=== PATIENT | female | born 1970 | race Caucasian/White ===

== ENCOUNTER → 2017-05-25 15:54 | Outpatient (CLI) | payer OTHER, SELFPAY ==
[2017-05-25 17:50] LABS: Absolute Lymphocyte Count 3.18 X10^3/ul (0.83-4.51); Absolute Neutrophil Count 4.8 X10^3/uL (2.0-7.7); Basophil# 0.08 X10^3/uL; Basophil% 0.9 % (0-1); Eosinophil# 0.28 X10^3/uL; Eosinophils% 3.1 % (0-5); Hematocrit 41.3 % (37-47); Hemoglobin 13.3 g/dl (12.0-15.0); Lymphocyte # 3.18 X10^3/ul (4.0); Lymphocyte % 35.4 % (19-41); Mean Corp Hgb Conc 32.2 g/gl (32-36); Mean Corpuscular Hgb 28.2 pg (27.0-32.0); Mean Corpuscular Volume 87.5 fL (81-99); Mean Platelet Vol. 11.7 fl (6.2-12.0); Monocyte% 6.7 % (0-10); Neutrophil # 4.83 X10^3/uL (2.7-7.7); Neutrophil % 53.8 % (47-70); Platelet Count 339 K/mm3 (150-450); RBC Distribution Width CV 13.6 % (11.6-14.6); RBC Distribution Width SD 42.6 fl (35.1-43.9); Red Blood Count 4.72 M/mm3 (4.2-5.4)
[2017-05-25 17:53] LABS: POSITIVE COUNT NO; POSITIVE DIFFERENTIAL NO; POSITIVE MORPHOLOGY NO
[2017-05-25 17:55] LABS: ALB/GLOB Ratio 0.8 RATIO (0.9-2.4); AST(SGOT) 19 U/L (15-37); Alanine Aminotransfer ALT/SGPT 32 U/L (13-56); Albumin, Serum 3.3 g/dL (3.2-5.0); Alkaline Phosphatase 80 U/L (45-117); Anion Gap 7 (5-15); BUN 15 mg/dL (7-18); BUN/Creat Ratio 17.2 RATIO (10-20); Calcium,Total 8.9 mg/dL (8.5-10.1); Chloride 102 mmol/L (98-107); Creatinine, Serum 0.87 mg/dL (0.55-1.02); EST Glomerular Filtration Rate 74 mL/min (>60); Est Glom Filt Rate - Afr Amer 90 mL/min (>60); Globulin 4.4 g/dL (2.2-4.2); Glucose 157 mg/dL (74-106); Potassium 4.1 mmol/L (3.5-5.1); Protein, Total 7.7 g/dL (6.4-8.2); Sodium Level 138 mmol/L (136-145)
== END ==
LOC: MTLAB 15:56
PROVIDERS: Family Provider Family Medicine; PCP Family Medicine; Visit Provider Internal Medicine Rheumatology
DX: L40.59 Other psoriatic arthropathy (principal); L40.8 Other psoriasis; M19.071 Primary osteoarthritis, right ankle and foot; M21.40 Flat foot [pes planus] (acquired), unspecified foot; M47.897 Other spondylosis, lumbosacral region; M47.892 Other spondylosis, cervical region; I10 Essential (primary) hypertension; R51 Headache; Z79.899 Other long term (current) drug therapy
CPT/HCPCS: 36415; 80053; 85025

== ENCOUNTER → 2017-08-16 16:07 | Outpatient (CLI) | payer OTHER, SELFPAY ==
[2017-08-16 17:50] LABS: Absolute Lymphocyte Count 2.83 X10^3/ul (0.83-4.51); Absolute Neutrophil Count 7.9 X10^3/uL (2.0-7.7); Basophil# 0.02 X10^3/uL; Basophil% 0.2 % (0-1); Eosinophil# 0.14 X10^3/uL; Eosinophils% 1.2 % (0-5); Hematocrit 39.4 % (37-47); Lymphocyte # 2.83 X10^3/ul (4.0); Mean Corpuscular Volume 84.7 fL (81-99); Mean Platelet Vol. 11.2 fl (6.2-12.0); Monocyte# 0.47 X10^3/uL; Monocyte% 4.1 % (0-10); Neutrophil # 7.85 X10^3/uL (2.7-7.7); Neutrophil % 69.2 % (47-70); Platelet Count 379 K/mm3 (150-450); RBC Distribution Width CV 14.2 % (11.6-14.6); RBC Distribution Width SD 43.1 fl (35.1-43.9); Red Blood Count 4.65 M/mm3 (4.2-5.4); White Blood Count 11.3 K/mm3 (4.4-11.0)
[2017-08-16 17:53] LABS: POSITIVE COUNT NO; POSITIVE DIFFERENTIAL NO; POSITIVE MORPHOLOGY NO
[2017-08-16 18:42] LABS: ALB/GLOB Ratio 0.7 RATIO (0.9-2.4); AST(SGOT) 8 U/L (15-37); Alanine Aminotransfer ALT/SGPT 25 U/L (13-56); Albumin, Serum 3.4 g/dL (3.2-5.0); Alkaline Phosphatase 80 U/L (45-117); Anion Gap 6 (5-15); BUN 18 mg/dL (7-18); BUN/Creat Ratio 20.5 RATIO (10-20); Chloride 104 mmol/L (98-107); Creatinine, Serum 0.88 mg/dL (0.55-1.02); EST Glomerular Filtration Rate 73 mL/min (>60); Est Glom Filt Rate - Afr Amer 89 mL/min (>60); Globulin 4.7 g/dL (2.2-4.2); Glucose 153 mg/dL (74-106); Potassium 4.1 mmol/L (3.5-5.1); Protein, Total 8.1 g/dL (6.4-8.2); Sodium Level 137 mmol/L (136-145)
== END ==
LOC: MTLAB 16:09
PROVIDERS: Family Provider Family Medicine; PCP Family Medicine; Visit Provider Internal Medicine Rheumatology
DX: L40.59 Other psoriatic arthropathy (principal); L40.8 Other psoriasis; M19.071 Primary osteoarthritis, right ankle and foot; M21.40 Flat foot [pes planus] (acquired), unspecified foot; M47.897 Other spondylosis, lumbosacral region; M47.892 Other spondylosis, cervical region; I10 Essential (primary) hypertension; R51 Headache; Z79.899 Other long term (current) drug therapy
CPT/HCPCS: 36415; 80053; 85025

== ENCOUNTER → 2017-11-02 16:04 | Outpatient (CLI) | payer OTHER, SELFPAY ==
[2017-11-02 17:30] LABS: Absolute Lymphocyte Count 2.38 X10^3/ul (0.83-4.51); Absolute Neutrophil Count 6.5 X10^3/uL (2.0-7.7); Basophil# 0.06 X10^3/uL; Basophil% 0.6 % (0-1); Eosinophil# 0.25 X10^3/uL; Eosinophils% 2.6 % (0-5); Hematocrit 39.6 % (37-47); Hemoglobin 12.7 g/dl (12.0-15.0); Lymphocyte # 2.38 X10^3/ul (4.0); Lymphocyte % 24.6 % (19-41); Mean Corp Hgb Conc 32.1 g/gl (32-36); Mean Corpuscular Hgb 27.4 pg (27.0-32.0); Mean Corpuscular Volume 85.5 fL (81-99); Mean Platelet Vol. 11.5 fl (6.2-12.0); Monocyte% 5.2 % (0-10); Neutrophil # 6.46 X10^3/uL (2.7-7.7); Neutrophil % 66.9 % (47-70); Platelet Count 388 K/mm3 (150-450); RBC Distribution Width CV 14.3 % (11.6-14.6); RBC Distribution Width SD 44.4 fl (35.1-43.9); Red Blood Count 4.63 M/mm3 (4.2-5.4); White Blood Count 9.7 K/mm3 (4.4-11.0)
[2017-11-02 17:32] LABS: POSITIVE COUNT NO; POSITIVE DIFFERENTIAL NO; POSITIVE MORPHOLOGY NO
[2017-11-02 17:59] LABS: ALB/GLOB Ratio 0.6 RATIO (0.9-2.4); AST(SGOT) 11 U/L (15-37); Alanine Aminotransfer ALT/SGPT 22 U/L (13-56); Albumin, Serum 3.2 g/dL (3.2-5.0); Alkaline Phosphatase 79 U/L (45-117); Anion Gap 7 (5-15); BUN 15 mg/dL (7-18); BUN/Creat Ratio 16.9 RATIO (10-20); Chloride 105 mmol/L (98-107); Creatinine, Serum 0.89 mg/dL (0.55-1.02); EST Glomerular Filtration Rate 72 mL/min (>60); Est Glom Filt Rate - Afr Amer 87 mL/min (>60); Glucose 148 mg/dL (74-106); Protein, Total 8.2 g/dL (6.4-8.2); Sodium Level 137 mmol/L (136-145)
== END ==
LOC: MTLAB 16:07
PROVIDERS: Family Provider Family Medicine; PCP Family Medicine; Visit Provider Internal Medicine Rheumatology
DX: L40.59 Other psoriatic arthropathy (principal); L40.8 Other psoriasis; M19.071 Primary osteoarthritis, right ankle and foot; M21.40 Flat foot [pes planus] (acquired), unspecified foot; M47.897 Other spondylosis, lumbosacral region; M47.892 Other spondylosis, cervical region; I10 Essential (primary) hypertension; R51 Headache; Z79.899 Other long term (current) drug therapy
CPT/HCPCS: 36415; 80053; 85025

== ENCOUNTER → 2018-02-05 07:36 | Outpatient (CLI) | payer OTHER, SELFPAY ==
[2018-02-05 11:03] LABS: ALB/GLOB Ratio 0.8 RATIO (0.9-2.4); AST(SGOT) 19 U/L (15-37); Alanine Aminotransfer ALT/SGPT 38 U/L (13-56); Albumin, Serum 3.4 g/dL (3.2-5.0); Alkaline Phosphatase 72 U/L (45-117); Anion Gap 12 (5-15); BUN 10 mg/dL (7-18); BUN/Creat Ratio 12.2 RATIO (10-20); Calcium,Total 8.8 mg/dL (8.5-10.1); Chloride 105 mmol/L (98-107); Creatinine, Serum 0.82 mg/dL (0.55-1.02); EST Glomerular Filtration Rate 79 mL/min (>60); Est Glom Filt Rate - Afr Amer 96 mL/min (>60); Globulin 4.5 g/dL (2.2-4.2); Glucose 130 mg/dL (74-106); Protein, Total 7.9 g/dL (6.4-8.2); Sodium Level 141 mmol/L (136-145)
[2018-02-05 12:45] LABS: Absolute Lymphocyte Count 2.34 X10^3/ul (0.83-4.51); Absolute Neutrophil Count 5.5 X10^3/uL (2.0-7.7); Basophil# 0.05 X10^3/uL; Basophil% 0.6 % (0-1); Eosinophil# 0.26 X10^3/uL; Hematocrit 40.5 % (37-47); Hemoglobin 12.8 g/dl (12.0-15.0); Lymphocyte # 2.34 X10^3/ul (4.0); Lymphocyte % 26.8 % (19-41); Mean Corp Hgb Conc 31.6 g/gl (32-36); Mean Corpuscular Hgb 28.1 pg (27.0-32.0); Mean Platelet Vol. 11.5 fl (6.2-12.0); Monocyte# 0.53 X10^3/uL; Monocyte% 6.1 % (0-10); Neutrophil # 5.54 X10^3/uL (2.7-7.7); Neutrophil % 63.3 % (47-70); Platelet Count 355 K/mm3 (150-450); RBC Distribution Width CV 16.2 % (11.6-14.6); RBC Distribution Width SD 52.7 fl (35.1-43.9); Red Blood Count 4.55 M/mm3 (4.2-5.4); White Blood Count 8.7 K/mm3 (4.4-11.0)
[2018-02-05 12:48] LABS: POSITIVE COUNT NO; POSITIVE DIFFERENTIAL NO; POSITIVE MORPHOLOGY NO
== END ==
LOC: MTLAB 07:39
PROVIDERS: Family Provider Family Medicine; PCP Family Medicine; Referring Provider Internal Medicine Rheumatology; Visit Provider Internal Medicine Rheumatology
DX: L40.59 Other psoriatic arthropathy (principal); L40.8 Other psoriasis; M19.071 Primary osteoarthritis, right ankle and foot; M21.40 Flat foot [pes planus] (acquired), unspecified foot; M47.897 Other spondylosis, lumbosacral region; M47.892 Other spondylosis, cervical region; I10 Essential (primary) hypertension; R51 Headache; Z79.899 Other long term (current) drug therapy
CPT/HCPCS: 36415; 80053; 85025

== ENCOUNTER → 2018-02-07 10:35 | Outpatient (CLI) | payer OTHER, SELFPAY ==
--- NOTE | 2018-02-07 13:32 | NEURO ---
NCS and/or EMG Patient Report Ordering Doctor: Nancy Arellano DATE OF SERVICE: 02/07/18 Andie Nickerson is a 47-year-old female who presents for electrodiagnostic testing of the right upper limb. Electrodiagnostic findings: Right median motor nerve demonstrates normal distal latency, amplitude and conduction velocity. Normal right ulnar motor response. Normal right ulnar and median F-wave. Sensory responses are within normal limits. Needle EMG testing of the right upper limb shows no evidence of denervation with normal motor unit action potentials. Electrodiagnostic impression: This is a normal electrodiagnostic study of the right upper limb. There is no electrodiagnostic evidence for peripheral neuropathy, including carpal tunnel syndrome. There is no electrodiagnostic evidence for cervical radiculopathy. If there are any further questions, please do not hesitate to contact me
== END ==
LOC: PSN 10:36
PROVIDERS: Family Provider Family Medicine; PCP Family Medicine; Referring Provider Family Medicine; Visit Provider Family Medicine
DX: G56.01 Carpal tunnel syndrome, right upper limb (principal)
CPT/HCPCS: 95886; 95909

== ENCOUNTER → 2018-05-04 08:05 | Outpatient (CLI) | payer OTHER, SELFPAY ==
[2018-05-04 10:35] LABS: Absolute Lymphocyte Count 2.54 X10^3/ul (0.83-4.51); Absolute Neutrophil Count 5.4 X10^3/uL (2.0-7.7); Basophil# 0.08 X10^3/uL; Basophil% 0.9 % (0-1); Eosinophils% 2.2 % (0-5); Hematocrit 39.9 % (37-47); Lymphocyte # 2.54 X10^3/ul (4.0); Lymphocyte % 28.5 % (19-41); Mean Corp Hgb Conc 32.6 g/gl (32-36); Mean Corpuscular Hgb 28.6 pg (27.0-32.0); Mean Corpuscular Volume 87.9 fL (81-99); Mean Platelet Vol. 11.8 fl (6.2-12.0); Monocyte# 0.65 X10^3/uL; Monocyte% 7.3 % (0-10); Neutrophil % 60.8 % (47-70); Platelet Count 334 K/mm3 (150-450); RBC Distribution Width CV 14.2 % (11.6-14.6); RBC Distribution Width SD 44.1 fl (35.1-43.9); Red Blood Count 4.54 M/mm3 (4.2-5.4); White Blood Count 8.9 K/mm3 (4.4-11.0)
[2018-05-04 10:39] LABS: POSITIVE COUNT NO; POSITIVE DIFFERENTIAL NO; POSITIVE MORPHOLOGY NO
[2018-05-04 10:46] LABS: ALB/GLOB Ratio 0.8 RATIO (0.9-2.4); AST(SGOT) 12 U/L (15-37); Alanine Aminotransfer ALT/SGPT 31 U/L (13-56); Albumin, Serum 3.3 g/dL (3.2-5.0); Alkaline Phosphatase 78 U/L (45-117); Anion Gap 6 (5-15); BUN 10 mg/dL (7-18); BUN/Creat Ratio 10.9 RATIO (10-20); Calcium,Total 8.4 mg/dL (8.5-10.1); Chloride 107 mmol/L (98-107); Creatinine, Serum 0.92 mg/dL (0.55-1.02); EST Glomerular Filtration Rate 70 mL/min (>60); Est Glom Filt Rate - Afr Amer 84 mL/min (>60); Globulin 4.4 g/dL (2.2-4.2); Glucose 107 mg/dL (74-106); Potassium 3.9 mmol/L (3.5-5.1); Protein, Total 7.7 g/dL (6.4-8.2); Sodium Level 140 mmol/L (136-145)
== END ==
LOC: MTLAB 08:11
PROVIDERS: Family Provider Family Medicine; PCP Family Medicine; Referring Provider Internal Medicine Rheumatology; Visit Provider Internal Medicine Rheumatology
DX: L40.59 Other psoriatic arthropathy (principal); L40.8 Other psoriasis; M19.071 Primary osteoarthritis, right ankle and foot; M21.40 Flat foot [pes planus] (acquired), unspecified foot; M47.897 Other spondylosis, lumbosacral region; M47.892 Other spondylosis, cervical region; I10 Essential (primary) hypertension; R51 Headache; Z79.899 Other long term (current) drug therapy
CPT/HCPCS: 36415; 80053; 85025

== ENCOUNTER → 2018-07-23 | Outpatient (CLI) | payer OTHER, SELFPAY ==
[2018-07-23 17:47] LABS: ALB/GLOB Ratio 0.9 RATIO (0.9-2.4); AST(SGOT) 38 U/L (15-37); Alanine Aminotransfer ALT/SGPT 61 U/L (13-56); Albumin, Serum 3.8 g/dL (3.2-5.0); Alkaline Phosphatase 80 U/L (45-117); Anion Gap 5 (5-15); BUN 13 mg/dL (7-18); BUN/Creat Ratio 12.5 RATIO (10-20); Chloride 103 mmol/L (98-107); Creatinine, Serum 1.04 mg/dL (0.55-1.02); EST Glomerular Filtration Rate 60 mL/min (>60); Est Glom Filt Rate - Afr Amer 73 mL/min (>60); Globulin 4.3 g/dL (2.2-4.2); Glucose 116 mg/dL (74-106); Potassium 3.9 mmol/L (3.5-5.1); Protein, Total 8.1 g/dL (6.4-8.2); Sodium Level 136 mmol/L (136-145)
[2018-07-23 17:58] LABS: Absolute Lymphocyte Count 3.02 X10^3/ul (0.83-4.51); Absolute Neutrophil Count 4.2 X10^3/uL (2.0-7.7); Basophil# 0.09 X10^3/uL; Basophil% 1.1 % (0-1); Eosinophil# 0.37 X10^3/uL; Eosinophils% 4.4 % (0-5); Hematocrit 41.1 % (37-47); Hemoglobin 13.5 g/dl (12.0-15.0); Lymphocyte # 3.02 X10^3/ul (4.0); Lymphocyte % 35.7 % (19-41); Mean Corp Hgb Conc 32.8 g/gl (32-36); Mean Corpuscular Hgb 28.6 pg (27.0-32.0); Mean Corpuscular Volume 87.1 fL (81-99); Mean Platelet Vol. 10.9 fl (6.2-12.0); Monocyte# 0.75 X10^3/uL; Monocyte% 8.9 % (0-10); Neutrophil % 49.7 % (47-70); Platelet Count 355 K/mm3 (150-450); RBC Distribution Width CV 14.4 % (11.6-14.6); RBC Distribution Width SD 45.8 fl (35.1-43.9); Red Blood Count 4.72 M/mm3 (4.2-5.4); White Blood Count 8.5 K/mm3 (4.4-11.0)
[2018-07-23 17:59] LABS: POSITIVE COUNT NO; POSITIVE DIFFERENTIAL NO; POSITIVE MORPHOLOGY NO
== END | disposition home or self-care (01) ==
LOC: MTLAB 15:32
PROVIDERS: Family Provider Family Medicine; PCP Family Medicine; Referring Provider Internal Medicine Rheumatology; Visit Provider Internal Medicine Rheumatology
DX: L40.59 Other psoriatic arthropathy (principal); L40.8 Other psoriasis; M19.071 Primary osteoarthritis, right ankle and foot; M21.40 Flat foot [pes planus] (acquired), unspecified foot; M47.897 Other spondylosis, lumbosacral region; M47.892 Other spondylosis, cervical region; I10 Essential (primary) hypertension; R51 Headache; Z79.899 Other long term (current) drug therapy
CPT/HCPCS: 36415; 80053; 85025

== ENCOUNTER → 2018-08-06 | Outpatient (CLI) | payer OTHER, SELFPAY ==
--- NOTE | 2018-08-06 09:06 | US_ITS ---
STUDY: ABDOMINAL ULTRASOUND - RIGHT UPPER QUADRANT REASON FOR VISIT: Female, 48 years old. Elevated LFTs. TECHNIQUE: Ultrasound evaluation of the right upper quadrant was performed with real-time and static parrish-scale imaging. TECHNICAL QUALITY: Limited. Examination limited due to obesity. COMPARISON: June 16, 2014. FINDINGS: Liver: The liver measures 17.3 cm. There is increased echogenicity consistent with fatty infiltration. The bile ducts are within normal limits. There is hepatic color flow. The direction of portal flow is hepatopetal. There is no demonstrated mass lesion. Gallbladder: Normal distended gallbladder. The gallbladder wall measures 2.0 mm. There is a negative sonographic Arciniega's sign. There is no pericholecystic fluid. There are no gallstones. Common Bile Duct (C.B.D.): The common bile duct measures 4.0 mm. Pancreas: The distal pancreatic body and pancreatic tail are obscured with nondiagnostic evaluation secondary to technical considerations listed above. The remaining pancreatic anatomic segments appear unremarkable. Right Kidney: Normal size of the right kidney. The right kidney measures 11.2 x 5.3 x 4.5 cm. Normal renal cortex. The right cortex measures 1.4 cm. There is no demonstrated renal mass or cyst. There is no right hydronephrosis. US/Liver IMPRESSION: Diffuse increased hepatic echogenicity without sonographically evident discrete mass or cyst. This is a nonspecific finding, however is most often due to fatty infiltration. Stable exam. Technically limited exam with nondiagnostic evaluation of the distal pancreatic body and pancreatic tail. Electronically Signed: Cesario De Los Santos MD at 14:08 EDT , Service support ,
== END | disposition home or self-care (01) ==
LOC: US 09:01
PROVIDERS: Family Provider Family Medicine; PCP Family Medicine; Referring Provider Internal Medicine Rheumatology; Visit Provider Internal Medicine Rheumatology
DX: L40.59 Other psoriatic arthropathy (principal); L40.8 Other psoriasis; M19.071 Primary osteoarthritis, right ankle and foot; M21.40 Flat foot [pes planus] (acquired), unspecified foot; M47.897 Other spondylosis, lumbosacral region; M47.892 Other spondylosis, cervical region; I10 Essential (primary) hypertension; R51 Headache; Z79.899 Other long term (current) drug therapy
CPT/HCPCS: 76705

== ENCOUNTER → 2018-08-20 | Outpatient (CLI) | payer OTHER, SELFPAY ==
[2018-08-25 12:06] LABS: Chlamydia By Nucleic Acid AMP Negative (Negative)
[2018-08-25 12:31] LABS: Gonococcus By Nucleic Acid AMP Negative (Negative)
[2018-08-25 12:48] LABS: HPV Reflexed? NOT INDICATED
== END | disposition home or self-care (01) ==
PROVIDERS: Family Provider Family Medicine; PCP Family Medicine; Referring Provider Nurse Practitioner Adult Health; Visit Provider Nurse Practitioner Adult Health
DX: Z12.4 Encounter for screening for malignant neoplasm of cervix (principal)
CPT/HCPCS: 87491; 87591; 88175; G0145

== ENCOUNTER → 2018-08-29 | Outpatient (CLI) | payer OTHER, SELFPAY ==
[2018-08-29 13:17] LABS: Cholesterol 147 mg/dL (200); Glucose 130 mg/dL (74-106); High Density Lipoprotein 51 mg/dL; Triglycerides 91 mg/dL; Very Low Density Lipoprotein 18 mg/dL (5-40)
[2018-08-29 13:24] LABS: AST(SGOT) 22 U/L (15-37); Alanine Aminotransfer ALT/SGPT 50 U/L (13-56); Albumin, Serum 3.6 g/dL (3.2-5.0); Alkaline Phosphatase 69 U/L (45-117); Bilirubin, Direct 0.14 mg/dL (0.00-0.30); Globulin 4.4 g/dL (2.2-4.2)
== END | disposition home or self-care (01) ==
LOC: MTLAB 09:59
PROVIDERS: Internal Medicine Rheumatology; Family Provider Family Medicine; PCP Family Medicine; Referring Provider Nurse Practitioner Adult Health; Visit Provider Nurse Practitioner Adult Health
DX: Z00.00 Encounter for general adult medical examination without abnormal findings (principal); L40.59 Other psoriatic arthropathy; L40.8 Other psoriasis; M19.071 Primary osteoarthritis, right ankle and foot; M21.40 Flat foot [pes planus] (acquired), unspecified foot; M47.897 Other spondylosis, lumbosacral region; M47.892 Other spondylosis, cervical region; I10 Essential (primary) hypertension; R51 Headache; Z13.220 Encounter for screening for lipoid disorders; Z79.899 Other long term (current) drug therapy
CPT/HCPCS: 36415; 80061; 80076; 82947

== ENCOUNTER → 2018-10-26 | Outpatient (CLI) | payer OTHER, SELFPAY ==
[2018-10-26 14:46] LABS: Absolute Lymphocyte Count 2.72 X10^3/uL (0.83-4.51); Absolute Neutrophil Count 5.3 X10^3/uL (2.0-7.7); Basophil# 0.09 X10^3/uL; Eosinophil# 0.19 X10^3/uL; Eosinophils% 2.1 % (0-5); Hemoglobin 13.1 g/dL (12.0-15.0); Lymphocyte # 2.72 X10^3/ul (4.0); Lymphocyte % 30.5 % (19-41); Mean Corp Hgb Conc 32.8 g/dL (32-36); Mean Corpuscular Hgb 28.4 pg (27.0-32.0); Mean Corpuscular Volume 86.8 fL (81-99); Monocyte% 6.7 % (0-10); NRBC Flagged by Analyzer 0 % (0-5); Neutrophil # 5.28 X10^3/uL (2.7-7.7); Neutrophil % 59.1 % (47-70); Platelet Count 384 K/mm3 (150-450); RBC Distribution Width CV 13.7 % (11.6-14.6); Red Blood Count 4.61 M/mm3 (4.2-5.4); White Blood Count 8.9 K/mm3 (4.4-11.0)
[2018-10-26 15:16] LABS: ALB/GLOB Ratio 0.8 RATIO (0.9-2.4); AST(SGOT) 25 U/L (15-37); Alanine Aminotransfer ALT/SGPT 48 U/L (13-56); Albumin, Serum 3.5 g/dL (3.2-5.0); Alkaline Phosphatase 82 U/L (45-117); Anion Gap 9 (5-15); BUN 14 mg/dL (7-18); BUN/Creat Ratio 14.8 RATIO (10-20); Chloride 105 mmol/L (98-107); Creatinine, Serum 0.95 mg/dL (0.55-1.02); EST Glomerular Filtration Rate 67 mL/min (>60); Est Glom Filt Rate - Afr Amer 81 mL/min (>60); Globulin 4.5 g/dL (2.2-4.2); Glucose 81 mg/dL (74-106); Potassium 3.8 mmol/L (3.5-5.1); Sodium Level 140 mmol/L (136-145)
== END | disposition home or self-care (01) ==
LOC: MTLAB 12:12
PROVIDERS: Family Provider Family Medicine; PCP Family Medicine; Referring Provider Internal Medicine Rheumatology; Visit Provider Internal Medicine Rheumatology
DX: L40.59 Other psoriatic arthropathy (principal); L40.8 Other psoriasis; M19.071 Primary osteoarthritis, right ankle and foot; K76.0 Fatty (change of) liver, not elsewhere classified; M21.40 Flat foot [pes planus] (acquired), unspecified foot; M47.897 Other spondylosis, lumbosacral region; M47.892 Other spondylosis, cervical region; R51 Headache; Z79.899 Other long term (current) drug therapy
CPT/HCPCS: 36415; 80053; 85025

== ENCOUNTER → 2019-01-25 | Outpatient (CLI) | payer OTHER, SELFPAY ==
--- NOTE | 2019-01-25 15:19 | BI_ITS ---
MAMMOGRAPHY - BILATERAL SCREENING REASON FOR EXAM: Female, 48 years old. Routine annual screening examination. PERTINENT HISTORY: Non-contributory. TECHNIQUE: Digital bilateral breast darian (3D mammographic acquisition) in the CC and MLO projections. 2-D mediolateral oblique (MLO) and craniocaudad (CC) views of both breasts were obtained. CAD: Full Field Digital Mammography with Computer Added Detection was performed. COMPARISON: Comparison is made with prior examination dated April 28, 2015. FINDINGS: Breast Composition: There are scattered areas of fibroglandular density. There are no dominant masses or suspicious calcifications. No other significant abnormalities are identified. There has been no significant change since the prior study. BI/SCREEN MAMM (CAD) W/DARIAN BILAT IMPRESSION: Stable bilateral screening mammogram. Yearly follow-up mammogram recommended. (A) ASSESSMENT CATEGORY: BIRADS Category 2: Benign. A letter regarding these results will be sent to the patient by the facility within 30 days. Approximately 10% of breast cancers are not detected by mammography. A normal mammogram should not delay biopsy of a clinically suspicious abnormality. [id number] Electronically Signed: Dominik Ivey, at 9:30 EDT , Service support ,
[2019-01-25 15:49] LABS: Absolute Lymphocyte Count 3.65 X10^3/uL (0.83-4.51); Absolute Neutrophil Count 4.8 X10^3/uL (2.0-7.7); Basophil# 0.09 X10^3/uL; Basophil% 0.9 % (0-1); Eosinophil# 0.31 X10^3/uL; Eosinophils% 3.2 % (0-5); Hematocrit 41.6 % (37-47); Hemoglobin 13.2 g/dL (12.0-15.0); Lymphocyte # 3.65 X10^3/ul (4.0); Lymphocyte % 37.6 % (19-41); Mean Corp Hgb Conc 31.7 g/dL (32-36); Mean Corpuscular Hgb 27.7 pg (27.0-32.0); Mean Corpuscular Volume 87.4 fL (81-99); Mean Platelet Vol. 10.9 fl (6.2-12.0); Monocyte# 0.76 X10^3/uL; Monocyte% 7.8 % (0-10); NRBC Flagged by Analyzer 0 % (0-5); Neutrophil # 4.84 X10^3/uL (2.7-7.7); Platelet Count 359 K/mm3 (150-450); RBC Distribution Width SD 41.4 fl (35.1-43.9); Red Blood Count 4.76 M/mm3 (4.2-5.4); White Blood Count 9.7 K/mm3 (4.4-11.0)
[2019-01-25 15:58] LABS: ALB/GLOB Ratio 0.7 RATIO (0.9-2.4); AST(SGOT) 29 U/L (15-37); Alanine Aminotransfer ALT/SGPT 54 U/L (13-56); Albumin, Serum 3.3 g/dL (3.2-5.0); Alkaline Phosphatase 77 U/L (45-117); Anion Gap 5 (5-15); BUN 9 mg/dL (7-18); BUN/Creat Ratio 10.3 RATIO (10-20); Calcium,Total 8.9 mg/dL (8.5-10.1); Chloride 104 mmol/L (98-107); Creatinine, Serum 0.87 mg/dL (0.55-1.02); EST Glomerular Filtration Rate 73 mL/min (>60); Est Glom Filt Rate - Afr Amer 89 mL/min (>60); Globulin 4.7 g/dL (2.2-4.2); Glucose 136 mg/dL (74-106); Potassium 3.9 mmol/L (3.5-5.1); Sodium Level 136 mmol/L (136-145)
== END | disposition home or self-care (01) ==
LOC: OPBI 15:18
PROVIDERS: Internal Medicine Rheumatology; Family Provider Family Medicine; PCP Family Medicine; Referring Provider Nurse Practitioner Adult Health; Visit Provider Nurse Practitioner Adult Health
DX: L40.59 Other psoriatic arthropathy (principal); Z12.31 Encounter for screening mammogram for malignant neoplasm of breast; L40.8 Other psoriasis; M19.071 Primary osteoarthritis, right ankle and foot; K76.0 Fatty (change of) liver, not elsewhere classified; M21.40 Flat foot [pes planus] (acquired), unspecified foot; M47.897 Other spondylosis, lumbosacral region; M47.892 Other spondylosis, cervical region; R51 Headache; Z79.899 Other long term (current) drug therapy
CPT/HCPCS: 36415; 77063; 77067; 80053; 85025

== ENCOUNTER → 2019-04-18 15:45 | Outpatient (CLI) | payer OTHER, SELFPAY ==
[2019-04-18 17:33] LABS: Basophil# 0.06 X10^3/uL; Basophil% 0.5 % (0-1); Eosinophil# 0.08 X10^3/uL; Eosinophils% 0.7 % (0-5); Hematocrit 40.9 % (37-47); Lymphocyte % 25.6 % (19-41); Mean Corp Hgb Conc 31.8 g/dL (32-36); Mean Corpuscular Hgb 27.4 pg (27.0-32.0); Mean Corpuscular Volume 86.3 fL (81-99); Mean Platelet Vol. 11.1 fl (6.2-12.0); Monocyte% 4.3 % (0-10); NRBC Flagged by Analyzer 0 % (0-5); Neutrophil # 8.02 X10^3/uL (2.7-7.7); Neutrophil % 68.4 % (47-70); Platelet Count 420 K/mm3 (150-450); RBC Distribution Width CV 13.8 % (11.6-14.6); RBC Distribution Width SD 43.1 fl (35.1-43.9); Red Blood Count 4.74 M/mm3 (4.2-5.4); White Blood Count 11.7 K/mm3 (4.4-11.0)
[2019-04-18 18:16] LABS: ALB/GLOB Ratio 0.7 RATIO (0.9-2.4); AST(SGOT) 22 U/L (15-37); Alanine Aminotransfer ALT/SGPT 54 U/L (13-56); Albumin, Serum 3.4 g/dL (3.2-5.0); Alkaline Phosphatase 77 U/L (45-117); Anion Gap 8 (5-15); BUN 16 mg/dL (7-18); BUN/Creat Ratio 16.7 RATIO (10-20); Calcium,Total 8.9 mg/dL (8.5-10.1); Chloride 102 mmol/L (98-107); Creatinine, Serum 0.96 mg/dL (0.55-1.02); EST Glomerular Filtration Rate 66 mL/min (>60); Est Glom Filt Rate - Afr Amer 80 mL/min (>60); Globulin 4.7 g/dL (2.2-4.2); Glucose 205 mg/dL (74-106); Potassium 4.1 mmol/L (3.5-5.1); Protein, Total 8.1 g/dL (6.4-8.2); Sodium Level 135 mmol/L (136-145)
== END ==
LOC: MTLAB 15:47
PROVIDERS: PCP Family Medicine; Referring Provider Internal Medicine Rheumatology; Visit Provider Internal Medicine Rheumatology
DX: L40.59 Other psoriatic arthropathy (principal); L40.8 Other psoriasis; M19.071 Primary osteoarthritis, right ankle and foot; K76.0 Fatty (change of) liver, not elsewhere classified; M21.40 Flat foot [pes planus] (acquired), unspecified foot; M47.897 Other spondylosis, lumbosacral region; M47.892 Other spondylosis, cervical region; R51 Headache; Z79.899 Other long term (current) drug therapy
CPT/HCPCS: 36415; 80053; 85025

== ENCOUNTER → 2019-07-02 14:41 | Outpatient (CLI) | payer OTHER, SELFPAY ==
[2019-07-02 17:46] LABS: Absolute Lymphocyte Count 3.51 X10^3/uL (0.83-4.51); Absolute Neutrophil Count 4.9 X10^3/uL (2.0-7.7); Basophil# 0.09 X10^3/uL; Eosinophil# 0.15 X10^3/uL; Eosinophils% 1.7 % (0-5); Hematocrit 43.1 % (37-47); Hemoglobin 13.9 g/dL (12.0-15.0); Lymphocyte # 3.51 X10^3/ul (4.0); Lymphocyte % 38.6 % (19-41); Mean Corp Hgb Conc 32.3 g/dL (32-36); Mean Corpuscular Hgb 28.7 pg (27.0-32.0); Mean Corpuscular Volume 88.9 fL (81-99); Mean Platelet Vol. 11.1 fl (6.2-12.0); Monocyte# 0.46 X10^3/uL; Monocyte% 5.1 % (0-10); NRBC Flagged by Analyzer 0 % (0-5); Neutrophil # 4.85 X10^3/uL (2.7-7.7); Neutrophil % 53.3 % (47-70); Platelet Count 359 K/mm3 (150-450); RBC Distribution Width CV 14.6 % (11.6-14.6); RBC Distribution Width SD 46.5 fl (35.1-43.9); Red Blood Count 4.85 M/mm3 (4.2-5.4); White Blood Count 9.1 K/mm3 (4.4-11.0)
[2019-07-02 18:10] LABS: ALB/GLOB Ratio 0.8 RATIO (0.9-2.4); AST(SGOT) 47 U/L (15-37); Alanine Aminotransfer ALT/SGPT 86 U/L (13-56); Albumin, Serum 3.5 g/dL (3.2-5.0); Alkaline Phosphatase 66 U/L (45-117); Anion Gap 8 (5-15); BUN 12 mg/dL (7-18); BUN/Creat Ratio 13.2 RATIO (10-20); Calcium,Total 9.3 mg/dL (8.5-10.1); Chloride 106 mmol/L (98-107); Creatinine, Serum 0.91 mg/dL (0.55-1.02); EST Glomerular Filtration Rate 70 mL/min (>60); Est Glom Filt Rate - Afr Amer 85 mL/min (>60); Globulin 4.6 g/dL (2.2-4.2); Glucose 127 mg/dL (74-106); Potassium 4.1 mmol/L (3.5-5.1); Protein, Total 8.1 g/dL (6.4-8.2); Sodium Level 139 mmol/L (136-145)
== END ==
LOC: MTLAB 14:43
PROVIDERS: PCP Family Medicine; Referring Provider Internal Medicine Rheumatology; Visit Provider Internal Medicine Rheumatology
DX: L40.59 Other psoriatic arthropathy (principal); L40.8 Other psoriasis; M19.071 Primary osteoarthritis, right ankle and foot; K76.0 Fatty (change of) liver, not elsewhere classified; M21.40 Flat foot [pes planus] (acquired), unspecified foot; M47.897 Other spondylosis, lumbosacral region; M47.892 Other spondylosis, cervical region; R51 Headache; Z79.899 Other long term (current) drug therapy
CPT/HCPCS: 36415; 80053; 85025

== ENCOUNTER → 2019-08-05 16:15 | Outpatient (CLI) | payer OTHER, SELFPAY ==
[2019-08-05 17:49] LABS: Absolute Lymphocyte Count 2.03 X10^3/uL (0.83-4.51); Absolute Neutrophil Count 8.4 X10^3/uL (2.0-7.7); Basophil# 0.05 X10^3/uL; Basophil% 0.5 % (0-1); Eosinophil# 0.01 X10^3/uL; Eosinophils% 0.1 % (0-5); Hematocrit 42.4 % (37-47); Hemoglobin 13.9 g/dL (12.0-15.0); Lymphocyte # 2.03 X10^3/ul (4.0); Lymphocyte % 18.5 % (19-41); Mean Corp Hgb Conc 32.8 g/dL (32-36); Mean Corpuscular Hgb 28.7 pg (27.0-32.0); Mean Corpuscular Volume 87.4 fL (81-99); Mean Platelet Vol. 11.5 fl (6.2-12.0); Monocyte# 0.44 X10^3/uL; NRBC Flagged by Analyzer 0 % (0-5); Neutrophil # 8.36 X10^3/uL (2.7-7.7); Neutrophil % 76.4 % (47-70); Platelet Count 351 K/mm3 (150-450); RBC Distribution Width CV 13.1 % (11.6-14.6); RBC Distribution Width SD 40.8 fl (35.1-43.9); Red Blood Count 4.85 M/mm3 (4.2-5.4)
[2019-08-05 18:06] LABS: Anion Gap 7 (5-15); BUN 17 mg/dL (7-18); BUN/Creat Ratio 15.5 RATIO (10-20); Calcium,Total 9.2 mg/dL (8.5-10.1); Chloride 102 mmol/L (98-107); EST Glomerular Filtration Rate 56 mL/min (>60); Est Glom Filt Rate - Afr Amer 68 mL/min (>60); Glucose 239 mg/dL (74-106); Potassium 4.1 mmol/L (3.5-5.1); Sodium Level 135 mmol/L (136-145)
== END ==
LOC: MTLAB 16:17
PROVIDERS: PCP Family Medicine; Referring Provider Family Medicine; Visit Provider Family Medicine
DX: I10 Essential (primary) hypertension (principal); F32.9 Major depressive disorder, single episode, unspecified
CPT/HCPCS: 36415; 80048; 84443; 85025

== ENCOUNTER → 2019-09-05 15:29 | Outpatient (CLI) | payer OTHER, SELFPAY ==
[2019-09-05 17:28] LABS: Absolute Lymphocyte Count 3.71 X10^3/uL (0.83-4.51); Absolute Neutrophil Count 4.7 X10^3/uL (2.0-7.7); Basophil# 0.09 X10^3/uL; Eosinophil# 0.23 X10^3/uL; Eosinophils% 2.5 % (0-5); Hematocrit 42.2 % (37-47); Hemoglobin 13.2 g/dL (12.0-15.0); Lymphocyte # 3.71 X10^3/ul (4.0); Lymphocyte % 39.6 % (19-41); Mean Corp Hgb Conc 31.3 g/dL (32-36); Mean Corpuscular Hgb 27.4 pg (27.0-32.0); Mean Corpuscular Volume 87.6 fL (81-99); Mean Platelet Vol. 11.4 fl (6.2-12.0); Monocyte# 0.57 X10^3/uL; Monocyte% 6.1 % (0-10); NRBC Flagged by Analyzer 0 % (0-5); Neutrophil # 4.74 X10^3/uL (2.7-7.7); Neutrophil % 50.5 % (47-70); Platelet Count 369 K/mm3 (150-450); RBC Distribution Width CV 12.4 % (11.6-14.6); RBC Distribution Width SD 39.6 fl (35.1-43.9); Red Blood Count 4.82 M/mm3 (4.2-5.4); White Blood Count 9.4 K/mm3 (4.4-11.0)
[2019-09-05 17:44] LABS: ALB/GLOB Ratio 0.7 RATIO (0.9-2.4); AST(SGOT) 27 U/L (15-37); Alanine Aminotransfer ALT/SGPT 66 U/L (13-56); Albumin, Serum 3.3 g/dL (3.2-5.0); Alkaline Phosphatase 77 U/L (45-117); Anion Gap 7 (5-15); BUN 13 mg/dL (7-18); Calcium,Total 9.1 mg/dL (8.5-10.1); Chloride 100 mmol/L (98-107); Creatinine, Serum 0.93 mg/dL (0.55-1.02); EST Glomerular Filtration Rate 68 mL/min (>60); Est Glom Filt Rate - Afr Amer 83 mL/min (>60); Globulin 4.8 g/dL (2.2-4.2); Glucose 109 mg/dL (74-106); Potassium 3.8 mmol/L (3.5-5.1); Protein, Total 8.1 g/dL (6.4-8.2); Sodium Level 134 mmol/L (136-145)
== END ==
LOC: MTLAB 15:31
PROVIDERS: PCP Family Medicine; Referring Provider Internal Medicine Rheumatology; Visit Provider Internal Medicine Rheumatology
DX: L40.59 Other psoriatic arthropathy (principal); L40.8 Other psoriasis; M19.071 Primary osteoarthritis, right ankle and foot; K76.0 Fatty (change of) liver, not elsewhere classified; M21.40 Flat foot [pes planus] (acquired), unspecified foot; M47.897 Other spondylosis, lumbosacral region; M47.892 Other spondylosis, cervical region; R51 Headache; Z79.899 Other long term (current) drug therapy
CPT/HCPCS: 36415; 80053; 85025

== ENCOUNTER → 2019-12-30 07:45 | Outpatient (CLI) | payer OTHER, SELFPAY ==
[2019-12-30 09:57] LABS: Absolute Lymphocyte Count 4.64 X10^3/uL (0.83-4.51); Absolute Neutrophil Count 7.3 X10^3/uL (2.0-7.7); Basophil# 0.17 X10^3/uL; Basophil% 1.3 % (0-1); Eosinophil# 0.77 X10^3/uL; Eosinophils% 5.7 % (0-5); Hematocrit 41.6 % (37-47); Hemoglobin 13.2 g/dL (12.0-15.0); Lymphocyte # 4.64 X10^3/ul (4.0); Lymphocyte % 34.2 % (19-41); Mean Corp Hgb Conc 31.7 g/dL (32-36); Mean Corpuscular Hgb 26.1 pg (27.0-32.0); Mean Corpuscular Volume 82.4 fL (81-99); Mean Platelet Vol. 11.2 fl (6.2-12.0); Monocyte# 0.63 X10^3/uL; Monocyte% 4.6 % (0-10); NRBC Flagged by Analyzer 0 % (0-5); Neutrophil # 7.31 X10^3/uL (2.7-7.7); Neutrophil % 53.8 % (47-70); POSITIVE MORPHOLOGY YES; Platelet Count 376 K/mm3 (150-450); RBC Distribution Width CV 13.6 % (11.6-14.6); RBC Distribution Width SD 40.3 fl (35.1-43.9); Red Blood Count 5.05 M/mm3 (4.2-5.4); White Blood Count 13.6 K/mm3 (4.4-11.0)
[2019-12-30 10:02] LABS: Differential Indicated SCAN CRITERIA MET
[2019-12-30 10:11] LABS: ALB/GLOB Ratio 0.7 RATIO (0.9-2.4); AST(SGOT) 17 U/L (15-37); Alanine Aminotransfer ALT/SGPT 39 U/L (13-56); Albumin, Serum 3.4 g/dL (3.2-5.0); Alkaline Phosphatase 81 U/L (45-117); Anion Gap 6 (5-15); BUN 13 mg/dL (7-18); BUN/Creat Ratio 14.2 RATIO (10-20); Chloride 106 mmol/L (98-107); Creatinine, Serum 0.92 mg/dL (0.55-1.02); EST Glomerular Filtration Rate 69 mL/min (>60); Est Glom Filt Rate - Afr Amer 84 mL/min (>60); Globulin 4.8 g/dL (2.2-4.2); Glucose 167 mg/dL (74-106); Potassium 3.6 mmol/L (3.5-5.1); Protein, Total 8.2 g/dL (6.4-8.2); Sodium Level 139 mmol/L (136-145)
[2019-12-30 11:07] LABS: Atypical Lymphocyte 1+ %; Platelet Estimate ADEQUATE (ADEQ); Red Cell Morphology NORM C+C NORMAL (NORM C&C)
== END ==
LOC: MTLAB 07:47
PROVIDERS: PCP Family Medicine; Referring Provider Internal Medicine Rheumatology; Visit Provider Internal Medicine Rheumatology
DX: L40.59 Other psoriatic arthropathy (principal); L40.8 Other psoriasis; M19.071 Primary osteoarthritis, right ankle and foot; K76.0 Fatty (change of) liver, not elsewhere classified; M21.40 Flat foot [pes planus] (acquired), unspecified foot; M47.897 Other spondylosis, lumbosacral region; M47.892 Other spondylosis, cervical region; R51 Headache; Z79.899 Other long term (current) drug therapy
CPT/HCPCS: 36415; 80053; 85025

== ENCOUNTER → 2020-01-27 07:54 | Outpatient (CLI) | payer OTHER, SELFPAY ==
[2020-01-27 10:41] LABS: Absolute Lymphocyte Count 2.78 X10^3/uL (0.83-4.51); Absolute Neutrophil Count 7.4 X10^3/uL (2.0-7.7); Basophil# 0.08 X10^3/uL; Basophil% 0.7 % (0-1); Eosinophils% 2.7 % (0-5); Hematocrit 41.3 % (37-47); Hemoglobin 13.1 g/dL (12.0-15.0); Lymphocyte # 2.78 X10^3/ul (4.0); Lymphocyte % 25.2 % (19-41); Mean Corp Hgb Conc 31.7 g/dL (32-36); Mean Corpuscular Hgb 26.5 pg (27.0-32.0); Mean Corpuscular Volume 83.4 fL (81-99); Mean Platelet Vol. 11.3 fl (6.2-12.0); Monocyte# 0.43 X10^3/uL; Monocyte% 3.9 % (0-10); NRBC Flagged by Analyzer 0 % (0-5); Neutrophil # 7.38 X10^3/uL (2.7-7.7); Platelet Count 374 K/mm3 (150-450); RBC Distribution Width CV 13.4 % (11.6-14.6); RBC Distribution Width SD 40.4 fl (35.1-43.9); Red Blood Count 4.95 M/mm3 (4.2-5.4)
[2020-01-27 11:32] LABS: ALB/GLOB Ratio 0.7 RATIO (0.9-2.4); AST(SGOT) 25 U/L (15-37); Alanine Aminotransfer ALT/SGPT 45 U/L (13-56); Albumin, Serum 3.4 g/dL (3.2-5.0); Alkaline Phosphatase 89 U/L (45-117); Anion Gap 11 (5-15); BUN 9 mg/dL (7-18); BUN/Creat Ratio 9.6 RATIO (10-20); Calcium,Total 9.2 mg/dL (8.5-10.1); Chloride 105 mmol/L (98-107); Creatinine, Serum 0.94 mg/dL (0.55-1.02); EST Glomerular Filtration Rate 67 mL/min (>60); Est Glom Filt Rate - Afr Amer 81 mL/min (>60); Globulin 4.9 g/dL (2.2-4.2); Glucose 155 mg/dL (74-106); Potassium 3.5 mmol/L (3.5-5.1); Protein, Total 8.3 g/dL (6.4-8.2); Sodium Level 139 mmol/L (136-145)
== END ==
LOC: MTLAB 07:55
PROVIDERS: PCP Family Medicine; Referring Provider Internal Medicine Rheumatology; Visit Provider Internal Medicine Rheumatology
DX: L40.59 Other psoriatic arthropathy (principal); L40.8 Other psoriasis; M19.071 Primary osteoarthritis, right ankle and foot; K76.0 Fatty (change of) liver, not elsewhere classified; M21.40 Flat foot [pes planus] (acquired), unspecified foot; M47.897 Other spondylosis, lumbosacral region; M47.892 Other spondylosis, cervical region; R51.9 Headache, unspecified; Z79.899 Other long term (current) drug therapy
CPT/HCPCS: 36415; 80053; 85025

== ENCOUNTER → 2020-02-24 07:41 | Outpatient (CLI) | payer OTHER, SELFPAY ==
[2020-02-24 10:09] LABS: Absolute Lymphocyte Count 3.49 X10^3/uL (0.83-4.51); Absolute Neutrophil Count 5.2 X10^3/uL (2.0-7.7); Basophil% 1.1 % (0-1); Eosinophil# 0.29 X10^3/uL; Eosinophils% 3.1 % (0-5); Hematocrit 42.8 % (37-47); Hemoglobin 13.6 g/dL (12.0-15.0); Lymphocyte # 3.49 X10^3/ul (4.0); Mean Corp Hgb Conc 31.8 g/dL (32-36); Mean Corpuscular Hgb 26.7 pg (27.0-32.0); Mean Corpuscular Volume 83.9 fL (81-99); Mean Platelet Vol. 11.2 fl (6.2-12.0); Monocyte# 0.34 X10^3/uL; Monocyte% 3.6 % (0-10); NRBC Flagged by Analyzer 0 % (0-5); Neutrophil % 55.1 % (47-70); Platelet Count 399 K/mm3 (150-450); RBC Distribution Width CV 13.8 % (11.6-14.6); RBC Distribution Width SD 42.3 fl (35.1-43.9); White Blood Count 9.4 K/mm3 (4.4-11.0)
[2020-02-24 10:29] LABS: ALB/GLOB Ratio 0.8 RATIO (0.9-2.4); AST(SGOT) 35 U/L (15-37); Alanine Aminotransfer ALT/SGPT 65 U/L (13-56); Albumin, Serum 3.5 g/dL (3.2-5.0); Alkaline Phosphatase 87 U/L (45-117); Anion Gap 6 (5-15); BUN 9 mg/dL (7-18); BUN/Creat Ratio 9.7 RATIO (10-20); Chloride 106 mmol/L (98-107); Creatinine, Serum 0.93 mg/dL (0.55-1.02); EST Glomerular Filtration Rate 68 mL/min (>60); Est Glom Filt Rate - Afr Amer 83 mL/min (>60); Globulin 4.6 g/dL (2.2-4.2); Glucose 154 mg/dL (74-106); Potassium 3.7 mmol/L (3.5-5.1); Protein, Total 8.1 g/dL (6.4-8.2); Sodium Level 138 mmol/L (136-145)
== END ==
LOC: MTLAB 07:43
PROVIDERS: PCP Family Medicine; Referring Provider Internal Medicine Rheumatology; Visit Provider Internal Medicine Rheumatology
DX: L40.59 Other psoriatic arthropathy (principal); L40.8 Other psoriasis; M19.071 Primary osteoarthritis, right ankle and foot; K76.0 Fatty (change of) liver, not elsewhere classified; M21.40 Flat foot [pes planus] (acquired), unspecified foot; M47.897 Other spondylosis, lumbosacral region; M47.892 Other spondylosis, cervical region; R51.9 Headache, unspecified
CPT/HCPCS: 36415; 80053; 85025

== ENCOUNTER → 2020-04-09 15:52 | Outpatient (CLI) | payer OTHER, SELFPAY ==
[2020-04-09 18:02] LABS: Absolute Lymphocyte Count 2.46 X10^3/uL (0.83-4.51); Absolute Neutrophil Count 6.2 X10^3/uL (2.0-7.7); Basophil# 0.09 X10^3/uL; Eosinophil# 0.22 X10^3/uL; Eosinophils% 2.3 % (0-5); Hematocrit 42.7 % (37-47); Hemoglobin 13.5 g/dL (12.0-15.0); Lymphocyte # 2.46 X10^3/ul (4.0); Lymphocyte % 26.1 % (19-41); Mean Corp Hgb Conc 31.6 g/dL (32-36); Mean Corpuscular Hgb 26.6 pg (27.0-32.0); Mean Corpuscular Volume 84.1 fL (81-99); Mean Platelet Vol. 11.3 fl (6.2-12.0); Monocyte# 0.44 X10^3/uL; Monocyte% 4.7 % (0-10); NRBC Flagged by Analyzer 0 % (0-5); Neutrophil # 6.18 X10^3/uL (2.7-7.7); Neutrophil % 65.6 % (47-70); Platelet Count 358 K/mm3 (150-450); RBC Distribution Width CV 14.2 % (11.6-14.6); RBC Distribution Width SD 43.7 fl (35.1-43.9); Red Blood Count 5.08 M/mm3 (4.2-5.4); White Blood Count 9.4 K/mm3 (4.4-11.0)
[2020-04-09 18:16] LABS: ALB/GLOB Ratio 0.7 RATIO (0.9-2.4); AST(SGOT) 24 U/L (15-37); Alanine Aminotransfer ALT/SGPT 49 U/L (13-56); Albumin, Serum 3.4 g/dL (3.2-5.0); Alkaline Phosphatase 91 U/L (45-117); Anion Gap 7 (5-15); BUN 14 mg/dL (7-18); BUN/Creat Ratio 12.1 RATIO (10-20); Chloride 104 mmol/L (98-107); Creatinine, Serum 1.16 mg/dL (0.55-1.02); EST Glomerular Filtration Rate 53 mL/min (>60); Est Glom Filt Rate - Afr Amer 64 mL/min (>60); Globulin 4.9 g/dL (2.2-4.2); Glucose 198 mg/dL (74-106); Protein, Total 8.3 g/dL (6.4-8.2); Sodium Level 136 mmol/L (136-145)
== END ==
PROVIDERS: Visit Provider Internal Medicine Rheumatology
DX: L40.59 Other psoriatic arthropathy (principal); L40.8 Other psoriasis; M19.071 Primary osteoarthritis, right ankle and foot; K76.0 Fatty (change of) liver, not elsewhere classified; M21.40 Flat foot [pes planus] (acquired), unspecified foot; M47.897 Other spondylosis, lumbosacral region; M47.892 Other spondylosis, cervical region; R51.9 Headache, unspecified; Z79.899 Other long term (current) drug therapy
CPT/HCPCS: 36415; 80053; 85025

== ENCOUNTER → 2020-06-29 07:58 | Outpatient (CLI) | payer OTHER, SELFPAY ==
[2020-06-29 10:09] LABS: Absolute Lymphocyte Count 4.86 X10^3/uL (0.83-4.51); Absolute Neutrophil Count 6.7 X10^3/uL (2.0-7.7); Basophil# 0.15 X10^3/uL; Basophil% 1.2 % (0-1); Eosinophil# 0.26 X10^3/uL; Eosinophils% 2.1 % (0-5); Hematocrit 42.2 % (37-47); Hemoglobin 13.4 g/dL (12.0-15.0); Lymphocyte # 4.86 X10^3/ul (4.0); Lymphocyte % 38.5 % (19-41); Mean Corp Hgb Conc 31.8 g/dL (32-36); Mean Corpuscular Hgb 27.5 pg (27.0-32.0); Mean Corpuscular Volume 86.5 fL (81-99); Mean Platelet Vol. 10.9 fl (6.2-12.0); Monocyte# 0.65 X10^3/uL; Monocyte% 5.1 % (0-10); NRBC Flagged by Analyzer 0 % (0-5); Neutrophil # 6.67 X10^3/uL (2.7-7.7); Neutrophil % 52.8 % (47-70); Platelet Count 393 K/mm3 (150-450); RBC Distribution Width CV 14.1 % (11.6-14.6); Red Blood Count 4.88 M/mm3 (4.2-5.4); White Blood Count 12.6 K/mm3 (4.4-11.0)
[2020-06-29 10:28] LABS: ALB/GLOB Ratio 0.8 RATIO (0.9-2.4); AST(SGOT) 33 U/L (15-37); Alanine Aminotransfer ALT/SGPT 79 U/L (13-56); Albumin, Serum 3.6 g/dL (3.2-5.0); Alkaline Phosphatase 71 U/L (45-117); Anion Gap 7 (5-15); BUN 18 mg/dL (7-18); Calcium,Total 9.3 mg/dL (8.5-10.1); Chloride 103 mmol/L (98-107); EST Glomerular Filtration Rate 62 mL/min (>60); Est Glom Filt Rate - Afr Amer 76 mL/min (>60); Globulin 4.4 g/dL (2.2-4.2); Glucose 223 mg/dL (74-106); Potassium 3.7 mmol/L (3.5-5.1); Sodium Level 137 mmol/L (136-145)
== END ==
PROVIDERS: PCP Family Medicine; Referring Provider Internal Medicine Rheumatology; Visit Provider Internal Medicine Rheumatology
DX: L40.59 Other psoriatic arthropathy (principal); L40.8 Other psoriasis; M19.071 Primary osteoarthritis, right ankle and foot; K76.0 Fatty (change of) liver, not elsewhere classified; M21.40 Flat foot [pes planus] (acquired), unspecified foot; M47.897 Other spondylosis, lumbosacral region; M47.892 Other spondylosis, cervical region; R51.9 Headache, unspecified; Z79.899 Other long term (current) drug therapy
CPT/HCPCS: 36415; 80053; 85025

== ENCOUNTER → 2020-07-24 16:19 | Outpatient (CLI) | payer OTHER, SELFPAY ==
[2020-07-24 18:12] LABS: AST(SGOT) 14 U/L (15-37); Alanine Aminotransfer ALT/SGPT 37 U/L (13-56); Albumin, Serum 3.5 g/dL (3.2-5.0); Alkaline Phosphatase 69 U/L (45-117); Cholesterol 148 mg/dL (200); Globulin 4.4 g/dL (2.2-4.2); High Density Lipoprotein 49 mg/dL; Protein, Total 7.9 g/dL (6.4-8.2); Triglycerides 107 mg/dL; Very Low Density Lipoprotein 21 mg/dL (5-40)
== END ==
PROVIDERS: PCP Family Medicine; Visit Provider Family Medicine
DX: E11.9 Type 2 diabetes mellitus without complications (principal)
CPT/HCPCS: 36415; 80061; 80076

== ENCOUNTER → 2020-09-11 14:47 | Outpatient (CLI) | payer OTHER, SELFPAY ==
[2020-09-11 17:33] LABS: Absolute Lymphocyte Count 3.67 X10^3/uL (0.83-4.51); Absolute Neutrophil Count 4.4 X10^3/uL (2.0-7.7); Basophil% 1.1 % (0-1); Eosinophils% 3.3 % (0-5); Hematocrit 42.4 % (37-47); Hemoglobin 13.3 g/dL (12.0-15.0); Lymphocyte # 3.67 X10^3/ul (0.83-4.51); Lymphocyte % 40.4 % (19-41); Mean Corp Hgb Conc 31.4 g/dL (32-36); Mean Corpuscular Volume 86.2 fL (81-99); Mean Platelet Vol. 11.3 fl (6.2-12.0); Monocyte# 0.63 X10^3/uL; Monocyte% 6.9 % (0-10); NRBC Flagged by Analyzer 0 % (0-5); Neutrophil # 4.37 X10^3/uL (2.7-7.7); Neutrophil % 48.1 % (47-70); Platelet Count 336 K/mm3 (150-450); RBC Distribution Width CV 12.5 % (11.6-14.6); RBC Distribution Width SD 39.2 fl (35.1-43.9); Red Blood Count 4.92 M/mm3 (4.2-5.4); White Blood Count 9.1 K/mm3 (4.4-11.0)
[2020-09-11 18:13] LABS: ALB/GLOB Ratio 0.8 RATIO (0.9-2.4); AST(SGOT) 28 U/L (15-37); Alanine Aminotransfer ALT/SGPT 55 U/L (13-56); Albumin, Serum 3.4 g/dL (3.2-5.0); Alkaline Phosphatase 68 U/L (45-117); Anion Gap 9 (5-15); BUN 10 mg/dL (7-18); BUN/Creat Ratio 9.6 RATIO (10-20); Calcium,Total 9.2 mg/dL (8.5-10.1); Chloride 103 mmol/L (98-107); Creatinine, Serum 1.04 mg/dL (0.55-1.02); EST Glomerular Filtration Rate 60 mL/min (>60); Est Glom Filt Rate - Afr Amer 72 mL/min (>60); Globulin 4.3 g/dL (2.2-4.2); Glucose 256 mg/dL (74-106); Potassium 3.9 mmol/L (3.5-5.1); Protein, Total 7.7 g/dL (6.4-8.2); Sodium Level 138 mmol/L (136-145)
== END ==
LOC: MTLAB 14:50
PROVIDERS: PCP Family Medicine; Referring Provider Internal Medicine Rheumatology; Visit Provider Internal Medicine Rheumatology
DX: L40.59 Other psoriatic arthropathy (principal); L40.8 Other psoriasis; M19.071 Primary osteoarthritis, right ankle and foot; K76.0 Fatty (change of) liver, not elsewhere classified; M21.40 Flat foot [pes planus] (acquired), unspecified foot; M47.897 Other spondylosis, lumbosacral region; M47.892 Other spondylosis, cervical region; R51.9 Headache, unspecified; Z79.899 Other long term (current) drug therapy
CPT/HCPCS: 36415; 80053; 85025

== ENCOUNTER → 2020-12-09 14:11 | Outpatient (CLI) | payer OTHER, SELFPAY ==
[2020-12-09 15:20] LABS: Absolute Lymphocyte Count 2.14 X10^3/uL (0.83-4.51); Absolute Neutrophil Count 4.6 X10^3/uL (2.0-7.7); Basophil# 0.06 X10^3/uL; Basophil% 0.8 % (0-1); Eosinophil# 0.17 X10^3/uL; Eosinophils% 2.3 % (0-5); Hematocrit 41.6 % (37-47); Hemoglobin 13.3 g/dL (12.0-15.0); Lymphocyte # 2.14 X10^3/ul (0.83-4.51); Mean Corpuscular Hgb 26.6 pg (27.0-32.0); Mean Corpuscular Volume 83.2 fL (81-99); Mean Platelet Vol. 11.4 fl (6.2-12.0); Monocyte# 0.41 X10^3/uL; Monocyte% 5.6 % (0-10); NRBC Flagged by Analyzer 0 % (0-5); Neutrophil # 4.57 X10^3/uL (2.7-7.7); Neutrophil % 61.9 % (47-70); Platelet Count 353 K/mm3 (150-450); RBC Distribution Width CV 12.5 % (11.6-14.6); RBC Distribution Width SD 37.7 fl (35.1-43.9); White Blood Count 7.4 K/mm3 (4.4-11.0)
[2020-12-09 15:58] LABS: ALB/GLOB Ratio 0.6 RATIO (0.9-2.4); AST(SGOT) 20 U/L (15-37); Alanine Aminotransfer ALT/SGPT 41 U/L (13-56); Albumin, Serum 3.1 g/dL (3.2-5.0); Alkaline Phosphatase 63 U/L (45-117); Anion Gap 5 (5-15); BUN 10 mg/dL (7-18); BUN/Creat Ratio 11.5 RATIO (10-20); Chloride 107 mmol/L (98-107); Creatinine, Serum 0.87 mg/dL (0.55-1.02); EST Glomerular Filtration Rate 73 mL/min (>60); Est Glom Filt Rate - Afr Amer 89 mL/min (>60); Globulin 4.9 g/dL (2.2-4.2); Glucose 275 mg/dL (74-106); Potassium 4.2 mmol/L (3.5-5.1); Sodium Level 138 mmol/L (136-145)
== END ==
LOC: MTLAB 14:15
PROVIDERS: PCP Family Medicine; Referring Provider Internal Medicine Rheumatology; Visit Provider Internal Medicine Rheumatology
DX: L40.59 Other psoriatic arthropathy (principal); L40.8 Other psoriasis; M19.071 Primary osteoarthritis, right ankle and foot; K76.0 Fatty (change of) liver, not elsewhere classified; M21.40 Flat foot [pes planus] (acquired), unspecified foot; M47.897 Other spondylosis, lumbosacral region; M47.892 Other spondylosis, cervical region; R51.9 Headache, unspecified; Z79.899 Other long term (current) drug therapy
CPT/HCPCS: 36415; 80053; 85025

== ENCOUNTER → 2021-03-09 15:42 | Outpatient (CLI) | payer OTHER, SELFPAY ==
[2021-03-09 17:59] LABS: Absolute Lymphocyte Count 2.76 X10^3/uL (0.83-4.51); Absolute Neutrophil Count 6.7 X10^3/uL (2.0-7.7); Basophil# 0.08 X10^3/uL; Basophil% 0.8 % (0-1); Eosinophil# 0.05 X10^3/uL; Eosinophils% 0.5 % (0-5); Hematocrit 40.8 % (37-47); Hemoglobin 13.2 g/dL (12.0-15.0); Lymphocyte # 2.76 X10^3/ul (0.83-4.51); Lymphocyte % 27.3 % (19-41); Mean Corp Hgb Conc 32.4 g/dL (32-36); Mean Corpuscular Hgb 26.8 pg (27.0-32.0); Mean Corpuscular Volume 82.9 fL (81-99); Mean Platelet Vol. 11.6 fl (6.2-12.0); Monocyte# 0.47 X10^3/uL; Monocyte% 4.6 % (0-10); NRBC Flagged by Analyzer 0 % (0-5); Neutrophil # 6.71 X10^3/uL (2.7-7.7); Neutrophil % 66.3 % (47-70); Platelet Count 360 K/mm3 (150-450); RBC Distribution Width CV 13.2 % (11.6-14.6); RBC Distribution Width SD 40.1 fl (35.1-43.9); Red Blood Count 4.92 M/mm3 (4.2-5.4); White Blood Count 10.1 K/mm3 (4.4-11.0)
[2021-03-09 18:39] LABS: ALB/GLOB Ratio 0.8 RATIO (0.9-2.4); AST(SGOT) 15 U/L (15-37); Alanine Aminotransfer ALT/SGPT 35 U/L (13-56); Albumin, Serum 3.4 g/dL (3.2-5.0); Alkaline Phosphatase 57 U/L (45-117); Anion Gap 9 (5-15); BUN 13 mg/dL (7-18); BUN/Creat Ratio 13.8 RATIO (10-20); Chloride 104 mmol/L (98-107); Creatinine, Serum 0.94 mg/dL (0.55-1.02); EST Glomerular Filtration Rate 66 mL/min (>60); Est Glom Filt Rate - Afr Amer 80 mL/min (>60); Globulin 4.5 g/dL (2.2-4.2); Glucose 257 mg/dL (74-106); Potassium 4.1 mmol/L (3.5-5.1); Protein, Total 7.9 g/dL (6.4-8.2); Sodium Level 137 mmol/L (136-145)
== END ==
LOC: MTLAB 15:44
PROVIDERS: PCP Family Medicine; Referring Provider Internal Medicine Rheumatology; Visit Provider Internal Medicine Rheumatology
DX: L40.59 Other psoriatic arthropathy (principal); L40.8 Other psoriasis; M19.071 Primary osteoarthritis, right ankle and foot; M21.40 Flat foot [pes planus] (acquired), unspecified foot; M47.897 Other spondylosis, lumbosacral region; M47.892 Other spondylosis, cervical region; R51.9 Headache, unspecified; Z79.899 Other long term (current) drug therapy
CPT/HCPCS: 36415; 80053; 85025

== ENCOUNTER 2021-06-30 14:45 | Outpatient (CLI) | payer OTHER, SELFPAY ==
[2021-06-30 17:55] LABS: AST(SGOT) 45 U/L (15-37); Alanine Aminotransfer ALT/SGPT 72 U/L (13-56); Albumin, Serum 3.6 g/dL (3.2-5.0); Alkaline Phosphatase 67 U/L (45-117); Bilirubin, Direct 0.09 mg/dL (0.00-0.30); Cholesterol 194 mg/dL (200); Globulin 4.1 g/dL (2.2-4.2); High Density Lipoprotein 42 mg/dL; Protein, Total 7.7 g/dL (6.4-8.2); Triglycerides 189 mg/dL; Very Low Density Lipoprotein 38 mg/dL (5-40)
== END 2021-06-30 23:59 | disposition home or self-care (01) ==
LOC: MFPLAB 14:46
PROVIDERS: PCP Family Medicine; Referring Provider Family Medicine; Visit Provider Family Medicine
DX: E11.9 Type 2 diabetes mellitus without complications (principal)
CPT/HCPCS: 36415; 80061; 80076

== ENCOUNTER 2021-07-08 15:39 | Outpatient (CLI) | payer OTHER, SELFPAY ==
[2021-07-08 17:36] LABS: Absolute Lymphocyte Count 4.17 X10^3/uL (0.83-4.51); Absolute Neutrophil Count 4.7 X10^3/uL (2.0-7.7); Basophil# 0.13 X10^3/uL; Basophil% 1.3 % (0-1); Eosinophil# 0.18 X10^3/uL; Eosinophils% 1.9 % (0-5); Hematocrit 40.9 % (37-47); Hemoglobin 13.2 g/dL (12.0-15.0); Lymphocyte # 4.17 X10^3/ul (0.83-4.51); Mean Corp Hgb Conc 32.3 g/dL (32-36); Mean Corpuscular Hgb 26.9 pg (27.0-32.0); Mean Corpuscular Volume 83.5 fL (81-99); Mean Platelet Vol. 11.2 fl (6.2-12.0); Monocyte# 0.53 X10^3/uL; Monocyte% 5.5 % (0-10); NRBC Flagged by Analyzer 0 % (0-5); Neutrophil # 4.65 X10^3/uL (2.7-7.7); Neutrophil % 47.9 % (47-70); POSITIVE MORPHOLOGY YES; Platelet Count 331 K/mm3 (150-450); RBC Distribution Width CV 12.6 % (11.6-14.6); RBC Distribution Width SD 38.2 fl (35.1-43.9); White Blood Count 9.7 K/mm3 (4.4-11.0)
[2021-07-08 17:44] LABS: Differential Indicated SCAN CRITERIA MET
[2021-07-08 17:54] LABS: ALB/GLOB Ratio 0.8 RATIO (0.9-2.4); AST(SGOT) 35 U/L (15-37); Alanine Aminotransfer ALT/SGPT 85 U/L (13-56); Albumin, Serum 3.4 g/dL (3.2-5.0); Alkaline Phosphatase 64 U/L (45-117); Anion Gap 6 (5-15); BUN 12 mg/dL (7-18); BUN/Creat Ratio 11.3 RATIO (10-20); Calcium,Total 8.8 mg/dL (8.5-10.1); Chloride 104 mmol/L (98-107); Creatinine, Serum 1.06 mg/dL (0.55-1.02); EST Glomerular Filtration Rate 58 mL/min (>60); Est Glom Filt Rate - Afr Amer 70 mL/min (>60); Globulin 4.2 g/dL (2.2-4.2); Glucose 280 mg/dL (74-106); Potassium 3.9 mmol/L (3.5-5.1); Protein, Total 7.6 g/dL (6.4-8.2); Sodium Level 134 mmol/L (136-145)
[2021-07-08 18:17] LABS: Differential Comment SCANNED
== END 2021-07-08 23:59 | disposition home or self-care (01) ==
PROVIDERS: PCP Family Medicine; Referring Provider Internal Medicine Rheumatology; Visit Provider Internal Medicine Rheumatology
DX: L40.59 Other psoriatic arthropathy (principal); L40.8 Other psoriasis; M19.071 Primary osteoarthritis, right ankle and foot; K76.0 Fatty (change of) liver, not elsewhere classified; M21.40 Flat foot [pes planus] (acquired), unspecified foot; M47.897 Other spondylosis, lumbosacral region; M47.892 Other spondylosis, cervical region; R51.9 Headache, unspecified; Z79.899 Other long term (current) drug therapy
CPT/HCPCS: 36415; 80053; 85025

== ENCOUNTER → 2021-09-15 | Outpatient (CLI) | payer OTHER, SELFPAY ==
--- NOTE | 2021-09-15 10:50 | NEURO ---
NCS and/or EMG Patient Report Ordering Doctor: Nancy Arellano DATE OF SERVICE: 09/15/21 Andie presents for electrodiagnostic testing of the lower limbs. She reports numbness and tingling in the feet for several years, worse over the past 6 months. Electrodiagnostic findings: Peroneal motor nerve demonstrates normal distal latency and amplitude with borderline reduced conduction velocity. Left tibial motor response is within normal limits. Right tibial conduction velocity is borderline reduced. Borderline prolonged right tibial F wave. Absent right sural and right superficial peroneal responses. Absent plantar responses bilaterally. On needle EMG, all muscles tested in the lower limbs showed no evidence of denervation with normal motor unit action potentials. Electrodiagnostic impression: This is an abnormal study in the lower limbs 1. Electrodiagnostic findings suggestive of peripheral polyneuropathy, sensory greater than motor. Findings are mild to moderate in nature. 2. No electrodiagnostic evidence is noted for lumbosacral radiculopathy.
== END | disposition home or self-care (01) ==
LOC: PSN 06:21
PROVIDERS: PCP Family Medicine; Visit Provider Family Medicine
DX: G62.9 Polyneuropathy, unspecified (principal)
CPT/HCPCS: 95886; 95912

== ENCOUNTER → 2021-11-05 | Outpatient (CLI) | payer OTHER, SELFPAY ==
[2021-11-05 10:09] LABS: Basophil# 0.12 X10^3/uL; Basophil% 1.4 % (0-1); Eosinophil# 0.32 X10^3/uL; Eosinophils% 3.6 % (0-5); Hematocrit 42.8 % (37-47); Hemoglobin 13.9 g/dL (12.0-15.0); Lymphocyte % 31.7 % (19-41); Mean Corp Hgb Conc 32.5 g/dL (32-36); Mean Corpuscular Volume 83.3 fL (81-99); Monocyte# 0.53 X10^3/uL; NRBC Flagged by Analyzer 0 % (0-5); Neutrophil # 5.04 X10^3/uL (2.7-7.7); Platelet Count 360 K/mm3 (150-450); RBC Distribution Width CV 13.2 % (11.6-14.6); RBC Distribution Width SD 40.1 fl (35.1-43.9); Red Blood Count 5.14 M/mm3 (4.2-5.4); White Blood Count 8.8 K/mm3 (4.4-11.0)
[2021-11-05 10:36] LABS: ALB/GLOB Ratio 0.8 RATIO (0.9-2.4); AST(SGOT) 25 U/L (15-37); Alanine Aminotransfer ALT/SGPT 46 U/L (13-56); Albumin, Serum 3.5 g/dL (3.2-5.0); Alkaline Phosphatase 61 U/L (45-117); Anion Gap 6 (5-15); BUN 9 mg/dL (7-18); BUN/Creat Ratio 10.4 RATIO (10-20); Chloride 105 mmol/L (98-107); Creatinine, Serum 0.87 mg/dL (0.55-1.02); EST Glomerular Filtration Rate 73 mL/min (>60); Est Glom Filt Rate - Afr Amer 88 mL/min (>60); Globulin 4.3 g/dL (2.2-4.2); Glucose 160 mg/dL (74-106); Potassium 4.2 mmol/L (3.5-5.1); Protein, Total 7.8 g/dL (6.4-8.2); Sodium Level 137 mmol/L (136-145)
== END | disposition home or self-care (01) ==
PROVIDERS: PCP Family Medicine; Referring Provider Internal Medicine Rheumatology; Visit Provider Internal Medicine Rheumatology
DX: L40.59 Other psoriatic arthropathy (principal); L40.8 Other psoriasis; M19.071 Primary osteoarthritis, right ankle and foot; K76.0 Fatty (change of) liver, not elsewhere classified; M21.40 Flat foot [pes planus] (acquired), unspecified foot; M47.897 Other spondylosis, lumbosacral region; M47.892 Other spondylosis, cervical region; R51.9 Headache, unspecified; Z79.899 Other long term (current) drug therapy
CPT/HCPCS: 36415; 80053; 85025

== ENCOUNTER → 2022-03-02 | Outpatient (CLI) | payer OTHER, SELFPAY ==
[2022-03-02 17:55] LABS: Absolute Lymphocyte Count 4.16 X10^3/uL (0.83-4.51); Absolute Neutrophil Count 5.9 X10^3/uL (2.0-7.7); Basophil# 0.09 X10^3/uL; Basophil% 0.8 % (0-1); Eosinophil# 0.36 X10^3/uL; Eosinophils% 3.2 % (0-5); Hematocrit 41.4 % (37-47); Hemoglobin 13.1 g/dL (12.0-15.0); Lymphocyte # 4.16 X10^3/ul (0.83-4.51); Lymphocyte % 37.4 % (19-41); Mean Corp Hgb Conc 31.6 g/dL (32-36); Mean Corpuscular Hgb 26.9 pg (27.0-32.0); Mean Platelet Vol. 10.9 fl (6.2-12.0); Monocyte# 0.62 X10^3/uL; Monocyte% 5.6 % (0-10); NRBC Flagged by Analyzer 0 % (0-5); Neutrophil # 5.85 X10^3/uL (2.7-7.7); Neutrophil % 52.6 % (47-70); Platelet Count 363 K/mm3 (150-450); RBC Distribution Width CV 12.9 % (11.6-14.6); RBC Distribution Width SD 39.8 fl (35.1-43.9); Red Blood Count 4.87 M/mm3 (4.2-5.4); White Blood Count 11.1 K/mm3 (4.4-11.0)
[2022-03-02 18:14] LABS: ALB/GLOB Ratio 0.9 RATIO (0.9-2.4); AST(SGOT) 18 U/L (15-37); Alanine Aminotransfer ALT/SGPT 40 U/L (13-56); Albumin, Serum 3.3 g/dL (3.2-5.0); Alkaline Phosphatase 70 U/L (45-117); Anion Gap 6 (5-15); BUN 19 mg/dL (7-18); BUN/Creat Ratio 23.8 RATIO (10-20); Calcium,Total 9.2 mg/dL (8.5-10.1); Chloride 101 mmol/L (98-107); EST Glomerular Filtration Rate 80 mL/min (>60); Est Glom Filt Rate - Afr Amer 97 mL/min (>60); Globulin 3.8 g/dL (2.2-4.2); Glucose 165 mg/dL (74-106); Potassium 3.9 mmol/L (3.5-5.1); Protein, Total 7.1 g/dL (6.4-8.2); Sodium Level 137 mmol/L (136-145)
== END | disposition home or self-care (01) ==
LOC: MTLAB 16:02
PROVIDERS: PCP Family Medicine; Referring Provider Internal Medicine Rheumatology; Visit Provider Internal Medicine Rheumatology
DX: L40.59 Other psoriatic arthropathy (principal); L40.8 Other psoriasis; M19.071 Primary osteoarthritis, right ankle and foot; K76.0 Fatty (change of) liver, not elsewhere classified; M21.40 Flat foot [pes planus] (acquired), unspecified foot; M47.897 Other spondylosis, lumbosacral region; M47.892 Other spondylosis, cervical region; R51.9 Headache, unspecified; Z79.899 Other long term (current) drug therapy
CPT/HCPCS: 36415; 80053; 85025

== ENCOUNTER → 2022-06-27 | Outpatient (CLI) | payer OTHER, SELFPAY ==
[2022-06-27 17:54] LABS: Absolute Lymphocyte Count 4.09 X10^3/uL (0.83-4.51); Absolute Neutrophil Count 6.6 X10^3/uL (2.0-7.7); Basophil# 0.14 X10^3/uL; Basophil% 1.2 % (0-1); Eosinophil# 0.16 X10^3/uL; Eosinophils% 1.4 % (0-5); Hematocrit 45.4 % (37-47); Hemoglobin 14.8 g/dL (12.0-15.0); Lymphocyte # 4.09 X10^3/ul (0.83-4.51); Lymphocyte % 34.8 % (19-41); Mean Corp Hgb Conc 32.6 g/dL (32-36); Mean Corpuscular Hgb 26.6 pg (27.0-32.0); Mean Corpuscular Volume 81.7 fL (81-99); Mean Platelet Vol. 11.1 fl (6.2-12.0); Monocyte# 0.69 X10^3/uL; Monocyte% 5.9 % (0-10); NRBC Flagged by Analyzer 0 % (0-5); Neutrophil # 6.61 X10^3/uL (2.7-7.7); Neutrophil % 56.2 % (47-70); Platelet Count 404 K/mm3 (150-450); RBC Distribution Width CV 12.9 % (11.6-14.6); RBC Distribution Width SD 37.8 fl (35.1-43.9); Red Blood Count 5.56 M/mm3 (4.2-5.4); White Blood Count 11.8 K/mm3 (4.4-11.0)
[2022-06-27 18:52] LABS: ALB/GLOB Ratio 0.8 RATIO (0.9-2.4); AST(SGOT) 72 U/L (15-37); Alanine Aminotransfer ALT/SGPT 126 U/L (13-56); Albumin, Serum 3.6 g/dL (3.2-5.0); Alkaline Phosphatase 77 U/L (45-117); Anion Gap 10 (5-15); BUN 17 mg/dL (7-18); Calcium,Total 9.8 mg/dL (8.5-10.1); Chloride 101 mmol/L (98-107); Creatinine, Serum 1.06 mg/dL (0.55-1.02); EST Glomerular Filtration Rate 58 mL/min (>60); Est Glom Filt Rate - Afr Amer 70 mL/min (>60); Globulin 4.8 g/dL (2.2-4.2); Glucose 322 mg/dL (74-106); Potassium 4.4 mmol/L (3.5-5.1); Protein, Total 8.4 g/dL (6.4-8.2); Sodium Level 133 mmol/L (136-145)
== END | disposition home or self-care (01) ==
PROVIDERS: PCP Family Medicine; Visit Provider Internal Medicine Rheumatology
DX: L40.59 Other psoriatic arthropathy (principal); L40.8 Other psoriasis; K76.0 Fatty (change of) liver, not elsewhere classified; Z79.899 Other long term (current) drug therapy
CPT/HCPCS: 36415; 80053; 85025

== ENCOUNTER → 2022-07-19 | Outpatient (CLI) | payer OTHER, SELFPAY ==
[2022-07-19 10:15] LABS: Hematocrit 47.4 % (37-47); Hemoglobin 15.4 g/dL (12.0-15.0); Mean Corp Hgb Conc 32.5 g/dL (32-36); Mean Corpuscular Hgb 26.3 pg (27.0-32.0); Mean Platelet Vol. 11.1 fl (6.2-12.0); Platelet Count 357 K/mm3 (150-450); RBC Distribution Width CV 13.1 % (11.6-14.6); RBC Distribution Width SD 38.4 fl (35.1-43.9); Red Blood Count 5.85 M/mm3 (4.2-5.4); White Blood Count 15.5 K/mm3 (4.4-11.0)
[2022-07-19 10:48] LABS: Vitamin B12 1399 pg/mL (211-911)
[2022-07-19 10:54] LABS: Hemoglobin A1c 10.3 % (3.8-5.6)
[2022-07-19 11:27] LABS: ALB/GLOB Ratio 0.8 RATIO (0.9-2.4); AST(SGOT) 81 U/L (15-37); Alanine Aminotransfer ALT/SGPT 142 U/L (13-56); Albumin, Serum 3.5 g/dL (3.2-5.0); Alkaline Phosphatase 60 U/L (45-117); Anion Gap 8 (5-15); BUN 21 mg/dL (7-18); Chloride 102 mmol/L (98-107); Cholesterol 165 mg/dL (200); EST Glomerular Filtration Rate 62 mL/min (>60); Est Glom Filt Rate - Afr Amer 75 mL/min (>60); Globulin 4.5 g/dL (2.2-4.2); Glucose 224 mg/dL (74-106); High Density Lipoprotein 61 mg/dL; Potassium 3.8 mmol/L (3.5-5.1); Sodium Level 133 mmol/L (136-145); Thyroid Stim Hormone (TSH) 1.98 uIU/mL (0.358-3.74); Triglycerides 167 mg/dL; Very Low Density Lipoprotein 33 mg/dL (5-40)
[2022-07-21 14:08] LABS: Free Kappa Light Chains 23.1 mg/L (3.3-19.4); Free Lambda Light Chains 21.1 mg/L (5.7-26.3); Vitamin B1, Thiamine 268.5 nmol/L (66.5-200.0)
== END | disposition home or self-care (01) ==
PROVIDERS: PCP Family Medicine; Referring Provider Psychiatry & Neurology Neurology; Visit Provider Psychiatry & Neurology Neurology
DX: G62.9 Polyneuropathy, unspecified (principal); E11.42 Type 2 diabetes mellitus with diabetic polyneuropathy
CPT/HCPCS: 36415; 80053; 80061; 82607; 82746; 83036; 83883; 84425; 84443; 85027

== ENCOUNTER → 2022-09-23 | Outpatient (CLI) | payer OTHER, SELFPAY ==
[2022-09-23 10:15] LABS: Absolute Lymphocyte Count 3.82 X10^3/uL (0.83-4.51); Absolute Neutrophil Count 5.9 X10^3/uL (2.0-7.7); Basophil# 0.11 X10^3/uL; Eosinophil# 0.24 X10^3/uL; Eosinophils% 2.2 % (0-5); Hematocrit 40.8 % (37-47); Hemoglobin 12.9 g/dL (12.0-15.0); Lymphocyte # 3.82 X10^3/ul (0.83-4.51); Lymphocyte % 35.5 % (19-41); Mean Corp Hgb Conc 31.6 g/dL (32-36); Mean Corpuscular Hgb 26.3 pg (27.0-32.0); Mean Corpuscular Volume 83.3 fL (81-99); Mean Platelet Vol. 10.9 fl (6.2-12.0); Monocyte# 0.69 X10^3/uL; Monocyte% 6.4 % (0-10); NRBC Flagged by Analyzer 0 % (0-5); Neutrophil # 5.85 X10^3/uL (2.7-7.7); Neutrophil % 54.4 % (47-70); Platelet Count 350 K/mm3 (150-450); RBC Distribution Width CV 13.2 % (11.6-14.6); RBC Distribution Width SD 39.3 fl (35.1-43.9); White Blood Count 10.8 K/mm3 (4.4-11.0)
[2022-09-23 10:33] LABS: ALB/GLOB Ratio 0.8 RATIO (0.9-2.4); AST(SGOT) 32 U/L (15-37); Alanine Aminotransfer ALT/SGPT 61 U/L (13-56); Albumin, Serum 3.1 g/dL (3.2-5.0); Alkaline Phosphatase 53 U/L (45-117); Anion Gap 7 (5-15); BUN 13 mg/dL (7-18); BUN/Creat Ratio 15.8 RATIO (10-20); Calcium,Total 8.7 mg/dL (8.5-10.1); Chloride 106 mmol/L (98-107); Creatinine, Serum 0.82 mg/dL (0.55-1.02); EST Glomerular Filtration Rate 78 mL/min (>60); Est Glom Filt Rate - Afr Amer 94 mL/min (>60); Globulin 4.1 g/dL (2.2-4.2); Glucose 219 mg/dL (74-106); Potassium 3.8 mmol/L (3.5-5.1); Protein, Total 7.2 g/dL (6.4-8.2); Sodium Level 137 mmol/L (136-145)
== END | disposition home or self-care (01) ==
LOC: MTLAB 08:11
PROVIDERS: PCP Family Medicine; Referring Provider Internal Medicine Rheumatology; Visit Provider Internal Medicine Rheumatology
DX: L40.59 Other psoriatic arthropathy (principal); Z79.899 Other long term (current) drug therapy
CPT/HCPCS: 36415; 80053; 85025

== ENCOUNTER → 2022-11-17 | Outpatient (CLI) | payer OTHER, SELFPAY ==
[2022-11-21 17:07] LABS: Albumin 3.6 g/dL (2.9-4.4); Alpha-1-Globulins 0.2 g/dL (0.0-0.4); Alpha-2-Globulins 0.9 g/dL (0.4-1.0); Gamma Globulin 1.1 g/dL (0.4-1.8); Immunoglobulin A 365 mg/dL (87-352); Immunoglobulin G 1155 mg/dL (586-1602); Immunoglobulin M 193 mg/dL (26-217); PROEL- TOTAL PROTEIN 7.1 g/dL (6.0-8.5)
== END | disposition home or self-care (01) ==
LOC: MTLAB 09:09
PROVIDERS: PCP Family Medicine; Visit Provider Psychiatry & Neurology Neurology
DX: G62.9 Polyneuropathy, unspecified (principal)
CPT/HCPCS: 36415; 82784; 84165; 86334; 86335

== ENCOUNTER → 2022-12-20 | Outpatient (CLI) | payer OTHER, SELFPAY ==
[2022-12-20 17:48] LABS: Absolute Lymphocyte Count 4.17 X10^3/uL (0.83-4.51); Absolute Neutrophil Count 5.7 X10^3/uL (2.0-7.7); Basophil# 0.11 X10^3/uL; Eosinophil# 0.26 X10^3/uL; Eosinophils% 2.4 % (0-5); Hematocrit 42.8 % (37-47); Hemoglobin 13.6 g/dL (12.0-15.0); Lymphocyte # 4.17 X10^3/ul (0.83-4.51); Lymphocyte % 38.9 % (19-41); Mean Corp Hgb Conc 31.8 g/dL (32-36); Mean Corpuscular Hgb 26.7 pg (27.0-32.0); Mean Corpuscular Volume 84.1 fL (81-99); Monocyte% 4.7 % (0-10); NRBC Flagged by Analyzer 0 % (0-5); Neutrophil # 5.66 X10^3/uL (2.7-7.7); Neutrophil % 52.8 % (47-70); Platelet Count 352 K/mm3 (150-450); RBC Distribution Width CV 13.3 % (11.6-14.6); RBC Distribution Width SD 41.2 fl (35.1-43.9); Red Blood Count 5.09 M/mm3 (4.2-5.4); White Blood Count 10.7 K/mm3 (4.4-11.0)
[2022-12-20 18:31] LABS: ALB/GLOB Ratio 0.9 RATIO (0.9-2.4); AST(SGOT) 27 U/L (15-37); Alanine Aminotransfer ALT/SGPT 54 U/L (13-56); Albumin, Serum 3.7 g/dL (3.2-5.0); Alkaline Phosphatase 59 U/L (45-117); Anion Gap 7 (5-15); BUN 13 mg/dL (7-18); BUN/Creat Ratio 14.3 RATIO (10-20); Calcium,Total 9.7 mg/dL (8.5-10.1); Chloride 102 mmol/L (98-107); Creatinine, Serum 0.91 mg/dL (0.55-1.02); EST Glomerular Filtration Rate 69 mL/min (>60); Est Glom Filt Rate - Afr Amer 83 mL/min (>60); Globulin 4.3 g/dL (2.2-4.2); Glucose 139 mg/dL (74-106); Potassium 3.8 mmol/L (3.5-5.1); Sodium Level 138 mmol/L (136-145)
== END | disposition home or self-care (01) ==
LOC: MTLAB 15:28
PROVIDERS: PCP Family Medicine; Referring Provider Internal Medicine Rheumatology; Visit Provider Internal Medicine Rheumatology
DX: L40.59 Other psoriatic arthropathy (principal); L40.8 Other psoriasis; K76.0 Fatty (change of) liver, not elsewhere classified; Z79.899 Other long term (current) drug therapy
CPT/HCPCS: 36415; 80053; 85025

== ENCOUNTER → 2023-03-15 | Outpatient (CLI) | payer OTHER, SELFPAY ==
[2023-03-15 10:19] LABS: Absolute Lymphocyte Count 2.37 X10^3/uL (0.83-4.51); Absolute Neutrophil Count 7.4 X10^3/uL (2.0-7.7); Basophil# 0.12 X10^3/uL; Basophil% 1.1 % (0-1); Eosinophil# 0.19 X10^3/uL; Eosinophils% 1.7 % (0-5); Hematocrit 43.1 % (37-47); Hemoglobin 13.3 g/dL (12.0-15.0); Lymphocyte # 2.37 X10^3/ul (0.83-4.51); Lymphocyte % 21.6 % (19-41); Mean Corp Hgb Conc 30.9 g/dL (32-36); Mean Corpuscular Hgb 25.9 pg (27.0-32.0); Mean Corpuscular Volume 83.9 fL (81-99); Mean Platelet Vol. 10.8 fl (6.2-12.0); Monocyte# 0.84 X10^3/uL; Monocyte% 7.7 % (0-10); NRBC Flagged by Analyzer 0 % (0-5); Neutrophil # 7.42 X10^3/uL (2.7-7.7); Neutrophil % 67.5 % (47-70); Platelet Count 315 K/mm3 (150-450); RBC Distribution Width CV 12.7 % (11.6-14.6); Red Blood Count 5.14 M/mm3 (4.2-5.4)
[2023-03-15 11:39] LABS: ALB/GLOB Ratio 0.7 RATIO (0.9-2.4); AST(SGOT) 20 U/L (15-37); Alanine Aminotransfer ALT/SGPT 29 U/L (13-56); Albumin, Serum 3.4 g/dL (3.2-5.0); Alkaline Phosphatase 67 U/L (45-117); Anion Gap 8 (5-15); BUN 10 mg/dL (7-18); BUN/Creat Ratio 11.5 RATIO (10-20); Calcium,Total 8.6 mg/dL (8.5-10.1); Chloride 104 mmol/L (98-107); Creatinine, Serum 0.87 mg/dL (0.55-1.02); EST Glomerular Filtration Rate 73 mL/min (>60); Est Glom Filt Rate - Afr Amer 88 mL/min (>60); Globulin 4.6 g/dL (2.2-4.2); Glucose 146 mg/dL (74-106); Potassium 4.1 mmol/L (3.5-5.1); Sodium Level 137 mmol/L (136-145)
== END | disposition home or self-care (01) ==
PROVIDERS: PCP Family Medicine; Referring Provider Internal Medicine Rheumatology; Visit Provider Internal Medicine Rheumatology
DX: L40.59 Other psoriatic arthropathy (principal); L40.8 Other psoriasis; M19.071 Primary osteoarthritis, right ankle and foot; Z79.899 Other long term (current) drug therapy
CPT/HCPCS: 36415; 80053; 85025

== ENCOUNTER → 2023-06-26 | Outpatient (CLI) | payer BC, SELFPAY ==
[2023-06-26 11:31] LABS: Hepatitis B Surface Antibody Non-Reactive; Hepatitis B Surface Antigen Non-Reactive (Nonreactive); Hepatitis C Antibody Non-Reactive (Nonreactive)
[2023-06-28 19:07] LABS: HCV Quant. RNA PCR HCV Not Detected IU/mL (.); Hepatitis B Core Ab Total Negative (Negative); QNTFERON TB Mitogen Value > 10.00 IU/mL (.); QNTFERON TB Nil Value 0 IU/mL (.); QNTFERON TB1+ Ag Value 0 IU/mL (.); QNTFERON TB2+ Ag Value 0.01 IU/mL (.); QNTIFERON TB Positive Criteria Negative (Negative)
== END | disposition home or self-care (01) ==
PROVIDERS: PCP Family Medicine
DX: L40.0 Psoriasis vulgaris (principal)
CPT/HCPCS: 36415; 86480; 86704; 86706; 86803; 87340; 87522

== ENCOUNTER → 2023-07-31 | Outpatient (CLI) | payer BC, SELFPAY | END | disposition home or self-care (01) | PROVIDERS: PCP Family Medicine; Visit Provider Family Medicine | DX: Z12.4 Encounter for screening for malignant neoplasm of cervix (principal) | CPT/HCPCS: 88175; G0145 ==

== ENCOUNTER → 2023-09-07 | Outpatient (CLI) | payer BC, SELFPAY ==
--- NOTE | 2023-09-07 15:06 | BI_ITS ---
MAMMOGRAPHY - BILATERAL SCREENING REASON FOR EXAM: Female, 53 years old. Routine annual screening examination. PERTINENT HISTORY: Non-contributory. TECHNIQUE: Digital bilateral breast darian (3D mammographic acquisition) in the CC and MLO projections. 2-D mediolateral oblique (MLO) and craniocaudad (CC) views of both breasts were obtained. CAD: Full Field Digital Mammography with Computer Added Detection was performed. COMPARISON: Comparison is made with prior study January 25, 2019 and April 28, 2015. FINDINGS: Breast Composition: There are scattered areas of fibroglandular density. There are no dominant masses or suspicious calcifications. Fat-containing left axillary lymph nodes. No other significant abnormalities are identified. There has been no significant change since the prior study. BI/SCRN MAMM (CAD)W/DARIAN BILAT IMPRESSION: Stable bilateral screening mammogram. Yearly follow-up mammogram recommended. (A) ASSESSMENT CATEGORY: BIRADS Category 2: Benign. A letter regarding these results will be sent to the patient by the facility within 30 days. Approximately 10% of breast cancers are not detected by mammography. A normal mammogram should not delay biopsy of a clinically suspicious abnormality. [id number] Electronically Signed: Dominik Ivey MD at 8:28 EDT ,
[2023-09-07 18:10] LABS: Absolute Lymphocyte Count 2.48 X10^3/uL (0.83-4.51); Absolute Neutrophil Count 6.1 X10^3/uL (2.0-7.7); Basophil# 0.11 X10^3/uL; Basophil% 1.2 % (0-1); Eosinophil# 0.17 X10^3/uL; Eosinophils% 1.8 % (0-5); Hematocrit 43.8 % (37-47); Hemoglobin 13.4 g/dL (12.0-15.0); Lymphocyte # 2.48 X10^3/ul (0.83-4.51); Lymphocyte % 26.5 % (19-41); Mean Corp Hgb Conc 30.6 g/dL (32-36); Mean Corpuscular Volume 81.9 fL (81-99); Mean Platelet Vol. 11.1 fl (6.2-12.0); Monocyte# 0.47 X10^3/uL; NRBC Flagged by Analyzer 0 % (0-5); Neutrophil # 6.09 X10^3/uL (2.7-7.7); Neutrophil % 65.1 % (47-70); Platelet Count 407 K/mm3 (150-450); RBC Distribution Width CV 13.3 % (11.6-14.6); RBC Distribution Width SD 39.6 fl (35.1-43.9); Red Blood Count 5.35 M/mm3 (4.2-5.4); White Blood Count 9.4 K/mm3 (4.4-11.0)
[2023-09-07 18:54] LABS: ALB/GLOB Ratio 0.7 RATIO (0.9-2.4); AST(SGOT) 21 U/L (15-37); Alanine Aminotransfer ALT/SGPT 30 U/L (13-56); Albumin, Serum 3.6 g/dL (3.2-5.0); Alkaline Phosphatase 73 U/L (45-117); Anion Gap 10 (5-15); BUN 15 mg/dL (7-18); BUN/Creat Ratio 15.2 RATIO (10-20); Calcium,Total 9.5 mg/dL (8.5-10.1); Chloride 101 mmol/L (98-107); Creatinine, Serum 0.99 mg/dL (0.55-1.02); EST Glomerular Filtration Rate 62 mL/min (>60); Est Glom Filt Rate - Afr Amer 76 mL/min (>60); Globulin 4.9 g/dL (2.2-4.2); Glucose 166 mg/dL (74-106); Potassium 3.8 mmol/L (3.5-5.1); Protein, Total 8.5 g/dL (6.4-8.2); Sodium Level 137 mmol/L (136-145)
== END | disposition home or self-care (01) ==
LOC: OPBI 14:16
PROVIDERS: PCP Family Medicine; Referring Provider Family Medicine; Visit Provider Family Medicine
DX: Z12.31 Encounter for screening mammogram for malignant neoplasm of breast (principal); L40.59 Other psoriatic arthropathy; Z79.899 Other long term (current) drug therapy
CPT/HCPCS: 36415; 77063; 77067; 80053; 85025

== ENCOUNTER → 2023-11-06 | Outpatient (CLI) | payer BC, SELFPAY ==
[2023-11-06 15:40] LABS: Absolute Lymphocyte Count 1.69 X10^3/uL (0.83-4.51); Absolute Neutrophil Count 10.1 X10^3/uL (2.0-7.7); Basophil# 0.08 X10^3/uL; Basophil% 0.6 % (0-1); Eosinophil# 0.07 X10^3/uL; Eosinophils% 0.6 % (0-5); Hematocrit 40.8 % (37-47); Hemoglobin 12.7 g/dL (12.0-15.0); Lymphocyte # 1.69 X10^3/ul (0.83-4.51); Lymphocyte % 13.5 % (19-41); Mean Corp Hgb Conc 31.1 g/dL (32-36); Mean Corpuscular Volume 80.5 fL (81-99); Mean Platelet Vol. 11.3 fl (6.2-12.0); Monocyte# 0.57 X10^3/uL; Monocyte% 4.5 % (0-10); NRBC Flagged by Analyzer 0 % (0-5); Neutrophil # 10.08 X10^3/uL (2.7-7.7); Neutrophil % 80.3 % (47-70); Platelet Count 374 K/mm3 (150-450); RBC Distribution Width CV 14.8 % (11.6-14.6); RBC Distribution Width SD 42.6 fl (35.1-43.9); Red Blood Count 5.07 M/mm3 (4.2-5.4); White Blood Count 12.6 K/mm3 (4.4-11.0)
[2023-11-06 16:06] LABS: ALB/GLOB Ratio 0.7 RATIO (0.9-2.4); AST(SGOT) 18 U/L (15-37); Alanine Aminotransfer ALT/SGPT 24 U/L (13-56); Albumin, Serum 3.4 g/dL (3.2-5.0); Alkaline Phosphatase 74 U/L (45-117); Anion Gap 4 (5-15); BUN 12 mg/dL (7-18); BUN/Creat Ratio 15.2 RATIO (10-20); Calcium,Total 9.3 mg/dL (8.5-10.1); Chloride 104 mmol/L (98-107); Creatinine, Serum 0.79 mg/dL (0.55-1.02); EST Glomerular Filtration Rate 81 mL/min (>60); Est Glom Filt Rate - Afr Amer 98 mL/min (>60); Globulin 4.6 g/dL (2.2-4.2); Glucose 108 mg/dL (74-106); Sodium Level 137 mmol/L (136-145)
== END | disposition home or self-care (01) ==
LOC: MTLAB 12:43
PROVIDERS: PCP Family Medicine; Referring Provider Internal Medicine Rheumatology; Visit Provider Internal Medicine Rheumatology
DX: L40.59 Other psoriatic arthropathy (principal); L40.8 Other psoriasis; K76.0 Fatty (change of) liver, not elsewhere classified; Z79.899 Other long term (current) drug therapy
CPT/HCPCS: 36415; 80053; 85025

== ENCOUNTER → 2023-12-13 | Outpatient (CLI) | payer BC, SELFPAY ==
[2023-12-13 17:30] LABS: Absolute Neutrophil Count 10.1 X10^3/uL (2.0-7.7); Basophil# 0.08 X10^3/uL; Basophil% 0.6 % (0-1); Eosinophil# 0.04 X10^3/uL; Eosinophils% 0.3 % (0-5); Hematocrit 40.8 % (37-47); Hemoglobin 12.8 g/dL (12.0-15.0); Lymphocyte % 21.1 % (19-41); Mean Corp Hgb Conc 31.4 g/dL (32-36); Mean Corpuscular Hgb 25.8 pg (27.0-32.0); Mean Corpuscular Volume 82.1 fL (81-99); Mean Platelet Vol. 10.4 fl (6.2-12.0); Monocyte# 0.54 X10^3/uL; Monocyte% 3.9 % (0-10); NRBC Flagged by Analyzer 0 % (0-5); Neutrophil # 10.12 X10^3/uL (2.7-7.7); Neutrophil % 73.4 % (47-70); Platelet Count 402 K/mm3 (150-450); RBC Distribution Width CV 14.9 % (11.6-14.6); RBC Distribution Width SD 44.7 fl (35.1-43.9); Red Blood Count 4.97 M/mm3 (4.2-5.4); White Blood Count 13.8 K/mm3 (4.4-11.0)
[2023-12-13 18:28] LABS: ALB/GLOB Ratio 0.8 RATIO (0.9-2.4); AST(SGOT) 14 U/L (15-37); Alanine Aminotransfer ALT/SGPT 27 U/L (13-56); Albumin, Serum 3.2 g/dL (3.2-5.0); Alkaline Phosphatase 76 U/L (45-117); Anion Gap 9 (5-15); BUN 19 mg/dL (7-18); BUN/Creat Ratio 22.5 RATIO (10-20); Chloride 100 mmol/L (98-107); Creatinine, Serum 0.84 mg/dL (0.55-1.02); EST Glomerular Filtration Rate 75 mL/min (>60); Est Glom Filt Rate - Afr Amer 91 mL/min (>60); Globulin 4.1 g/dL (2.2-4.2); Glucose 173 mg/dL (74-106); Potassium 3.8 mmol/L (3.5-5.1); Protein, Total 7.3 g/dL (6.4-8.2); Sodium Level 135 mmol/L (136-145)
== END | disposition home or self-care (01) ==
LOC: MTLAB 15:20
PROVIDERS: PCP Family Medicine; Referring Provider Internal Medicine Rheumatology; Visit Provider Internal Medicine Rheumatology
DX: L40.59 Other psoriatic arthropathy (principal); Z79.899 Other long term (current) drug therapy; M19.071 Primary osteoarthritis, right ankle and foot
CPT/HCPCS: 36415; 80053; 85025

== ENCOUNTER → 2024-02-07 | Outpatient (CLI) | payer BC, SELFPAY ==
[2024-02-07 17:47] LABS: Absolute Lymphocyte Count 2.96 X10^3/uL (0.83-4.51); Absolute Neutrophil Count 4.7 X10^3/uL (2.0-7.7); Basophil# 0.09 X10^3/uL; Basophil% 1.1 % (0-1); Eosinophil# 0.27 X10^3/uL; Eosinophils% 3.2 % (0-5); Hematocrit 39.1 % (37-47); Hemoglobin 12.2 g/dL (12.0-15.0); Lymphocyte # 2.96 X10^3/ul (0.83-4.51); Lymphocyte % 34.7 % (19-41); Mean Corp Hgb Conc 31.2 g/dL (32-36); Mean Corpuscular Hgb 25.8 pg (27.0-32.0); Mean Corpuscular Volume 82.8 fL (81-99); Mean Platelet Vol. 9.9 fl (6.2-12.0); Monocyte# 0.44 X10^3/uL; Monocyte% 5.2 % (0-10); NRBC Flagged by Analyzer 0 % (0-5); Neutrophil # 4.73 X10^3/uL (2.7-7.7); Neutrophil % 55.4 % (47-70); Platelet Count 333 K/mm3 (150-450); RBC Distribution Width CV 13.8 % (11.6-14.6); RBC Distribution Width SD 41.1 fl (35.1-43.9); Red Blood Count 4.72 M/mm3 (4.2-5.4); White Blood Count 8.5 K/mm3 (4.4-11.0)
[2024-02-07 18:30] LABS: ALB/GLOB Ratio 0.8 RATIO (0.9-2.4); AST(SGOT) 12 U/L (15-37); Alanine Aminotransfer ALT/SGPT 18 U/L (13-56); Albumin, Serum 3.3 g/dL (3.2-5.0); Alkaline Phosphatase 71 U/L (45-117); Anion Gap 6 (5-15); BUN 16 mg/dL (7-18); BUN/Creat Ratio 20.1 RATIO (10-20); Calcium,Total 8.9 mg/dL (8.5-10.1); Chloride 102 mmol/L (98-107); EST Glomerular Filtration Rate 80 mL/min (>60); Est Glom Filt Rate - Afr Amer 97 mL/min (>60); Globulin 3.9 g/dL (2.2-4.2); Glucose 141 mg/dL (74-106); Potassium 3.7 mmol/L (3.5-5.1); Protein, Total 7.2 g/dL (6.4-8.2); Sodium Level 137 mmol/L (136-145)
== END | disposition home or self-care (01) ==
LOC: MTLAB 16:26
PROVIDERS: PCP Family Medicine; Referring Provider Internal Medicine Rheumatology; Visit Provider Internal Medicine Rheumatology
DX: L40.59 Other psoriatic arthropathy (principal); Z79.899 Other long term (current) drug therapy; L40.8 Other psoriasis; K76.0 Fatty (change of) liver, not elsewhere classified
CPT/HCPCS: 36415; 80053; 85025

== ENCOUNTER → 2024-04-10 | Outpatient (CLI) | payer BC, SELFPAY ==
[2024-04-10 18:12] LABS: Absolute Lymphocyte Count 2.42 X10^3/uL (0.83-4.51); Absolute Neutrophil Count 7.5 X10^3/uL (2.0-7.7); Basophil# 0.07 X10^3/uL; Basophil% 0.7 % (0-1); Eosinophil# 0.13 X10^3/uL; Eosinophils% 1.2 % (0-5); Hematocrit 39.6 % (37-47); Hemoglobin 12.3 g/dL (12.0-15.0); Lymphocyte # 2.42 X10^3/ul (0.83-4.51); Lymphocyte % 22.8 % (19-41); Mean Corp Hgb Conc 31.1 g/dL (32-36); Mean Corpuscular Hgb 25.4 pg (27.0-32.0); Mean Corpuscular Volume 81.8 fL (81-99); Mean Platelet Vol. 10.2 fl (6.2-12.0); Monocyte% 3.8 % (0-10); NRBC Flagged by Analyzer 0 % (0-5); Neutrophil # 7.53 X10^3/uL (2.7-7.7); Neutrophil % 70.9 % (47-70); Platelet Count 621 K/mm3 (150-450); RBC Distribution Width CV 15.6 % (11.6-14.6); RBC Distribution Width SD 46.5 fl (35.1-43.9); Red Blood Count 4.84 M/mm3 (4.2-5.4); White Blood Count 10.6 K/mm3 (4.4-11.0)
[2024-04-10 19:08] LABS: ALB/GLOB Ratio 0.5 RATIO (0.9-2.4); AST(SGOT) 12 U/L (15-37); Alanine Aminotransfer ALT/SGPT 20 U/L (13-56); Albumin, Serum 2.7 g/dL (3.2-5.0); Alkaline Phosphatase 67 U/L (45-117); Anion Gap 5 (5-15); BUN 11 mg/dL (7-18); BUN/Creat Ratio 12.5 RATIO (10-20); Calcium,Total 9.6 mg/dL (8.5-10.1); Chloride 101 mmol/L (98-107); Creatinine, Serum 0.88 mg/dL (0.55-1.02); EST Glomerular Filtration Rate 71 mL/min (>60); Est Glom Filt Rate - Afr Amer 86 mL/min (>60); Globulin 5.1 g/dL (2.2-4.2); Glucose 149 mg/dL (74-106); Potassium 3.8 mmol/L (3.5-5.1); Protein, Total 7.8 g/dL (6.4-8.2); Sodium Level 135 mmol/L (136-145)
== END | disposition home or self-care (01) ==
PROVIDERS: PCP Family Medicine; Referring Provider Internal Medicine Rheumatology; Visit Provider Internal Medicine Rheumatology
DX: L40.59 Other psoriatic arthropathy (principal); Z79.899 Other long term (current) drug therapy
CPT/HCPCS: 36415; 80053; 85025

== ENCOUNTER → 2024-07-02 | Outpatient (CLI) | payer BC, SELFPAY ==
[2024-07-02 18:13] LABS: Absolute Lymphocyte Count 2.93 X10^3/uL (0.83-4.51); Basophil# 0.08 X10^3/uL; Basophil% 0.9 % (0-1); Eosinophil# 0.11 X10^3/uL; Eosinophils% 1.3 % (0-5); Hematocrit 41.5 % (37-47); Hemoglobin 13.4 g/dL (12.0-15.0); Lymphocyte # 2.93 X10^3/ul (0.83-4.51); Lymphocyte % 34.4 % (19-41); Mean Corp Hgb Conc 32.3 g/dL (32-36); Mean Corpuscular Hgb 27.6 pg (27.0-32.0); Mean Corpuscular Volume 85.4 fL (81-99); Mean Platelet Vol. 10.5 fl (6.2-12.0); Monocyte# 0.36 X10^3/uL; Monocyte% 4.2 % (0-10); NRBC Flagged by Analyzer 0 % (0-5); Neutrophil # 5.01 X10^3/uL (2.7-7.7); Platelet Count 360 K/mm3 (150-450); RBC Distribution Width CV 14.1 % (11.6-14.6); RBC Distribution Width SD 43.6 fl (35.1-43.9); Red Blood Count 4.86 M/mm3 (4.2-5.4); White Blood Count 8.5 K/mm3 (4.4-11.0)
[2024-07-02 21:25] LABS: ALB/GLOB Ratio 1.2 RATIO (0.9-2.4); AST(SGOT) 19 U/L (<=31); Alanine Aminotransfer ALT/SGPT 17 U/L (<=34); Albumin, Serum 4.2 g/dL (3.5-5.0); Alkaline Phosphatase 56 U/L (35-104); Anion Gap 14 (5-15); BUN 14 mg/dL (4-19); BUN/Creat Ratio 14.7 RATIO (10-20); Calcium,Total 9.7 mg/dL (7.6-11.0); Carbon Dioxide 27.1 mmol/L (21.0-32.0); Chloride 100 mmol/L (98-108); Creatinine, Serum 0.97 mg/dL (0.70-1.20); EST Glomerular Filtration Rate 69 (>60); Globulin 3.4 g/dL (2.2-4.2); Glucose 69 mg/dL (70-99); Protein, Total 7.6 g/dL (5.9-8.4); Sodium Level 140 mmol/L (133-145); Total Bilirubin 0.24 mg/dL (0.00-1.30)
== END | disposition home or self-care (01) ==
LOC: MTLAB 16:15
PROVIDERS: PCP Family Medicine; Referring Provider Internal Medicine Rheumatology; Visit Provider Internal Medicine Rheumatology
DX: L40.59 Other psoriatic arthropathy (principal); Z79.899 Other long term (current) drug therapy
CPT/HCPCS: 36415; 80053; 85025

== ENCOUNTER → 2024-07-12 | Outpatient (CLI) | payer BC, SELFPAY ==
--- NOTE | 2024-07-12 16:09 | RAD_ITS ---
PROCEDURE: CERV SPINE 4 OR 5 VIEWS 07/12/2024 REASON FOR EXAM: PAIN AND NEUROPATHY TECHNIQUE: Five views of the cervical spine COMPARISON: None FINDINGS: See impression RAD/Cerv Spine 4 or 5 Views IMPRESSION: Minimal cervical kyphosis. Vertebral body heights are preserved. Mild/moderat e disc space narrowing from C4 through C6 with associated uncovertebral arthrosis, greater on the right. Moderate bony right foraminal narrowing at C4-5 and C5-6. Mild multilevel facet arthropathy. Reading Location: [facility]
== END | disposition home or self-care (01) ==
PROVIDERS: PCP Family Medicine; Referring Provider Family Medicine; Visit Provider Family Medicine
DX: M53.9 Dorsopathy, unspecified (principal)
CPT/HCPCS: 72050

== ENCOUNTER 2024-07-22 15:53 | Outpatient (RCR) | payer BC, SELFPAY | END 2024-07-22 19:00 | disposition home or self-care (01) | LOC: PT 15:53 | PROVIDERS: PCP Family Medicine; Referring Provider Family Medicine; Visit Provider Family Medicine | DX: M54.12 Radiculopathy, cervical region (principal) | CPT/HCPCS: 97161 ==

== ENCOUNTER → 2024-08-08 | Outpatient (CLI) | payer BC, SELFPAY | END | disposition home or self-care (01) | LOC: MTLAB 10:25 | PROVIDERS: PCP Family Medicine | DX: L40.0 Psoriasis vulgaris (principal); Z79.899 Other long term (current) drug therapy ==

== ENCOUNTER → 2024-09-10 | Outpatient (CLI) | payer BC, SELFPAY ==
--- NOTE | 2024-09-10 12:53 | MRI_ITS ---
PROCEDURE: SPINE CERVICAL (ROUTINE) 09/10/2024 REASON FOR EXAM: PAIN, HYPERREFLEXIA TECHNIQUE: Multiplanar and multisequence images were obtained without IV contrast administration. COMPARISON: Radiographs on 07/26/2024. FINDINGS: Moderate diffuse spondylosis. Moderate multilevel degenerative disc disease. There is normal signal intensity from the visualized bone marrow without evidence of replacement or acute fracture. The visualized portions of the spinal cord are unremarkable. The visualized portions of the posterior fossa are unremarkable. There is reversal of the cervical lordosis, probably muscular spasm and pain. Evaluation of the individual levels revealed the following: C2-C3: There is grade 1 anterolisthesis measuring 2.4 mm with mild diffuse disc bulge. The spinal canal is not narrowed. There is mild bilateral neural foramina narrowing. C3-C4: There is grade 1 anterolisthesis measuring 3.3 mm with mild diffuse disc bulge. The spinal canal is not narrowed. There is minimal bilateral neural foramina narrowing. C4-C5: There is grade 1 retrolisthesis measuring 4.5 mm. Moderate diffuse disc bulge. Superimposed central/right paracentral disc extrusion measuring 1.2 x 0.5 cm in its largest craniocaudal and anteroposterior dimensions respectively. Caudal subligamentous slippage of the herniated disc without sequestration. The spinal canal is moderately narrowed. There is severe right and moderate left neural foramina narrowing. C5-C6: There is moderate diffuse disc bulge. Superimposed broad-based left posterolateral disc protrusion measuring 4.5 mm. The spinal canal is mildly narrowed. There is moderate bilateral neural foramina narrowing. C6-C7: There is mild diffuse disc bulge. The spinal canal is not narrowed. There is mild bilateral neural foramina narrowing. C7-T1: There is mild diffuse disc bulge. The spinal canal is not narrowed. There is mild bilateral neural foramina narrowing. MRI/Spine Cervical (Routine) IMPRESSION: Spondylosis. Degenerative disc disease. Reading Location: [place] [id number]
== END | disposition home or self-care (01) ==
LOC: OPMRI 12:36
PROVIDERS: PCP Family Medicine; Referring Provider Student in an Organized Health Care Education/Training Program; Visit Provider Student in an Organized Health Care Education/Training Program
DX: G95.9 Disease of spinal cord, unspecified (principal); M54.12 Radiculopathy, cervical region
CPT/HCPCS: 72141

== ENCOUNTER → 2024-09-13 | Outpatient (CLI) | payer BC, SELFPAY ==
[2024-09-13 10:18] LABS: Absolute Lymphocyte Count 2.24 X10^3/uL (0.83-4.51); Absolute Neutrophil Count 7.4 X10^3/uL (2.0-7.7); Basophil# 0.08 X10^3/uL; Basophil% 0.8 % (0-1); Eosinophil# 0.13 X10^3/uL; Eosinophils% 1.2 % (0-5); Hematocrit 36.8 % (37-47); Hemoglobin 11.9 g/dL (12.0-15.0); Lymphocyte # 2.24 X10^3/ul (0.83-4.51); Lymphocyte % 21.1 % (19-41); Mean Corp Hgb Conc 32.3 g/dL (32-36); Mean Corpuscular Hgb 27.4 pg (27.0-32.0); Mean Corpuscular Volume 84.6 fL (81-99); Mean Platelet Vol. 10.6 fl (6.2-12.0); Monocyte# 0.68 X10^3/uL; Monocyte% 6.4 % (0-10); NRBC Flagged by Analyzer 0 % (0-5); Neutrophil # 7.42 X10^3/uL (2.7-7.7); Platelet Count 348 K/mm3 (150-450); RBC Distribution Width CV 14.3 % (11.6-14.6); RBC Distribution Width SD 43.2 fl (35.1-43.9); Red Blood Count 4.35 M/mm3 (4.2-5.4); White Blood Count 10.6 K/mm3 (4.4-11.0)
[2024-09-13 14:51] LABS: ALB/GLOB Ratio 1.3 RATIO (0.9-2.4); AST(SGOT) 15 U/L (<=31); Alanine Aminotransfer ALT/SGPT 18 U/L (<=34); Alkaline Phosphatase 55 U/L (35-104); Anion Gap 12 (5-15); BUN 14 mg/dL (4-19); BUN/Creat Ratio 16.1 RATIO (10-20); Calcium,Total 9.3 mg/dL (7.6-11.0); Chloride 103 mmol/L (98-108); Creatinine, Serum 0.84 mg/dL (0.70-1.20); EST Glomerular Filtration Rate 83 (>60); Glucose 91 mg/dL (70-99); Potassium 3.8 mmol/L (3.3-5.1); Protein, Total 7.1 g/dL (5.9-8.4); Sodium Level 140 mmol/L (133-145); Total Bilirubin 0.26 mg/dL (0.00-1.30)
[2024-09-17 17:08] LABS: QNTFERON TB Mitogen Value > 10.00 IU/mL (.); QNTFERON TB Nil Value 0.07 IU/mL (.); QNTFERON TB1+ Ag Value 0.08 IU/mL (.); QNTFERON TB2+ Ag Value 0.08 IU/mL (.); QNTIFERON TB Positive Criteria Negative (Negative)
== END | disposition home or self-care (01) ==
LOC: MTLAB 09:02
PROVIDERS: PCP Family Medicine; Referring Provider Internal Medicine Rheumatology; Visit Provider Internal Medicine Rheumatology
DX: L40.0 Psoriasis vulgaris (principal); L40.59 Other psoriatic arthropathy; Z79.899 Other long term (current) drug therapy; L40.8 Other psoriasis; M19.071 Primary osteoarthritis, right ankle and foot
CPT/HCPCS: 80053; 85025; 86480

== ENCOUNTER → 2024-12-05 | Outpatient (CLI) | payer BC, SELFPAY | END | disposition home or self-care (01) | LOC: MTLAB 09:05 | PROVIDERS: PCP Family Medicine; Referring Provider Internal Medicine Rheumatology; Visit Provider Family Medicine | DX: I10 Essential (primary) hypertension (principal); L40.59 Other psoriatic arthropathy; E11.9 Type 2 diabetes mellitus without complications; M54.12 Radiculopathy, cervical region; Z79.899 Other long term (current) drug therapy ==

== ENCOUNTER 2024-12-18 05:30 | Day surgery (SDC) | payer BC, SELFPAY ==
[2024-12-05 12:38] LABS: Hematocrit 41.3 % (37-47); Hemoglobin 13.5 g/dL (12.0-15.0); Immature Granulocytes Count 0.020 X10^3/uL (0.0-0.0); Mean Corp Hgb Conc 32.7 g/dL (32-36); Mean Corpuscular Volume 83.8 fL (81-99); Mean Platelet Vol. 10.8 fl (6.2-12.0); NRBC Flagged by Analyzer 0 % (0-5); Platelet Count 326 K/mm3 (150-450); RBC Distribution Width CV 13.8 % (11.6-14.6); RBC Distribution Width SD 42.0 fl (35.1-43.9); Red Blood Count 4.93 M/mm3 (4.2-5.4); White Blood Count 7.6 K/mm3 (4.4-11.0)
[2024-12-05 13:03] LABS: Magnesium 2.6 mg/dL (1.5-2.2)
[2024-12-05 13:28] LABS: AST(SGOT) 19 U/L (<=31); Alanine Aminotransfer ALT/SGPT 18 U/L (<=34); Albumin, Serum 4.2 g/dL (3.5-5.0); Alkaline Phosphatase 63 U/L (35-104); Anion Gap 13 (5-15); BUN 16 mg/dL (4-19); BUN/Creat Ratio 16.1 RATIO (10-20); Calcium,Total 9.6 mg/dL (7.6-11.0); Carbon Dioxide 25.6 mmol/L (21.0-32.0); Chloride 101 mmol/L (98-108); Cholesterol 173 mg/dL (<=200); Globulin 3.5 g/dL (2.2-4.2); Glucose 94 mg/dL (70-99); Low Density Lipoprotein Calc. 84 mg/dL; Potassium 4.2 mmol/L (3.3-5.1); Triglycerides 124 mg/dL; Very Low Density Lipoprotein 25 mg/dL (5-40); Vitamin D,25 Hydroxy 21.9 ng/mL (30-100); cholesterol:hdl ratio screen 2.70
[2024-12-18] VITALS (11 sets, daily range): BP systolic 115–165; BP diastolic 87–97; PULSE 76–90; RESP 14–18; TEMP 36.1–36.4; O2SAT 88–100; BMI 34.4
--- OUTSIDE RECORDS SUMMARY | 2024-12-18 05:33 | XMS RPT_ITS | CCD ---
Author Organization [facility] Care Team Providers Care Assembler 1St Shift Name Role Phone Ricki López Attending Unavailable PROVIDER, UNKNOWN Referring Unavailable Nancy Arellano Primary Care Unavailable Dr. Nancy Arellano Primary Care Provider Dr. Nancy Arellano Referring Provider HARSH Mckeon Attending Provider Dr. Nahum Villegas Attending Provider Dr. Nancy Arellano Primary Care Provider Dr. Nancy Arellano Referring Provider Dr. Nahum Villegas Attending Provider Dr. Nancy Arellano Primary Care Provider Dr. Nancy Arellano Referring Provider Stephen HOUSE, HARSH Ocasio Attending Provider Dr. Nahum Villegas Attending Provider Dr. Nancy Arellano MD Primary Care Provider Dr. Aurea Pritchard MD Attending Provider Dr. Aurea Pritchard MD Referring Provider Dr. Nancy Arellano MD Attending Provider Dr. Nancy Arellano MD Referring Provider Dr. Nancy Arellano MD Primary Care Provider Dr. Aurea Pritchard MD Attending Provider Dr. Aurea Pritchard MD Referring Provider Francisco HOUSE Sagrario Attending Provider Dr. Yonis Gonzalez MD Attending Provider FURSETH PEÑALOZA Attending Provider SETH CARABALLO Referring Provider [phone] Keesha BERMAN, Reta Primary Care Provider Sagrario Lopez Referring Provider [phone] Keesha BERMAN, Reta Referring Provider ANUPAM JACINTO Other Provider Sagrario Lopez Attending Provider [phone] Keesha EBRMAN, Reta Primary Care Provider Macho BERMAN, Dr. Villar Attending Provider Macho BERMAN, Dr. Villar Referring Provider Reta Thao MD Attending Provider Franklin BERMAN, Dr. Ramos Attending Provider Jolliff, Nancy S Referring Unavailable Jolliff, Nancy S Attending Unavailable Jolliff, Nancy S Primary Care Unavailable Keesha, Chalon Attending Unavailable Keesha, Chalon Primary Care Unavailable Vellanki, Aurea Referring Unavailable Vellanki, Aurea Referring Unavailable Vellanki, Aurea Attending Unavailable Jolliff, Nancy S Primary Care Unavailable Keesha, Chalon Primary Care Unavailable Keesha, Chalon Referring Unavailable FranciscoRogerioyn Attending Unavailable Keesha, Chalon Referring Unavailable Keesha, Chalon Primary Care Unavailable Richard Reid Attending Unavailable Jolliff, Nancy S Referring Unavailable Jolliff, Nancy S Primary Care Unavailable Francisco, Sagrario Attending Unavailable Jolliff, Nancy S Primary Care Unavailable Yonis Gonzalez Attending Unavailable Jolliff, Nancy S Referring Unavailable Jolliff, Nancy S Attending Unavailable Jolliff, Nancy S Primary Care Unavailable Keesha, Chalon Primary Care Unavailable MAU JONESANNE Referring Unavailable MADI JONES Attending Unavailable Vellanki, Aurea Referring Unavailable Vellanki, Aurea Attending Unavailable Keesha, Chalon Primary Care Unavailable ABIELT MADI Consulting Unavailable Vellanki, Aurea Referring Unavailable Jolliff, Nancy S Primary Care Unavailable Aurea Pritchard Attending Unavailable Reta Thao Primary Care Unavailable Sagrario Singh Referring Unavailable Sagrario Singh Attending Unavailable Reta Thao Referring Unavailable Reta Thao Primary Care Unavailable Richard Reid Attending Unavailable Aurea Pritchard Referring Unavailable Nancy Arellano Primary Care Unavailable Aurea Pritchard Attending Unavailable Allergies Allergy Classification Reported Allergen(s) Allergy Type Date of Onset Reaction(s) Facility (8 sources) Amoxicillin Drug Allergy 07-17-2023 Rash [facility] (1 source) Amoxicillin Drug Allergy 12-12-2024 [facility] Repository Medications Current Medications Medication Drug Class(es) Dates Sig (Normalized) Sig (Original) atenolol 50 mg oral tablet (14 sources) beta-Adrenergic Deon Start: 07-12-2022 take 1 tablet by mouth once daily Atenolol 50 mg tablet Active 50 mg PO DAILY July 12, 2022 12:00am 24 hr buPROPion hydrochloride 300 mg extended release oral tablet (1 source) Aminoketone Start: 12-04-2024 take 1 tablet by mouth once daily Bupropion Hcl 300 mg tablet extended release 24 hr Active 300 mg PO DAILY December 04, 2024 12:00am cholecalciferol 0.625 mg oral capsule (1 source) Vitamin D Start: 12-12-2024 take 1 capsule by mouth every week Cholecalciferol (Vitamin D3) 625 mcg (25,000 unit) capsule Active 625 ug PO EVERY WEEK December 12, 2024 12:00am DULoxetine 60 mg delayed release oral capsule (20 sources) Serotonin and Norepinephrine Reuptake Inhibitor Start: 07-13-2022 End: 07-20-2022 take 1 capsule by mouth once daily in the morning Duloxetine 30 mg capsule,delayed release(DR/EC) Discontinued 30 mg PO EVERY MORNING 7 7 0 July 13, 2022 12:00am July 19, 2022 12:00am July 20, 2022 12:05am Start: 07-12-2022 End: 12-04-2024 take 1 capsule by mouth once daily in the morning, then take 1 capsule by mouth once daily Duloxetine 60 mg capsule,delayed release(DR/EC) Active 60 mg PO TWICE A DAY December 04, 2024 12:00am Take 1 capsule orally every morning and 1 capsule nightly folic acid 1 mg oral tablet (1 source) Start: 12-04-2024 take 2 tablets by mouth once daily Folic Acid 1 mg tablet Active 2 mg PO DAILY December 04, 2024 12:00am 1 ml ixekizumab 80 mg/ml auto-injector (4 sources) Interleukin-17A Antagonist Start: 09-13-2024 Ixekizumab (Taltz Autoinjector) 80 mg/mL auto-injector Active 80 mg SC EVERY MONTH September 13, 2024 12:00am lisinopril 20 mg oral tablet (4 sources) Angiotensin Converting Enzyme Inhibitor Start: 09-13-2024 take 1 tablet by mouth once daily Lisinopril 20 mg tablet Active 20 mg PO daily September 13, 2024 12:00am meloxicam 15 mg oral tablet (14 sources) Nonsteroidal Anti-inflammatory Drug Start: 07-12-2022 take 1 tablet by mouth once daily as needed for pain Meloxicam 15 mg tablet Active 15 mg PO DAILY as needed for pain July 12, 2022 12:00am 24 hr metFORMIN hydrochloride 500 mg extended release oral tablet (14 sources) Biguanide Start: 07-12-2022 Metformin 500 mg tablet extended release 24 hr Active 1000 mg PO DAILY July 12, 2022 12:00am Start: 07-12-2022 take 1 tablet by dinh th once daily Metformin 500 mg tablet extended release 24 hr Active 500 mg PO DAILY July 12, 2022 12:00am methotrexate 2.5 mg oral tablet (1 source) Folate Analog Metabolic Inhibitor Start: 12-04-2024 take 5 tablets by mouth every week Methotrexate Sodium 2.5 mg tablet Active 12.5 mg PO EVERY WEEK December 04, 2024 12:00am omeprazole 40 mg delayed release oral capsule (1 source) Proton Pump Inhibitor Start: 12-04-2024 take 1 capsule by mouth once daily Omeprazole 40 mg capsule,delayed release(DR/EC) Active 40 mg PO DAILY December 04, 2024 12:00am Semaglutide (1 source) Start: 12-04-2024 inject 1 mg by subcutaneous injection every week Semaglutide (Semaglutide 1 Mg/Dose (4 Mg/3 Ml) Subcutaneous Pen Injector) 1 mg/dose (4 mg/3 mL) pen injector Active 1 mg SC EVERY WEEK Guadalupe 3rd, 2025 12:00am traMADol hydrochloride 50 mg oral tablet (14 sources) Opioid Agonist Start: 07-12-2022 take 1 tablet by mouth three times daily as needed for pain Tramadol 50 mg tablet Active 50 mg PO THREE TIMES A DAY as needed for pain July 12, 2022 12:00am Completed/Discontinued Medications Medication Drug Class(es) Dates Sig (Normalized) Sig (Original) benzonatate 100 mg oral capsule (14 sources) Non-narcotic Antitussive Start: 07-12-2022 End: 04-19-2023 take 2 capsules by mouth three times daily as needed for cough Benzonatate 100 mg capsule Discontinued 200 mg PO THREE TIMES A DAY as needed for cough 30 0 July 12, 2022 12:00am April 19, 2023 4:48pm Start: 07-12-2022 End: 04-19-2023 take 200 mg by mouth three times daily Benzonatate Discontinued 200 MG PO THREE TIMES A DAY 30 July 12, 2022 12:00am April 19, 2023 4:48pm 1 ml certolizumab pegol 200 mg/ml prefilled syringe (14 sources) Start: 07-12-2022 End: 07-17-2023 Certolizumab Pegol (Cimzia) 400 mg/2 mL (200 mg/mL x 2) syringe kit Discontinued 400 mg SC every 2 weeks July 12, 2022 12:00am July 17, 2023 8:22am dexamethasone 6 mg oral tablet (14 sources) Corticosteroid Start: 07-12-2022 End: 04-19-2023 take 1 tablet by mouth once daily Dexamethasone 6 mg tablet Discontinued 6 mg PO DAILY 7 0 July 12, 2022 12:00am April 19, 2023 4:48pm predniSONE 10 mg oral tablet (9 sources) Start: 04-19-2023 End: 07-17-2023 take 4 tablets by mouth once daily, then take 3 tablets by mouth once daily, then take 2 tablets by mouth once daily, then take 1 tablet by mouth once daily Prednisone 10 mg tablet Discontinued 10 mg PO As Directed 30 April 19, 2023 1:00am July 17, 2023 8:22am 4 tablets daily x 3 days, then 3 tabs daily x 3 days, then 2 tabs daily x 3 days, then 1 tablet daily x 3 days Problems Problem Classification Problem Date Documented Date Episodic/Chronic Acute bronchitis (16 sources) Acute bronchitis; Translations: [Acute bronchitis, unspecified] 07-12-2022 Episodic Diabetes mellitus without complication (15 sources) Diabetes mellitus; Translations: [Type 2 diabetes mellitus without complications] Onset: 12-16-2024 07-13-2022 Chronic Essential hypertension (17 sources) Essential (primary) hypertension; Translations: [Hypertensive disorder] Onset: 06-14-2018 07-13-2022 Chronic Comment on above: CONTROLLED ON MED External cause codes: Struck by; against (2 sources) Striking against or struck by other objects, initial encounter; Translations: [Striking against or struck by other objects, init encntr] Onset: 06-14-2018 Fracture of lower limb (2 sources) Nondisplaced fracture of fifth metatarsal bone, right foot, initial encounter for closed fracture; Translations: [Nondisp fx of fifth metatarsal bone, right foot, init] Onset: 06-14-2018 Episodic Malaise and fatigue (16 sources) Other malaise and fatigue; Translations: [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] 07-12-2022 Episodic Other aftercare (1 source) Other mcfp (current) drug therapy; Translations: [Other filler leaf cutter long (current) drug therapy] Onset: 12-05-2024 Episodic Other inflammatory condition of skin (9 sources) Psoriasis; Translations: [Psoriasis, unspecified] 04-19-2023 Chronic Other inflammatory condition of skin (2 sources) Psoriasis, unspecified; Translations: [Other psoriasis] 04-19-2023 Chronic Other inflammatory condition of skin (2 sources) Other psoriatic arthropathy; Translations: [Other psoriatic arthropathy] Onset: 07-06-2024 Chronic Other inflammatory condition of skin (1 source) Psoriasis vulgaris; Translations: [Psoriasis vulgaris] Onset: 09-19-2024 Chronic Other injuries and conditions due to external causes (2 sources) Unspecified injury of right foot, initial encounter; Translations: [Unspecified injury of right foot, initial encounter] Onset: 06-14-2018 Episodic Other nervous system disorders (14 sources) Polyneuropathy; Translations: [Polyneuropathy, unspecified] 07-13-2022 Chronic Other nervous system disorders (5 sources) Polyneuropathy, unspecified; Translations: [Unspecified hereditary and idiopathic peripheral neuropathy] 07-13-2022 Chronic Other nervous system disorders (11 sources) Cervical myelopathy; Translations: [Disease of spinal cord, unspecified] 07-26-2024 Chronic Other nervous system disorders (1 source) Disease of spinal cord, unspecified; Translations: [Disease of spinal cord, unspecified] Onset: 09-16-2024 Chronic Rheumatoid arthritis and related disease (2 sources) Rheumatoid arthritis, unspecified; Translations: [Rheumatoid arthritis, unspecified] Onset: 06-14-2018 Chronic Spondylosis; intervertebral disc disorders; other back problems (13 sources) Degeneration of cervical intervertebral disc; Translations: [Other cervical disc degeneration, unspecified cervical region] 07-26-2024 Chronic Spondylosis; intervertebral disc disorders; other back problems (3 sources) Radiculopathy, cervical region; Translations: [Cervicalgia] Onset: 07-18-2024 Episodic Results Test Name Value Interpretation Reference Range Facility Orthopedic Visit Reporton Orthopedic Visit Report [facility] [address] [place] [address] OFFICE VISIT Date of Service: 12/12/24 MR#: [id number] Acct: [id number] Name: ANUPAM BOBBY Rep #: [id number] 4 : 1970 Provider: Dr. Richard Reid MD Age/Sex: 54/F Location: [facility] Status: Signed Intake Vital Signs 07/26/24 14:28 Height 5 ft 5 in Intake Visit Reasons: cervical spine Chief Complaint: pre op Allergies amoxicillin Adverse Reaction (Severe, Verified 12/12/24 08:12) Rash Medications ???Medication ???Instructions ???Recorded ???Confirmed ???Type atenolol 50 mg tablet 50 mg PO DAILY 07/12/22 12/12/24 H istory meloxicam 15 mg tablet 15 mg PO DAILY PRN pain 07/12/22 0 12/12/24 History metformin 500 mg tablet,extended 1,000 mg PO DAILY 07/12/22 5 History release 24 hr tramadol 50 mg tablet 50 mg PO TID PRN pain 07/12/2202/25 History ixekizumab 80 mg/mL subcutaneous 80 mg subcut QMONTH 09/13/2412/12 History auto-injector (Taltz Autoinjector) lisinopril 20 mg tablet 20 mg PO QDAY 09/13/24 12/12/24 Hi story bupropion HCl 300 mg 24 hr tablet, 300 mg PO DAILY 12/04/24 5 History extended release duloxetine 60 mg capsule,delayed 60 mg PO BID 12/04/24 12/12/24 His tory release folic acid 1 mg tablet 2 mg PO DAILY 12/04/24 12/12/24 Hi story methotrexate sodium 2.5 mg tablet 12.5 mg PO QWEEK 12/04/24 5 History omeprazole 40 mg capsule,delayed 40 mg PO DAILY 12/04/24 12/12/24 H istory release semaglutide 1 mg/dose (4 mg/3 mL) 1 mg subcut QWEEK 12/04/24 History subcutaneous pen injector (Ozempic) cholecalciferol (vitamin D3) 625 625 mcg PO QWEEK 12/12/24 12/12/24 History mcg (25,000 unit) capsule PFSH Medical History Post-menopausal Wears partial dentures Wears dentures Wears glasses Wears contact lenses History of steroid therapy Psoriatic arthritis Back pain Gastric reflux Former smoker Shortness of breath on exertion Hx of ovarian cyst Psoriasis Hypertension Diabetes mellitus Polyneuropathy Surgical History History of back surgery Family History Mother Heart disease Hypertension Thyroid disorder Father Heart disease Hypertension Sister Hypertension Thyroid disorder Social History Smoking Status: Former smoker Tobacco: How many years used: 20 second hand exposure: No details: occasionally substance use type: does not use what type of physical activity do you participate in: none casey/yazidi: Judaism seatbelt use: always HPI cervical spine Details: This documentation accurately reflects the service provided and the decisions made by me, Dr. Richard Reid MD 12/12/24 0805. Part of today???s visit was documented by Meghann Braxton RN, acting as scribe. ANUPAM BOBBY is a 54 year old F here today for pre op visit for C4-C5 C5-C6 fusion. The patient is a 54-year-old female presenting with cervical spondylosis with radiculopathy. She reports significant pain on the right side, extending from the neck to the elbow, with occasional numbness in the fingers. The symptoms have been progressively worsening, affecting her dexterity and coordination, particularly on the right side. The patient has a history of diabetes mellitus, type 2, which is currently well-controlled with metformin, and her last A1c was 5.3%. She also has hypertension, which is managed with medication, and rheumatoid arthritis for which she takes methotrexate. She has been advised to stop methotrexate temporarily due to the upcoming surgery. - Neurological: Reports pain radiating from the neck to the right elbow, numbness in fingers, and difficulty with dexterity and coordination. - Musculoskeletal: Denies falls or balance issues. - Endocrine: Reports diabetes mellitus, type 2, well-controlled with medication. - Cardiovascular: Reports hypertension, managed with medication. Attestation: Documentation on this patient encounter was supported using ambient scribe technology/ voice AI technology. The patient consented to recording for the purpose of documenting the encounter. Provider reviewed content of the generated note prior to signature. 09/13/24ANUPAM BOBBY is a 54 year old F here today for MRI review of the cervical spine. Patient states her neck pain has worsened since her last visit. She denies any recent injections or treatment. Patient is prescribed meloxicam and tramadol PRN for the pain and she will occasionally take Excedrin as well. Last a1c was 5.3, no blood thinners, no heart or lung issue (more content not included)... Normal [facility] MRSA/SAID NASAL SCREENon MRSA+SAID SCRN PLEASE SEND A1C RESU LTS TO DR. RETA THAO WELL. MRSA MRSA Negative S. AUREUS S. aureus PositiveA Normal [facility] Comment on above: Performed By: #### B TSPAT, L501.9985, M100.651 ####[facility] [id number] [place], [address] CBC W/Diff, Automatedon 09-0 -2024 Absolute Lymph 1.92 X10 3/uL Normal 0.83-4.51 [facility] Comment on above: Order Comment: CBCD AND CMP GOES TO [facility] ALSO. Performed By: #### L 506.1001, L100.0100 #### [facility] [address] [place], [address] Absolute Neut 5.0 X10 3/uL Normal 2.0-7.7 [facility] Comment on above: Order Comment: CBCD AND CMP GOES TO [facility] ALSO. Performed By: #### L 506.1001, L100.0100 #### [facility] [address] [place], [address] Basophils/100 WBC (Bld) 1.6 % High 0-1 [facility] Comment on above: Order Comment: CBCD AND CMP GOES TO [facility] ALSO. Performed By: #### L 506.1001, L100.0100 #### [facility] [address] [place], [address] Eosinophils/100 WBC (Bld) 2.0 % Normal 0-5 [facility] Comment on above: Order Comment: CBCD AND CMP GOES TO [facility] ALSO. Performed By: #### L 506.1001, L100.0100 #### [facility] [address] [place], [address] Erythrocyte distribution width (RBC) [Ratio] 13.8 % Normal 11.6-14.6 [facility] Comment on above: Order Comment: CBCD AND CMP GOES TO [facility] ALSO. Performed By: #### L 506.1001, L100.0100 #### [facility] [address] [place], [address] Hematocrit (Bld) [Volume fraction] 41.3 % Normal 37-47 [facility] Comment on above: Order Comment: CBCD AND CMP GOES TO [facility] ALSO. Performed By: #### L 506.1001, L100.0100 #### [facility] [address] [place], [address] Hemoglobin (Bld) [Mass/Vol] 13.5 g/dL Normal 12.0-15.0 [facility] Comment on above: Order Comment: CBCD AND CMP GOES TO [facility] ALSO. Performed By: #### L 506.1001, L100.0100 #### [facility] [address] [place], [address] IG% 0.300 Normal 0.0-0.9 [facility] Comment on above: Order Comment: CBCD AND CMP GOES TO [facility] ALSO. Result Comment: IG% - Immature Granulocytes (promyelocytes, myelocytes and metamyelocytes) > 1% indicates that a LEFT SHIFT is Present. Performed By: #### L 506.1001, L100.0100 #### [facility] [address] [place], [address] Lymphocytes/100 WBC (Bld) 25.3 % Normal 19-41 [facility] Comment on above: Order Comment: CBCD AND CMP GOES TO [facility] ALSO. Performed By: #### L 506.1001, L100.0100 #### [facility] [address] [place], [address] MCH (RBC) [Entitic mass] 27.4 pg Normal 27.0-32.0 [facility] Comment on above: Order Comment: CBCD AND CMP GOES TO [facility] ALSO. Performed By: #### L 506.1001, L100.0100 #### [facility] [address] [place], [address] MCHC (RBC) [Mass/Vol] 32.7 g/dL Normal 32-36 [facility] Comment on above: Order Comment: CBCD AND CMP GOES TO [facility] ALSO. Performed By: #### L 506.1001, L100.0100 #### [facility] [address] [place], [address] MCV (RBC) [Entitic vol] 83.8 fL Normal 81-99 [facility] Comment on above: Order Comment: CBCD AND CMP GOES TO [facility] ALSO. Performed By: #### L 506.1001, L100.0100 #### [facility] [address] [place], [address] Monocytes/100 WBC (Bld) 4.7 % Normal 0-10 [facility] Comment on above: Order Comment: CBCD AND CMP GOES TO [facility] ALSO. Performed By: #### L 506.1001, L100.0100 #### [facility] [address] [place], [address] Neutrophils/100 WBC (Bld) 66.1 % Normal 47-70 [facility] Comment on above: Order Comment: CBCD AND CMP GOES TO [facility] ALSO. Performed By: #### L 506.1001, L100.0100 #### [facility] [address] [place], [address] Nucleated RBC (Bld) [#/Vol] 0 10*3/uL Normal 0-5 [facility] Comment on above: Order Comment: CBCD AND CMP GOES TO [facility] ALSO. Performed By: #### L 506.1001, L100.0100 #### [facility] [address] [place], [address] Platelet mean volume (Bld) [Entitic vol] 10.8 fL Normal 6.2-12.0 [facility] Comment on above: Order Comment: CBCD AND CMP GOES TO [facility] ALSO. Performed By: #### L 506.1001, L100.0100 #### [facility] [address] [place], [address] Platelets (Bld) [#/Vol] 326 10*3/uL Normal 150-450 [facility] Comment on above: Order Comment: CBCD AND CMP GOES TO [facility] ALSO. Performed By: #### L 506.1001, L100.0100 #### [facility] [address] [place], [address] RBC (Bld) [#/Vol] 4.93 10*6/uL Normal 4.2-5.4 [facility] Comment on above: Order Comment: CBCD AND CMP GOES TO [facility] ALSO. Performed By: #### L 506.1001, L100.0100 #### [facility] [address] [place], [address] RDW SD 42.0 fl Normal 35.1-43.9 [facility] Comment on above: Order Comment: CBCD AND CMP GOES TO [facility] ALSO. Performed By: #### L 506.1001, L100.0100 #### [facility] [address] [place], [address] WBC (Bld) [#/Vol] 7.6 10*3/uL Normal 4.4-11.0 [facility] Comment on above: Order Comment: CBCD AND CMP GOES TO [facility] ALSO. Performed By: #### L 506.1001, L100.0100 #### [facility] [address] [place], [address] Comprehensive Metabolic Prof [facility] 12-05-2024 Albumin [Mass/Vol] 4.2 g/dL Normal 3.5-5.0 [facility] Comment on above: Order Comment: CBCD AND CMP GOES TO [facility] ALSO. Performed By: #### L 500.4100, L500.4050 #### [facility] [address] [place], [address] Albumin/Globulin [Mass ratio] 1.2 {ratio} Normal 0.9-2.4 [facility] Comment on above: Order Comment: CBCD AND CMP GOES TO [facility] ALSO. Performed By: #### L 500.4100, L500.4050 #### [facility] [address] [place], [address] ALK PHOS 63 U/L Normal 35-104 [facility] Comment on above: Order Comment: CBCD AND CMP GOES TO [facility] ALSO. Performed By: #### L 500.4100, L500.4050 #### [facility] [address] [place], [address] ALT [Catalytic activity/Vol] 18 U/L Normal <=34 [facility] Comment on above: Order Comment: CBCD AND CMP GOES TO [facility] ALSO. Performed By: #### L 500.4100, L500.4050 #### [facility] [address] [place], [address] AST [Catalytic activity/Vol] 19 U/L Normal <=31 [facility] Comment on above: Order Comment: CBCD AND CMP GOES TO [facility] ALSO. Performed By: #### L 500.4100, L500.4050 #### [facility] [address] [place], [address] Bilirubin [Mass/Vol] 0.26 mg/dL Normal 0.00-1.30 [facility] Comment on above: Order Comment: CBCD AND CMP GOES TO [facility] ALSO. Performed By: #### L 500.4100, L500.4050 #### [facility] [address] [place], [address] BUN/CRE 16.1 RATIO Normal 10-20 [facility] Comment on above: Order Comment: CBCD AND CMP GOES TO [facility] ALSO. Performed By: #### L 500.4100, L500.4050 #### [facility] [address] [place], [address] Calcium [Mass/Vol] 9.6 mg/dL Normal 7.6-11.0 [facility] Comment on above: Order Comment: CBCD AND CMP GOES TO [facility] ALSO. Performed By: #### L 500.4100, L500.4050 #### [facility] [address] [place], [address] Chloride [Moles/Vol] 101 mmol/L Normal 98-108 [facility] Comment on above: Order Comment: CBCD AND CMP GOES TO [facility] ALSO. Performed By: #### L 500.4100, L500.4050 #### [facility] [address] [place], [address] CO2 [Moles/Vol] 25.6 mmol/L Normal 21.0-32.0 [facility] Comment on above: Order Comment: CBCD AND CMP GOES TO [facility] ALSO. Performed By: #### L 500.4100, L500.4050 #### [facility] [address] [place], [address] Creatinine [Mass/Vol] 0.99 mg/dL Normal 0.70-1.20 [facility] Comment on above: Order Comment: CBCD AND CMP GOES TO [facility] ALSO. Performed By: #### L 500.4100, L500.4050 #### [facility] [address] [place], [address] GAP 13 Normal 5-15 [facility] Comment on above: Order Comment: CBCD AND CMP GOES TO [facility] ALSO. Performed By: #### L 500.4100, L500.4050 #### [facility] [address] [place], [address] GFR/1.73 sq M.predicted among non-blacks MDRD (S/P/Bld) [Vol rate/Area] 68 mL/min/{1.73_m2} Normal >60 [facility] Comment on above: Order Comment: CBCD AND CMP GOES TO [facility] ALSO. Result Comment: mL/m in/1.73m2 CKD-EPI Creatinine Equation (2020) Performed By: #### L 500.4100, L500.4050 #### [facility] [address] [place], [address] Globulin (S) [Mass/Vol] 3.5 g/dL Normal 2.2-4.2 [facility] Comment on above: Order Comment: CBCD AND CMP GOES TO [facility] ALSO. Performed By: #### L 500.4100, L500.4050 #### [facility] [address] [place], [address] Glucose [Mass/Vol] 94 mg/dL Normal 70-99 [facility] Comment on above: Order Comment: CBCD AND CMP GOES TO [facility] ALSO. Performed By: #### L 500.4100, L500.4050 #### [facility] [address] [place], [address] Potassium [Moles/Vol] 4.2 mmol/L Normal 3.3-5.1 [facility] Comment on above: Order Comment: CBCD AND CMP GOES TO [facility] ALSO. Performed By: #### L 500.4100, L500.4050 #### [facility] [address] [place], [address] Sodium [Moles/Vol] 139 mmol/L Normal 133-145 [facility] Comment on above: Order Comment: CBCD AND CMP GOES TO [facility] ALSO. Performed By: #### L 500.4100, L500.4050 #### [facility] [address] [place], [address] T PROT 7.6 g/dL Normal 5.9-8.4 [facility] Comment on above: Order Comment: CBCD AND CMP GOES TO [facility] ALSO. Performed By: #### L 500.4100, L500.4050 #### [facility] [address] [place], [address] Urea nitrogen [Mass/Vol] 16 mg/dL Normal 4-19 [facility] Comment on above: Order Comment: CBCD AND CMP GOES TO [facility] ALSO. Performed By: #### L 500.4100, L500.4050 #### [facility] [address] [place], [address] Hemoglobin A1con 12-05-2024 HbA1c (Bld) [Mass fraction] 5.3 % Normal <=5.6 [facility] Comment on above: Result Comment: Norm al < 5.7 % Prediabetic 5.7 - 6.4 % Diabetic >or= 6.5 % Please note range changes. Performed By: #### B TSPAT, L501.9985, M100.651 ####[facility] [address] [place], [address] Lipid Profileon 12-05-2024 CHOL:HDL 2.70 Normal [facility] Comment on above: Order Comment: CBCD AND CMP GOES TO [facility] ALSO. Performed By: #### L 500.4100, L500.4050 #### [facility] [address] [place], [address] Cholesterol [Mass/Vol] 173 mg/dL Normal <=200 [facility] Comment on above: Order Comment: CBCD AND CMP GOES TO [facility] ALSO. Result Comment: Chol esterol level, Desirable <200 mg/dL Borderline high cholesterol 200-239 mg/dL High cholesterol >=240 mg/dL Recommendations of the NCEP Adult Treatment Panel for the following risk-cutoff thresholds for the [place] population. Performed By: #### L 500.4100, L500.4050 #### [facility] [address] [place], [address] Cholesterol in HDL [Mass/Vol] 64 mg/dL Normal [facility] Comment on above: Order Comment: CBCD AND CMP GOES TO [facility] ALSO. Result Comment: Deana onal Cholesterol Education Program (NCEP) guidelines: <40 mg/dL: Low HDL-cholesterol (major risk factor for CHD) >= 60 mg/dL: High HDL-cholesterol (negative risk factor for CHD) HDL-cholesterol is affected by a number of factors, e.g. smoking, exercise, hormones, sex and age. Performed By: #### L 500.4100, L500.4050 #### [facility] [address] [place], [address] Cholesterol in LDL [Mass/Vol] 84 mg/dL Normal [facility] Comment on above: Order Comment: [facility] Result Comment: Bord gunkzo=745-618 mg/dL Higher Uwsx=343 mg/dL or greater Friedwald Equation for LDL-C Performed By: #### L 500.4100, L500.4050 #### [facility] [address] [place], [address] Cholesterol in VLDL [Mass/Vol] 25 mg/dL Normal 5-40 [facility] Comment on above: Order Comment: [facility]MP [facility]. Performed By: #### L 500.4100, L500.4050 #### [facility] [address] [place], [address] Triglyceride [Mass/Vol] 124 mg/dL Normal [facility] Comment on above: Order Comment: CBCD AND CMP GOES TO [facility] ALSO. Result Comment: The drugs N-Acetylcysteine and Metamizole may falsely depress this assay. Normal range: <150 mg/dL Borderline High: 150-199 mg/dL High: 200-499 mg/dL Very High: >500 mg/dL Performed By: #### L 500.4100, L500.4050 #### [facility] [address] [place], [address] Magnesiumon 12-05-2024 Magnesium [Mass/Vol] 2.6 mg/dL High 1.5-2.2 [facility] Comment on above: Performed By: #### L 501.5200 #### [facility] [address] [place], [address] Type AND Screen - PAT ONLYon 12-05-2024 Ab SCREEN GEL Negative Normal [facility] Comment on above: Order Comment: Surge ry Date: 12/18/24Reason for Laboratory Test PRE-[id number] Cervical Fusion C4-5 and C5-6 Performed By: #### B TSPAT, L501.9985, M100.651 ####[facility] [address] [place], [address] Vitamin D,25 Hydroxyon 12-05 Vitamin D 25-OH 21.9 ng/mL Low 30-100 [facility] Comment on above: Order Comment: CBCD AND CMP GOES TO [facility] ALSO. Result Comment: Kathi min D Status Deficiency: <20 ng/mL (50nmol/L) Insufficiency: 20-30 ng/mL (50-75 nmol/L) Sufficiency: 30-100 ng/mL (75-250 nmol/L) Toxicity: >100 ng/mL (>250 nmol/L) Performed By: #### L 506.1001, L100.0100 #### [facility] [address] [place], [address] Quantiferon TB-Gold+on 09-17 QFT MITOGEN SETH > 10.00 Normal . [facility] Comment on above: Order Comment: [facility] ORDERED QFTDR. [facility] ORDERED CMP CBCD Performed By: #### L 100.0100, L3400.8000, L500.4050 ####[facility] [address] [place], [address] QFT NIL VALUE 0.07 IU/mL Normal . [facility] Comment on above: Order Comment: [facility] ORDERED [facility]FTDR. [facility] CMP CBCD Performed By: #### L 100.0100, L3400.8000, L500.4050 ####[facility] [address] [place], [address] QFT TB GOLD+ Comment Normal . [facility] Comment on above: Order Comment: [facility] ORDERED QFTDR. [facility] ORDERED CMP CBCD Result Comment: Cody tiFERON-TB Gold Plus is a qualitative indirect test for M tuberculosis infection (including disease) and is intended for use in conjunction with risk assessment, radiography, and other medical and diagnostic evaluations. The QuantiFERON-TB Gold Plus result is determined by subtracting the Nil value from either TB antigen (Ag) value. The Mitogen tube serves as a control for the test. Performed By: #### L 100.0100, L3400.8000, L500.4050 ####[facility] [address] [place], [address] QFT TB POS CRIT Negative Normal Negative [facility] Comment on above: Order Comment: [facility] ORDERED QFTDR. [facility] CMP CBCD Result Comment: No r esponse to M tuberculosis antigens detected. Infection with M tuberculosis is unlikely, but high risk individuals should be considered for additional testing (ATS/IDSA/CDC Clinical Practice Guidelines, 2017). The reference range is an Antigen minus Nil result of <0.35 IU/mL. The specimen received for QuantiFERON testing was incubated by the ordering institution. Specific procedures outlined in our Directory of Services and in the package insert for the QuantiFERON Gold (In Tube) test must be followed to enable for proper stimulation of cells for the production of interferon gamma. Chemiluminescence immunoassay methodology Performed at: [facility] [employer] [address] [id number] Detective Investigator: Mat Marcos PhD, Phone: [phone] Performed By: #### L 100.0100, L3400.8000, L500.4050 ####[facility] [address] [place], [address] QFT TB1+ AG SETH 0.08 IU/mL Normal . [facility] Comment on above: Order Comment: [facility] ORDERED QFTDR. [facility] ORDERED CMP CBCD Performed By: #### L 100.0100, L3400.8000, L500.4050 ####[facility] [address] [place], [address] QFT TB2+ AG SETH 0.08 IU/mL Normal . [facility] Comment on above: Order Comment: [facility] ORDERED QFTDR. [facility] ORDERED CMP CBCD Performed By: #### L 100.0100, L3400.8000, L500.4050 ####[facility] [address] [place], [address] Absolute lymphocyte countOrd ered By: Aurea Pritchard on 09-13-2024 Lymphocytes Auto (Unsp spec) [#/Vol] 2.24 10*3/uL 0.83-4.51 [facility] Absolute neutrophil countOrd ered By: Aurea Pritchard on 09-13-2024 Neutrophils (Bld) [#/Vol] 7.4 10*3/uL 2.0-7.7 [facility] Anion gap in Serum or Plasma Ordered By: Aurea Pritchard on 09-13-2024 Anion gap [Moles/Vol] 12 mmol/L 5-15 [facility] Automated lymphocyte count a s percentage of total leukocytesOrdered By: Aurearaymond Pritchard on 09-13-2024 Lymphocytes/100 WBC Auto (Unsp spec) 21.1 % 19-41 [facility] BUN/creatinine ratioOrdered By: [facility] Urea nitrogen/Creatinine [Mass ratio] 16.1 mg/mg 10-20 [facility] Basophil percentageOrdered B y: Aurea Pritchard on 09-13-2024 Basophils/100 WBC (Bld) 0.8 % 0-1 [facility] Bilirubin, totalOrdered By: Aurea Pritchard on 09-13-2024 Bilirubin [Mass/Vol] 0.26 mg/dL 0.00-1.30 [facility] CBC W/Diff, Automatedon 09-01 Absolute Lymph 2.24 X10 3/uL Normal 0.83-4.51 [facility] Comment on above: Order Comment: [facility] ORDERED QFTDR. [facility] ORDERED CMP CBCD Performed By: #### L 100.0100, L3400.8000, L500.4050 ####[facility] [address] [place], [address] Absolute Neut 7.4 X10 3/uL Normal 2.0-7.7 [facility] Comment on above: Order Comment: [facility] ORDERED QFTDR. [facility] ORDERED CMP CBCD Performed By: #### L 100.0100, L3400.8000, L500.4050 ####[facility] [address] [place], [address] Basophils/100 WBC (Bld) 0.8 % Normal 0-1 [facility] Comment on above: Order Comment: [facility] ORDERED QFTDR. [facility] ORDERED CMP CBCD Performed By: #### L 100.0100, L3400.8000, L500.4050 ####[facility] [address] [place], [address] Eosinophils/100 WBC (Bld) 1.2 % Normal 0-5 [facility] Comment on above: Order Comment: [facility] ORDERED QFTDR. [facility] ORDERED CMP CBCD Performed By: #### L 100.0100, L3400.8000, L500.4050 ####[facility] [address] [place], [address] Erythrocyte distribution width (RBC) [Ratio] 14.3 % Normal 11.6-14.6 [facility] Comment on above: Order Comment: [facility] ORDERED QFTDR. [facility] ORDERED CMP CBCD Performed By: #### L 100.0100, L3400.8000, L500.4050 ####[facility] [address] [place], [address] Hematocrit (Bld) [Volume fraction] 36.8 % Low 37-47 [facility] Comment on above: Order Comment: [facility] ORDERED QFTDR. [facility] ORDERED CMP CBCD Performed By: #### L 100.0100, L3400.8000, L500.4050 ####[facility] [address] [place], [address] Hemoglobin (Bld) [Mass/Vol] 11.9 g/dL Low 12.0-15.0 [facility] Comment on above: Order Comment: [facility] ORDERED QFTDR. [facility] ORDERED CMP CBCD Performed By: #### L 100.0100, L3400.8000, L500.4050 ####[facility] [address] [place], [address] IG% 0.500 Normal 0.0-0.9 [facility] Comment on above: Order Comment: [facility] ORDERED QFTDR. [facility] ORDERED CMP CBCD Result Comment: IG% - Immature Granulocytes (promyelocytes, myelocytes and metamyelocytes) > 1% indicates that a LEFT SHIFT is Present. Performed By: #### L 100.0100, L3400.8000, L500.4050 ####[facility] [address] [place], [address] Lymphocytes/100 WBC (Bld) 21.1 % Normal 19-41 [facility] Comment on above: Order Comment: [facility] ORDERED QFTDR. [facility] ORDERED CMP CBCD Performed By: #### L 100.0100, L3400.8000, L500.4050 ####[facility] [address] [place], [address] MCH (RBC) [Entitic mass] 27.4 pg Normal 27.0-32.0 [facility] Comment on above: Order Comment: [facility] ORDERED QFTDR. [facility] ORDERED CMP CBCD Performed By: #### L 100.0100, L3400.8000, L500.4050 ####[facility] [address] [place], [address] MCHC (RBC) [Mass/Vol] 32.3 g/dL Normal 32-36 [facility] Comment on above: Order Comment: [facility] ORDERED QFTDR. [facility] ORDERED CMP CBCD Performed By: #### L 100.0100, L3400.8000, L500.4050 ####[facility] [address] [place], [address] MCV (RBC) [Entitic vol] 84.6 fL Normal 81-99 [facility] Comment on above: Order Comment: [facility] ORDERED QFTDR. [facility] ORDERED CMP CBCD Performed By: #### L 100.0100, L3400.8000, L500.4050 ####[facility] [address] [place], [address] Monocytes/100 WBC (Bld) 6.4 % Normal 0-10 [facility] Comment on above: Order Comment: [facility] ORDERED QFTDR. [facility] ORDERED CMP CBCD Performed By: #### L 100.0100, L3400.8000, L500.4050 ####[facility] [address] [place], [address] Neutrophils/100 WBC (Bld) 70.0 % Normal 47-70 [facility] Comment on above: Order Comment: [facility] ORDERED QFTDR. [facility] ORDERED CMP CBCD Performed By: #### L 100.0100, L3400.8000, L500.4050 ####[facility] [address] [place], [address] Nucleated RBC (Bld) [#/Vol] 0 10*3/uL Normal 0-5 [facility] Comment on above: Order Comment: [facility] ORDERED QFTDR. [facility] ORDERED CMP CBCD Performed By: #### L 100.0100, L3400.8000, L500.4050 ####[facility] [address] [place], [address] Platelet mean volume (Bld) [Entitic vol] 10.6 fL Normal 6.2-12.0 [facility] Comment on above: Order Comment: [facility] ORDERED QFTDR. [facility] ORDERED CMP CBCD Performed By: #### L 100.0100, L3400.8000, L500.4050 ####[facility] [address] [place], [address] Platelets (Bld) [#/Vol] 348 10*3/uL Normal 150-450 [facility] Comment on above: Order Comment: [facility] ORDERED QFTDR. [facility] ORDERED CMP CBCD Performed By: #### L 100.0100, L3400.8000, L500.4050 ####[facility] [address] [place], [address] RBC (Bld) [#/Vol] 4.35 10*6/uL Normal 4.2-5.4 [facility] Comment on above: Order Comment: [facility] ORDERED QFTDR. [facility] ORDERED CMP CBCD Performed By: #### L 100.0100, L3400.8000, L500.4050 ####[facility] [address] [place], [address] RDW SD 43.2 fl Normal 35.1-43.9 [facility] Comment on above: Order Comment: [facility] ORDERED QFTDR. [facility] ORDERED CMP CBCD Performed By: #### L 100.0100, L3400.8000, L500.4050 ####[facility] [address] [place], [address] WBC (Bld) [#/Vol] 10.6 10*3/uL Normal 4.4-11.0 [facility] Comment on above: Order Comment: [facility] ORDERED QFTDR. [facility] ORDERED CMP CBCD Performed By: #### L 100.0100, L3400.8000, L500.4050 ####[facility] [address] [place], [address] Carbon dioxide, total [Moles /volume] in Central venous bloodOrdered By: Aurea Pritchard on 09-13-2024 CO2 [Moles/Vol] 25.0 mmol/L 21.0-32.0 [facility] Chloride assayOrdered By: Harsh Pritchard on 09-13-2024 Chloride [Moles/Vol] 103 mmol/L 98-108 [facility] Comprehensive Metabolic Prof ilon 09-13-2024 Albumin [Mass/Vol] 4.0 g/dL Normal 3.5-5.0 [facility] Comment on above: Order Comment: [facility] ORDERED QFTDR. [facility] ORDERED CMP CBCDC Performed By: #### L 100.0100, L3400.8000, L500.4050 ####[facility] [address] [place], [address] Albumin/Globulin [Mass ratio] 1.3 {ratio} Normal 0.9-2.4 [facility] Comment on above: Order Comment: [facility] ORDERED QFTDR. [facility] ORDERED CMP CBCDC Performed By: #### L 100.0100, L3400.8000, L500.4050 ####[facility] [address] [place], [address] ALK PHOS 55 U/L Normal 35-104 [facility] Comment on above: Order Comment: [facility] ORDERED QFTDR. [facility] ORDERED CMP CBCDC Performed By: #### L 100.0100, L3400.8000, L500.4050 ####[facility] [address] [place], [address] ALT [Catalytic activity/Vol] 18 U/L Normal <=34 [facility] Comment on above: Order Comment: [facility] ORDERED QFTDR. [facility] ORDERED CMP CBCDC Performed By: #### L 100.0100, L3400.8000, L500.4050 ####[facility] [address] [place], [address] AST [Catalytic activity/Vol] 15 U/L Normal <=31 [facility] Comment on above: Order Comment: [facility] ORDERED QFTDR. [facility] ORDERED CMP CBCDC Performed By: #### L 100.0100, L3400.8000, L500.4050 ####[facility] [address] [place], [address] Bilirubin [Mass/Vol] 0.26 mg/dL Normal 0.00-1.30 [facility] Comment on above: Order Comment: [facility] ORDERED QFTDR. [facility] ORDERED CMP CBCDC Performed By: #### L 100.0100, L3400.8000, L500.4050 ####[facility] [address] [place], [address] BUN/CRE 16.1 RATIO Normal 10-20 [facility] Comment on above: Order Comment: [facility] ORDERED QFTDR. [facility] ORDERED CMP CBCDC Performed By: #### L 100.0100, L3400.8000, L500.4050 ####[facility] [address] [place], [address] Calcium [Mass/Vol] 9.3 mg/dL Normal 7.6-11.0 [facility] Comment on above: Order Comment: [facility] ORDERED QFTDR. [facility] ORDERED CMP CBCDC Performed By: #### L 100.0100, L3400.8000, L500.4050 ####[facility] [address] [place], [address] Chloride [Moles/Vol] 103 mmol/L Normal 98-108 [facility] Comment on above: Order Comment: [facility] ORDERED QFTDR. [facility] ORDERED CMP CBCDC Performed By: #### L 100.0100, L3400.8000, L500.4050 ####[facility] [address] [place], [address] CO2 [Moles/Vol] 25.0 mmol/L Normal 21.0-32.0 [facility] Comment on above: Order Comment: [facility] ORDERED QFTDR. [facility] ORDERED CMP CBCDC Performed By: #### L 100.0100, L3400.8000, L500.4050 ####[facility] [address] [place], [address] Creatinine [Mass/Vol] 0.84 mg/dL Normal 0.70-1.20 [facility] Comment on above: Order Comment: [facility] ORDERED QFTDR. [facility] ORDERED CMP CBCDC Performed By: #### L 100.0100, L3400.8000, L500.4050 ####[facility] [address] [place], [address] GAP 12 Normal 5-15 [facility] Comment on above: Order Comment: [facility] ORDERED QFTDR. [facility] ORDERED CMP CBCDC Performed By: #### L 100.0100, L3400.8000, L500.4050 ####[facility] [address] [place], [address] GFR/1.73 sq M.predicted among non-blacks MDRD (S/P/Bld) [Vol rate/Area] 83 mL/min/{1.73_m2} Normal >60 [facility] Comment on above: Order Comment: [facility] ORDERED QFTDR. [facility] ORDERED CMP CBCDC Result Comment: mL/m in/1.73m2 CKD-EPI Creatinine Equation (2020) Performed By: #### L 100.0100, L3400.8000, L500.4050 ####[facility] [address] [place], [address] Globulin (S) [Mass/Vol] 3.0 g/dL Normal 2.2-4.2 [facility] Comment on above: Order Comment: [facility] ORDERED QFTDR. [facility] ORDERED CMP CBCDC Performed By: #### L 100.0100, L3400.8000, L500.4050 ####[facility] [address] [place], [address] Glucose [Mass/Vol] 91 mg/dL Normal 70-99 [facility] Comment on above: Order Comment: [facility] ORDERED QFTDR. [facility] ORDERED CMP CBCDC Performed By: #### L 100.0100, L3400.8000, L500.4050 ####[facility] [address] [place], [address] Potassium [Moles/Vol] 3.8 mmol/L Normal 3.3-5.1 [facility] Comment on above: Order Comment: [facility] ORDERED QFTDR. [facility] ORDERED CMP CBCDC Performed By: #### L 100.0100, L3400.8000, L500.4050 ####[facility] [address] [place], [address] Sodium [Moles/Vol] 140 mmol/L Normal 133-145 [facility] Comment on above: Order Comment: [facility] ORDERED QFTDR. [facility] ORDERED CMP CBCDC Performed By: #### L 100.0100, L3400.8000, L500.4050 ####[facility] [address] [place], [address] T PROT 7.1 g/dL Normal 5.9-8.4 [facility] Comment on above: Order Comment: [facility] ORDERED QFTDR. [facility] ORDERED CMP CBCDC Performed By: #### L 100.0100, L3400.8000, L500.4050 ####[facility] [address] [place], [address] Urea nitrogen [Mass/Vol] 14 mg/dL Normal 4-19 [facility] Comment on above: Order Comment: [facility] ORDERED QFTDR. [facility] ORDERED CMP CBCDC Performed By: #### L 100.0100, L3400.8000, L500.4050 ####[facility] [address] [place], [address] Eosinophil percentageOrdered By: Aurea Pritchard on 09-13-2024 Eosinophils/100 WBC (Bld) 1.2 % 0-5 [facility] Erythrocyte distribution wid th ratioOrdered By: Aurea Pritchard on 09-13-2024 Erythrocyte distribution width (RBC) [Ratio] 14.3 % 11.6-14.6 [facility] Erythrocyte distribution wid th standard deviationOrdered By: Aurea Pritchard on 09-13-2024 Erythrocyte distribution width (RBC) [Ratio] 43.2 fl 35.1-43.9 [facility] Glomerular filtration rate ( GFR) estimation/1.73 sq m using serum, plasma, or whole bOrdered By: Aurea Pritchard on 09-13-2024 GFR/1.73 sq M.predicted among non-blacks MDRD (S/P/Bld) [Vol rate/Area] 83 mL/min/{1.73_m2} >60 [facility] Comment on above: mL/min/1.73m2 CKD-EP I Creatinine Equation (2020) Hematocrit Auto (Bld) [Volum e fraction]Ordered By: Aurea Pritchard on 09-13-2024 Hematocrit (Bld) [Volume fraction] 36.8 % Low 37-47 [facility] Hemoglobin measurementOrdere d By: Aurea Pritchard on 09-13-2024 Hemoglobin (Bld) [Mass/Vol] 11.9 g/dL Low 12.0-15.0 [facility] Immature granulocytes/100 WB C Auto (Bld)Ordered By: Aurea Pritchard 09-13-2024 Immature granulocytes/100 WBC (Bld) 0.500 % 0.0-0.9 [facility] Comment on above: IG% - Immature Granu locytes (promyelocytes, myelocytes and metamyelocytes) > 1% indicates that a LEFT SHIFT is Present. Laboratory - Chemistry and C hemistry - challengeOrdered By: Auera Pritchard on 09-13-2024 AST [Catalytic activity/Vol] 15 U/L <32 [facility] MCV (mean corpuscular volume ) determinationOrdered By: Aurea Pritchard 09-13-2024 MCV (RBC) [Entitic vol] 84.6 fL 81-99 [facility] Mean corpuscular hemoglobin (MCH) determinationOrdered By: Aurea Pritchard 09-13-2024 MCH (RBC) [Entitic mass] 27.4 pg 27.0-32.0 [facility] Mean corpuscular hemoglobin concentration (MCHC) determinationOrdered By: Aurea Pritchard on 09-13-2024 MCHC (RBC) [Mass/Vol] 32.3 g/dL 32-36 [facility] Mean platelet volume determi nationOrdered By: Aurea Pritchard on 09-13-2024 Platelet mean volume (Bld) [Entitic vol] 10.6 fL 6.2-12.0 [facility] Monocyte percentageOrdered B y: Aurea Pritchard on 09-13-2024 Monocytes/100 WBC (Bld) 6.4 % 0-10 [facility] Neutrophil percentageOrdered By: [facility] on 09-13-2024 Neutrophils/100 WBC (Bld) 70.0 % 47-70 [facility] Nucleated red blood cell per centageOrdered By: [facility] on 09-13-2024 Nucleated RBC/100 WBC (Bld) [Ratio] 0 % 0-5 [facility] Orthopedic Visit Reporton Orthopedic Visit Report [facility] [address] [place] [address] 5 [place] [address] OFFICE VISIT Date of Service: 09/13/24 MR#: [id number] Acct: [id number] Name: ANUPAM BOBBY Rep #: [id number] : 1970 Provider: HARSH Hartman Age/Sex: 54/F Location: [facility] Status: Signed Intake Vital Signs 07/26/24 14:28 Height 5 ft 5 in Intake Visit Reasons: CERVICAL SPINE Chief Complaint: MRI Review Accompanied by: Self Is patient in pain?: Yes Pain scale (1-10): 4 Allergies amoxicillin Adverse Reaction (Severe, Verified 09/13/24 08:07) Rash Medications ???Medication ???Instructions ???Recorded ???Confirmed ???Type atenolol 50 mg tablet 50 mg PO DAILY 07/12/22 09/13/24 H istory meloxicam 15 mg tablet 15 mg PO DAILY PRN 07/12/22 History metformin 500 mg tablet,extended 500 mg PO DAILY 07/12/22 09/13/24 History release 24 hr tramadol 50 mg tablet 50 mg PO TID PRN 07/12/22 09/13/24 History duloxetine 60 mg capsule,delayed See Rx Instructions PO .COMPLEX 09/13/24 Rx release #60 caps ixekizumab 80 mg/mL subcutaneous mg subcut 09/13/24 09/13/24 Histor y auto-injector (Taltz Autoinjector) lisinopril 20 mg tablet 20 mg PO QDAY 09/13/24 09/13/24 Hi story PFSH Medical History Psoriasis Hypertension Diabetes mellitus Polyneuropathy Surgical History History of back surgery Family History Mother Heart disease Hypertension Thyroid disorder Father Heart disease Hypertension Sister Hypertension Thyroid disorder Social History Smoking Status: Former smoker Tobacco: How many years used: 20 second hand exposure: No details: occasionally substance use type: does not use what type of physical activity do you participate in: none caesy/yazidi: Judaism seatbelt use: always HPI CERVICAL SPINE Details: This documentation accurately reflects the service provided and the decisions made by me, HARSH Hartman 09/13/24 0800. Part of today???s visit was documented by Janki Champion ATC, acting as scribe. ANUPAM BOBBY is a 54 year old F here today for MRI review of the cervical spine. Patient states her neck pain has worsened since her last visit. She denies any recent injections or treatment. Patient is prescribed meloxicam and tramadol PRN for the pain and she will occasionally take Excedrin as well. Last a1c was 5.3, no blood thinners, no heart or lung issues. She continues to have a right sided arm pain that extends down from the right side of her neck to her right elbow. 07/26/2024: ANUPAM BOBBY is a 54 year old F here today for cervical spine pain. Patient is having pain in the back of her neck. The pain goes down the right biceps area. She does get numbness in tingling in the right upper arm. This has been going on for at least a year worsening over the last several months with radiculopathy symptoms starting over the last couple of weeks. Patient woke up one day and it just started hurting she denies any trauma or injuries. Her pain extends down the right side of her neck to her right shoulder and to her right bicep and is described as a tingling burning pain. Denies any pain that extends below the elbow. Denies any left sided involvement. Patient sees Dr. Lacy for psoriatic arthritis and takes methotrexate and Taltz which is a monoclonal antibody injection. Patient goes to her every 3 months. Patient has had a laminectomy at L5-S1 followed by 2 other surgeries to stop a spinal cord fluid leak, those were in 2008. Dr. Padilla did 2 of the back surgeries, and Dr Spence did the 3rd back surgery. When she leans over her neck starts to hurt really bad. 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 The pain comes and goes. Patient has been doing physical therapy at home for exercise. Her heating pad helps a little bit. Denies any balance or dexterity issues. Hx of diabetes last a1c was 5.3, no heart or lung issues, no blood thinners. Takes Mobic which is helpful. 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 Normal sensation across all dermatomes. There is brisk right knee reflexes. Swathi's negative. No midline tenderness and mild right paraspinal tenderness. Coding (more content not included)... Normal [facility] Platelet countOrdered By: Harsh Pritchard on 09-13-2024 Platelets (Bld) [#/Vol] 348 10*3/uL 150-450 [facility] Potassium measurement (mass/ volume)Ordered By: Aurea Pritchard on 09-13-2024 Potassium (Unsp spec) [Mass/Vol] 3.8 mmol/L 3.3-5.1 [facility] Qualitative QuantiFERON-TB g old in tube testOrdered By: Aurea Pritchard on 09-13-2024 M. tuberculosis tuberculin stim IFN-g Ql (Bld) 0.08 IU/mL . [facility] RBC Auto (Bld) [#/Vol]Ordere d By: Aurea Pritchard on 09-13-2024 RBC (Bld) [#/Vol] 4.35 10*6/uL 4.2-5.4 [facility] Serum creatinine measurement (mass/volume)Ordered By: Aurea Pritchard on 09-13-2024 Creatinine [Mass/Vol] 0.84 mg/dL 0.70-1.20 [facility] Serum globulin measurementOr dered By: Aurea Pritchard on 09-13-2024 Globulin (S) [Mass/Vol] 3.0 g/dL 2.2-4.2 [facility] Serum glucose measurement (m ass/volume)Ordered By: Aurea Pritchard on 09-13-2024 Glucose [Mass/Vol] 91 mg/dL 70-99 [facility] Serum or plasma alanine vinson otransferase (ALT) measurementOrdered By: Aurea Pritchard on 09-13-2024 ALT [Catalytic activity/Vol] 18 U/L <35 [facility] Serum or plasma albumin brittanie urement (mass/volume)Ordered By: Aurea Pritchard on 09-13-2024 Albumin [Mass/Vol] 4.0 g/dL 3.5-5.0 [facility] Serum or plasma albumin/glob ulin mass ratioOrdered By: Aurea Pritchard 09-13-2024 Albumin/Globulin [Mass ratio] 1.3 {ratio} 0.9-2.4 [facility] Serum or plasma alkaline marielle sphatase measurementOrdered By: Aurea Pritchard on 09-13-2024 ALP [Catalytic activity/Vol] 55 U/L 35-104 [facility] Serum or plasma calcium brittanie urement (mass/volume)Ordered By: Aurea Pritchard on 09-13-2024 Calcium [Mass/Vol] 9.3 mg/dL 7.6-11.0 [facility] Serum or plasma urea nitroge n measurement (mass/volume)Ordered By: Aurea Pritchard on 09-13-2024 Urea nitrogen [Mass/Vol] 14 mg/dL 4-19 [facility] Sodium levelOrdered By: Yolie Pritchard on 09-13-2024 Sodium [Moles/Vol] 140 mmol/L 133-145 [facility] Total proteinOrdered By: Ramin Pritchard on 09-13-2024 Protein [Mass/Vol] 7.1 g/dL 5.9-8.4 [facility] White blood cell (WBC) count Ordered By: Aurea Pritchard on 09-13-2024 WBC (Bld) [#/Vol] 10.6 10*3/uL 4.4-11.0 [facility] Magnetic resonance imaging r eportOrdered By: Dakota Pacheco on 09-11-2024 Study report [facility] Imaging Services [address] [place] [address] Spine Cervical (Routine) MR#: [id number] Acct: [id number] Name: ANUPAM BOBBY Rep #: [id number] : 1970 F 54 From: Lisbeth Pacheco MD PCP: Dr. Reta Thao MD Status: REG CL I Study:Spine Cervical (Routine) Date of Exam: 09/10/24 Exam# [id number] Ordering Dr: Luis Singh PROCEDURE: SPINE CERVICAL (ROUTINE) 09/10/2024 REASON FOR EXAM: PAIN, HYPERREFLEXIA TECHNIQUE: Multiplanar and multisequence images were obtained without IV contrast administration. COMPARISON: Radiographs on 07/26/2024. FINDINGS: Moderate diffuse spondylosis. Moderate multilevel degenerative disc disease. There is normal signal intensity from the visualized bone marrow without evidence of replacement or acute fracture. The visualized portions of the spinal cord are unremarkable. The visualized portions of the posterior fossa are unremarkable. There is reversal of the cervical lordosis, probably muscular spasm and pain. Evaluation of the individual levels revealed the following: C2-C3: There is grade 1 anterolisthesis measuring 2.4 mm with mild diffuse disc bulge. The spinal canal is not narrowed. There is mild bilateral neural foramina narrowing. C3-C4: There is grade 1 anterolisthesis measuring 3.3 mm with mild diffuse disc bulge. The spinal canal is not narrowed. There is minimal bilateral neural foramina narrowing. C4-C5: There is grade 1 retrolisthesis measuring 4.5 mm. Moderate diffuse disc bulge. Superimposed central/right paracentral disc extrusion measuring 1.2 x 0.5 cm in its largest craniocaudal and anteroposterior dimensions respectively. Caudal subligamentous slippage of the herniated disc without sequestration. The spinalcanal is moderately narrowed. There is severe right and moderate left neural foramina narrowing. C5-C6: There is moderate diffuse disc bulge. Superimposed broad-based left posterolateral disc protrusion measuring 4.5 mm. The spinal canal is mildly narrowed. There is moderate bilateral neural foramina narrowing. C6-C7: There is mild diffuse disc bulge. The spinal canal is not narrowed. There is mild bilateral neural foramina narrowing. C7-T1: There is mild diffuse disc bulge. The spinal canal is not narrowed. There is mild bilateral neural foramina narrowing. MRI/Spine Cervical (Routine) IMPRESSION: Spondylosis. Degenerative disc disease. Reading Location: [place] [address] CC: HARSH Hartman; Dr. Reta Thao MD ~ Product Safety And Standards Engineer: Signed [facility] Spine Cervical (Routine)on 0 09-10-2024 Spine Cervical (Routine) [facility] Imaging Services [address] [place] [address] Spine Cervical (Routine) MR#: [id number] Acct: [id number] Name: ANUPAM BOBBY Rep #: [id number] : 1970 F 54 From: Dakota aragon MD PCP: Dr. Reta Thao MD Status: REG CLI Study: Spine Cervical (Routine) Date of Exam: Exam# [id number] Ordering Dr: Sagrario Singh PROCEDURE: SPINE CERVICAL (ROUTINE) 09/10/2024 REASON FOR EXAM: PAIN, HYPERREFLEXIA TECHNIQUE: Multiplanar and multisequence images were obtained without IV contrast administration. COMPARISON: Radiographs on 07/26/2024. FINDINGS: Moderate diffuse spondylosis. Moderate multilevel degenerative disc disease. There is normal signal intensity from the visualized bone marrow without evidence of replacement or acute fracture. The visualized portions of the spinal cord are unremarkable. The visualized portions of the posterior fossa are unremarkable. There is reversal of the cervical lordosis, probably muscular spasm and pain. Evaluation of the individual levels revealed the following: C2-C3: There is grade 1 anterolisthesis measuring 2.4 mm with mild diffuse disc bulge. The spinal canal is not narrowed. There is mild bilateral neural foramina narrowing. C3-C4: There is grade 1 anterolisthesis measuring 3.3 mm with mild diffuse disc bulge. The spinal canal is not narrowed. There is minimal bilateral neural foramina narrowing. C4-C5: There is grade 1 retrolisthesis measuring 4.5 mm. Moderate diffuse disc bulge. Superimposed central/right paracentral disc extrusion measuring 1.2 x 0.5 cm in its largest craniocaudal and anteroposterior dimensions respectively. Caudal subligamentous slippage of the herniated disc without sequestration. The spinal canal is moderately narrowed. There is severe right and moderate left neural foramina narrowing. C5-C6: There is moderate diffuse disc bulge. Superimposed broad-based left posterolateral disc protrusion measuring 4.5 mm. The spinal canal is mildly narrowed. There is moderate bilateral neural foramina narrowing. C6-C7: There is mild diffuse disc bulge. The spinal canal is not narrowed. There is mild bilateral neural foramina narrowing. C7-T1: There is mild diffuse disc bulge. The spinal canal is not narrowed. There is mild bilateral neural foramina narrowing. MRI/Spine Cervical (Routine) IMPRESSION: Spondylosis. Degenerative disc disease. Reading Location: [place] [address] CC: HARSH Hartman; Dr. Reta Thao MD Product Safety And Standards Engineer: Signed Normal [facility] Quantiferon TB-Gold+on 08-08 QFT MITOGEN SETH Normal [facility] Comment on above: Result Comment: UTO- PT WILL COME BACK DIFFERENT DAY Performed By: #### L 3400.8000 #### [facility] [place], [address] QFT NIL VALUE Normal [facility] Comment on above: Result Comment: UTO- PT WILL COME BACK DIFFERENT DAY Performed By: #### L 3400.8000 #### [facility] [address] [place], [address] QFT TB GOLD+ Normal [facility] Comment on above: Result Comment: UTO- PT WILL COME BACK DIFFERENT DAY Performed By: #### L 3400.8000 #### [facility] [address] [place], [address] QFT TB POS CRIT Normal [facility] Comment on above: Result Comment: UTO- PT WILL COME BACK DIFFERENT DAY Performed By: #### L [id number] #### [facility] [address] [place], [address] QFT TB1+ AG SETH Normal [facility] Comment on above: Result Comment: UTO- PT WILL COME BACK DIFFERENT DAY Performed By: #### L 3400.8000 #### [facility] [address] [place], [address] QFT TB2+ AG SETH Normal [facility] Comment on above: Result Comment: UTO- PT WILL COME BACK DIFFERENT DAY Performed By: #### L 3400.8000 #### [facility] [address] [place], [address] Cerv Spine 2 or 3 Viewson Cerv Spine 2 or 3 Views [facility] Imaging Services [address] [place] [address] Cerv Spine 2 or 3 Views MR#: [id number] Acct: [id number] Name: ANUPAM BOBBY Rep #: [id number] : 1970 F 54 From: Thom Franklin MD PCP: Dr. Nancy Arellano MD Status: DEP AMB Study: Cerv Spine 2 or 3 Views Date of Exam: 07/26/24 Exam# [id number] Ordering Dr: Sagrario Singh EXAM: XR Cervical Spine Flexion/Extension Only, 2 or 3 Views CLINICAL INDICATION: CHRONIC PAIN TECHNIQUE: Lateral flexion/extension views of the cervical spine. COMPARISON: No relevant prior studies available. FINDINGS: VERTEBRAE: Multilevel endplate degenerative changes and anterior spurring of C4-C6. Normal alignment. No acute fracture or significant dynamic instability. DISC SPACES: No acute findings. No significant narrowing. SOFT TISSUES: Unremarkable. RAD/Cerv Spine 2 or 3 Views IMPRESSION: No acute fracture or significant dynamic instability. Reading Location: [facility] CC: HARSH Hartman; Dr. Nancy Arellano MD Product Safety And Standards Engineer: Signed Normal [facility] Orthopedic Visit Reporton Orthopedic Visit Report [facility] [address] [place] [address] OFFICE VISIT Date of Service: 07/26/24 MR#: [id number] Acct: [id number] Name: ANUPAM BOBBY Rep #: [id number] : 1970 Provider: HARSH Hartman Age/Sex: 54/F Location: [facility] Status: Signed Intake Vital Signs 07/17/23 08:06 07/26/24 14:28 Height 5 ft 5 in 5 ft 5 in Weight: 224 lb BMI 37.3 Intake Visit Reasons: CERVICAL SPINE Chief Complaint: Cervical spine pain Accompanied by: Self Is patient in pain?: Yes Pain scale (1-10): 4 Allergies amoxicillin Adverse Reaction (Severe, Verified 07/26/24 14:31) Rash Medications ???Medication ???Instructions ???Recorded ???Confirmed ???Type atenolol 50 mg tablet 50 mg PO DAILY 07/12/22 07/26/24 H istory meloxicam 15 mg tablet 15 mg PO DAILY PRN 07/12/22 History metformin 500 mg tablet,extended 500 mg PO DAILY 07/12/22 07/26/24 History release 24 hr tramadol 50 mg tablet 50 mg PO TID PRN 07/12/22 07/26/24 History duloxetine 60 mg capsule,delayed See Rx Instructions PO .COMPLEX 07/26/24 Rx release #60 caps Have you fallen in the past year?: No [facility] Medical History Psoriasis Hypertension Diabetes mellitus Polyneuropathy Surgical History History of back surgery Family History Mother Heart disease Hypertension Thyroid disorder Father Heart disease Hypertension Sister Hypertension Thyroid disorder Social History Smoking Status: Former smoker Tobacco: How many years used: 20 second hand exposure: No details: occasionally substance use type: does not use what type of physical activity do you participate in: none casey/yazidi: Judaism seatbelt use: always HPI CERVICAL SPINE Details: This documentation accurately reflects the service provided and the decisions made by me, HARSH Hartman 07/26/24 1376. Part of today???s visit was documented by Melanie Camargo MA, acting as scribe. ANUPAM BOBBY is a 54 year old F here today for cervical spine pain. Patient is having pain in the back of her neck. The pain goes down the right biceps area. She does get numbness in tingling in the right upper arm. This has been going on for at least a year worsening over the last several months with radiculopathy symptoms starting over the last couple of weeks. Patient woke up one day and it just started hurting she denies any trauma or injuries. Her pain extends down the right side of her neck to her right shoulder and to her right bicep and is described as a tingling burning pain. Denies any pain that extends below the elbow. Denies any left sided involvement. Patient sees Dr. Lacy for psoriatic arthritis and takes methotrexate and Taltz which is a monoclonal antibody injection. Patient goes to her every 3 months. Patient has had a laminectomy at L5-S1 followed by 2 other surgeries to stop a spinal cord fluid leak, those were in 2008. Dr. Padilla did 2 of the back surgeries, and Dr Spence did the 3rd back surgery. When she leans over her neck starts to hurt really bad. 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 The pain comes and goes. Patient has been doing physical therapy at home for exercise. Her heating pad helps a little bit. Denies any balance or dexterity issues. Hx of diabetes last a1c was 5.3, no heart or lung issues, no blood thinners. Takes Mobic which is helpful. Ortho Exam General General: Yes no acute distress Neurologic: Yes alert and Yes oriented x3 Spine SPINE TESTING CERVICAL THORACIC LUMBAR Musculoskeletal Strength 0=absent - 5=normal Details: Neurological exam of the upper extremities shows 5X5 power. Normal sensation across all dermatomes. There is brisk right knee reflexes. No midline tenderness and mild right paraspinal tenderness. Coding Level of Care Code Off vis,new,level 4 Diagnoses Degenerative disc disease, cervical M50.30 Cervical myelopathy with cervical radiculopathy G95.9; M54.12 Assessment and Plan Assessment and Plan (1) Degenerative disc disease, cervical: Status: Acute (2) Cervical myelopathy with cervical radiculopathy: Orders: Orders Cerv Spine 2 or 3 Views Today M54.2 - Cervicalgia Spine Cervical (Routine) Today G95.9 - Disease of spinal cord, unspecified, M54.12 - Radiculopathy, cervical region Plan Obtained and reviewed imaging today. Independent interpretation of the xrays was performed. Imaging shows a mild multilevel disc h (more content not included)... Normal [facility] Cerv Spine 4 or 5 Viewson Cerv Spine 4 or 5 Views [facility] Imaging Services [address] [place] [address] Cerv Spine 4 or 5 Views MR#: [id number] Acct: [id number] Name: ANUPAM BOBBY Rep #: [id number] : 1970 F 54 From: Zak Jacobson PCP: Dr. Nancy Arellano MD Status: REG CLI Study: Cerv Spine 4 or 5 Views Date of Exam: 07/12/24 Exam# [id number] Ordering Dr: Nancy Arellano MD PROCEDURE: CERV SPINE 4 OR 5 VIEWS 07/12/2024 REASON FOR EXAM: PAIN AND NEUROPATHY TECHNIQUE: Five views of the cervical spine COMPARISON: None FINDINGS: See impression RAD/Cerv Spine 4 or 5 Views IMPRESSION: Minimal cervical kyphosis. Vertebral body heights are preserved. Mild/moderate disc space narrowing from C4 through C6 with associated uncovertebral arthrosis, greater on the right. Moderate bony right foraminal narrowing at C4-5 and C5-6. Mild multilevel facet arthropathy. [facility] CC: Dr. Nancy Arellano MD Product Safety And Standards Engineer: Signed Normal [facility] Absolute lymphocyte countOrd ered By: [facility] on 07-02-2024 Lymphocytes Auto (Unsp spec) [#/Vol] 2.93 10*3/uL 0.83-4.51 [facility] Absolute neutrophil countOrd ered By: [facility] 07-[facility]-2024 Neutrophils (Bld) [#/Vol] 5.0 10*3/uL 2.0-7.7 [facility] Anion gap in Serum or Plasma Ordered By: Aurearaymond Pritchard on 07-02-2024 Anion gap [Moles/Vol] 14 mmol/L 5-15 [facility] Automated lymphocyte count a s percentage of total leukocytesOrdered By: [facility] on 07-02-2024 Lymphocytes/100 WBC Auto (Unsp spec) 34.4 % 19-41 [facility] BUN/creatinine ratioOrdered By: [facility] on 07-02-2024 Urea nitrogen/Creatinine [Mass ratio] 14.7 mg/mg 10-20 [facility] Basophil percentageOrdered B y: Aurea Pritchard on 07-02-2024 Basophils/100 WBC (Bld) 0.9 % 0-1 [facility] Bilirubin, totalOrdered By: [facility] on 07-02-2024 Bilirubin [Mass/Vol] 0.24 mg/dL 0.00-1.30 [facility] CBC W/Diff, Automatedon Absolute Lymph 2.93 X10 3/uL Normal 0.83-4.51 [facility] Comment on above: Performed By: #### L 500.4050, L100.0100 ####[facility] [address] [place], [address] Absolute Neut 5.0 X10 3/uL Normal 2.0-7.7 [facility] Comment on above: Performed By: #### L 500.4050, L100.0100 ####[facility] [address] [place], [address] Basophils/100 WBC (Bld) 0.9 % Normal 0-1 [facility] Comment on above: Performed By: #### L 500.4050, L100.0100 ####[facility] [address] [place], [address] Eosinophils/100 WBC (Bld) 1.3 % Normal 0-5 [facility] Comment on above: Performed By: #### L 500.4050, L100.0100 ####[facility] [address] [place], [address] Erythrocyte distribution width (RBC) [Ratio] 14.1 % Normal 11.6-14.6 [facility] Comment on above: Performed By: #### L 500.4050, L100.0100 ####[facility] [address] [place], [address] Hematocrit (Bld) [Volume fraction] 41.5 % Normal 37-47 [facility] Comment on above: Performed By: #### L 500.4050, L100.0100 ####[facility] [address] [place], [address] Hemoglobin (Bld) [Mass/Vol] 13.4 g/dL Normal 12.0-15.0 [facility] Comment on above: Performed By: #### L 500.4050, L100.0100 ####[facility] [address] [place], [address] IG% 0.200 Normal 0.0-0.9 [facility] Comment on above: Result Comment: IG% - Immature Granulocytes (promyelocytes, myelocytes and metamyelocytes) > 1% indicates that a LEFT SHIFT is Present. Performed By: #### L 500.4050, L100.0100 ####[facility] [address] [place], [address] Lymphocytes/100 WBC (Bld) 34.4 % Normal 19-41 [facility] Comment on above: Performed By: #### L 500.4050, L100.0100 ####[facility] [address] [place], [address] MCH (RBC) [Entitic mass] 27.6 pg Normal 27.0-32.0 [facility] Comment on above: Performed By: #### L 500.4050, L100.0100 ####[facility] [address] [place], [address] MCHC (RBC) [Mass/Vol] 32.3 g/dL Normal 32-36 [facility] Comment on above: Performed By: #### L 500.4050, L100.0100 ####[facility] [address] [place], [address] MCV (RBC) [Entitic vol] 85.4 fL Normal 81-99 [facility] Comment on above: Performed By: #### L 500.4050, L100.0100 ####[facility] [address] [place], [address] Monocytes/100 WBC (Bld) 4.2 % Normal 0-10 [facility] Comment on above: Performed By: #### L 500.4050, L100.0100 ####[facility] [address] [place], [address] Neutrophils/100 WBC (Bld) 59.0 % Normal 47-70 [facility] Comment on above: Performed By: #### L 500.4050, L100.0100 ####[facility] [address] [place], [address] Nucleated RBC (Bld) [#/Vol] 0 10*3/uL Normal 0-5 [facility] Comment on above: Performed By: #### L 500.4050, L100.0100 ####[facility] [address] [place], [address] Platelet mean volume (Bld) [Entitic vol] 10.5 fL Normal 6.2-12.0 [facility] Comment on above: Performed By: #### L 500.4050, L100.0100 ####[facility] [address] [place], [address] Platelets (Bld) [#/Vol] 360 10*3/uL Normal 150-450 [facility] Comment on above: Performed By: #### L 500.4050, L100.0100 ####[facility] [address] [place], [address] RBC (Bld) [#/Vol] 4.86 10*6/uL Normal 4.2-5.4 [facility] Comment on above: Performed By: #### L 500.4050, L100.0100 ####[facility] [address] [place], [address] RDW SD 43.6 fl Normal 35.1-43.9 [facility] Comment on above: Performed By: #### L 500.4050, L100.0100 ####[facility] [address] [place], [address] WBC (Bld) [#/Vol] 8.5 10*3/uL Normal 4.4-11.0 [facility] Comment on above: Performed By: #### L 500.4050, L100.0100 ####[facility] [address] [place], [address] Carbon dioxide, total [Moles /volume] in Central venous bloodOrdered By: Aurea Pritchard on 07-02-2024 CO2 [Moles/Vol] 27.1 mmol/L 21.0-32.0 [facility] Chloride assayOrdered By: Harsh Pritchard on 07-02-2024 Chloride [Moles/Vol] 100 mmol/L 98-108 [facility] Comprehensive Metabolic Prof ilon 07-02-2024 Albumin [Mass/Vol] 4.2 g/dL Normal 3.5-5.0 [facility] Comment on above: Performed By: #### L 500.4050, L100.0100 ####[facility] [address] [place], [address] Albumin/Globulin [Mass ratio] 1.2 {ratio} Normal 0.9-2.4 [facility] Comment on above: Performed By: #### L 500.4050, L100.0100 ####[facility] [address] [place], [address] ALK PHOS 56 U/L Normal 35-104 [facility] Comment on above: Performed By: #### L 500.4050, L100.0100 ####[facility] [address] [place], [address] ALT [Catalytic activity/Vol] 17 U/L Normal <=34 [facility] Comment on above: Performed By: #### L 500.4050, L100.0100 ####[facility] [address] [place], [address] AST [Catalytic activity/Vol] 19 U/L Normal <=31 [facility] Comment on above: Performed By: #### L 500.4050, L100.0100 ####[facility] [address] [place], [address] Bilirubin [Mass/Vol] 0.24 mg/dL Normal 0.00-1.30 [facility] Comment on above: Performed By: #### L 500.4050, L100.0100 ####[facility] [address] [place], [address] BUN/CRE 14.7 RATIO Normal 10-20 [facility] Comment on above: Performed By: #### L 500.4050, L100.0100 ####[facility] [address] [place], [address] Calcium [Mass/Vol] 9.7 mg/dL Normal 7.6-11.0 [facility] Comment on above: Performed By: #### L 500.4050, L100.0100 ####[facility] [address] [place], [address] Chloride [Moles/Vol] 100 mmol/L Normal 98-108 [facility] Comment on above: Performed By: #### L 500.4050, L100.0100 ####[facility] [address] [place], [address] CO2 [Moles/Vol] 27.1 mmol/L Normal 21.0-32.0 [facility] Comment on above: Performed By: #### L 500.4050, L100.0100 ####[facility] [address] [place], [address] Creatinine [Mass/Vol] 0.97 mg/dL Normal 0.70-1.20 [facility] Comment on above: Performed By: #### L 500.4050, L100.0100 ####[facility] [address] [place], [address] GAP 14 Normal 5-15 [facility] Comment on above: Performed By: #### L 500.4050, L100.0100 ####[facility] [address] [place], [address] GFR/1.73 sq M.predicted among non-blacks MDRD (S/P/Bld) [Vol rate/Area] 69 mL/min/{1.73_m2} Normal >60 [facility] Comment on above: Result Comment: mL/m in/1.73m2 CKD-EPI Creatinine Equation (2020) Performed By: #### L 500.4050, L100.0100 ####[facility] [address] [place], [address] Globulin (S) [Mass/Vol] 3.4 g/dL Normal 2.2-4.2 [facility] Comment on above: Performed By: #### L 500.4050, L100.0100 ####[facility] [address] [place], [address] Glucose [Mass/Vol] 69 mg/dL Low 70-99 [facility] Comment on above: Performed By: #### L 500.4050, L100.0100 ####[facility] [address] [place], [address] Potassium [Moles/Vol] 4.0 mmol/L Normal 3.3-5.1 [facility] Comment on above: Performed By: #### L 500.4050, L100.0100 ####[facility] [address] [place], [address] Sodium [Moles/Vol] 140 mmol/L Normal 133-145 [facility] Comment on above: Performed By: #### L 500.4050, L100.0100 ####[facility] [address] [place], [address] T PROT 7.6 g/dL Normal 5.9-8.4 [facility] Comment on above: Performed By: #### L 500.4050, L100.0100 ####[facility] [address] [place], [address] Urea nitrogen [Mass/Vol] 14 mg/dL Normal 4-19 [facility] Comment on above: Performed By: #### L 500.4050, L100.0100 ####[facility] [address] [place], [address] Eosinophil percentageOrdered By: Aurea Pritchard on 07-02-2024 Eosinophils/100 WBC (Bld) 1.3 % 0-5 [facility] Erythrocyte distribution wid th (RBC) [Ratio]Ordered By: Aurea Pritchard on 07-02-2024 Erythrocyte distribution width (RBC) [Entitic vol] 43.6 fL 35.1-43.9 [facility] Erythrocyte distribution wid th ratioOrdered By: Aurea Pritchard on 07-02-2024 Erythrocyte distribution width (RBC) [Ratio] 14.1 % 11.6-14.6 [facility] Erythrocyte distribution wid th standard deviationOrdered By: Aurea Pritchard on 07-02-2024 Erythrocyte distribution width (RBC) [Ratio] 43.6 fl 35.1-43.9 [facility] GFR/1.73 sq M.predicted dhruv g non-blacks MDRD (S/P/Bld) [Vol rate/Area]Ordered By: Aurea Pritchard on 07-02-2024 Estimated GFR (MDRD) Non-Af Amer 69 >60 [facility] Comment on above: mL/min/1.73m2 CKD-EP I Creatinine Equation (2020) Glomerular filtration rate ( GFR) estimation/1.73 sq m using serum, plasma, or whole bOrdered By: Aurea Pritchard on 07-02-2024 GFR/1.73 sq M.predicted among non-blacks MDRD (S/P/Bld) [Vol rate/Area] 69 mL/min/{1.73_m2} >60 [facility] Comment on above: mL/min/1.73m2 CKD-EP I Creatinine Equation (2020) Hematocrit Auto (Bld) [Volum e fraction]Ordered By: Aurea Pritchard on 07-02-2024 Hematocrit (Bld) [Volume fraction] 41.5 % 37-47 [facility] Hemoglobin measurementOrdere d By: Aurea Pritchard on 07-02-2024 Hemoglobin (Bld) [Mass/Vol] 13.4 g/dL 12.0-15.0 [facility] Immature granulocytes/100 WB C Auto (Bld)Ordered By: Aurea Pritchard on 07-02-2024 Immature granulocytes/100 WBC (Bld) 0.200 % 0.0-0.9 [facility] Comment on above: IG% - Immature Granu locytes (promyelocytes, myelocytes and metamyelocytes) > 1% indicates that a LEFT SHIFT is Present. Laboratory - Chemistry and C hemistry - challengeOrdered By: Aurea Pritchard on 07-02-2024 AST [Catalytic activity/Vol] 19 U/L <32 [facility] Lymphocytes Auto (Unsp spec) [#/Vol]Ordered By: Aurea Pritchard on 07-02-2024 Lymphocytes (Bld) [#/Vol] 2.93 10*3/uL 0.83-4.51 [facility] Lymphocytes/100 WBC Auto (Un sp spec)Ordered By: Aurea Pritchard on 07-02-2024 Lymphocytes/100 WBC (Bld) 34.4 % 19-41 [facility] MCV (mean corpuscular volume ) determinationOrdered By: Aurea Pritchard on 07-02-2024 MCV (RBC) [Entitic vol] 85.4 fL 81-99 [facility] Mean corpuscular hemoglobin (MCH) determinationOrdered By: Aurea Pritchard on 07-02-2024 MCH (RBC) [Entitic mass] 27.6 pg 27.0-32.0 [facility] Mean corpuscular hemoglobin concentration (MCHC) determinationOrdered By: Aurea Pritchard on 07-02-2024 MCHC (RBC) [Mass/Vol] 32.3 g/dL 32-36 [facility] Mean platelet volume determi nationOrdered By: Aurea Pritchard on 07-02-2024 Platelet mean volume (Bld) [Entitic vol] 10.5 fL 6.2-12.0 [facility] Monocyte percentageOrdered B y: Aurea Pritchard on 07-02-2024 Monocytes/100 WBC (Bld) 4.2 % 0-10 [facility] Neutrophil percentageOrdered By: Aurea Pritchard on 07-02-2024 Neutrophils/100 WBC (Bld) 59.0 % 47-70 [facility] Nucleated red blood cell per centageOrdered By: Aurea Pritchard on 07-02-2024 Nucleated RBC/100 WBC (Bld) [Ratio] 0 % 0-5 [facility] Platelet countOrdered By: Harsh Pritchard on 07-02-2024 Platelets (Bld) [#/Vol] 360 10*3/uL 150-450 [facility] Potassium (Unsp spec) [Mass/ Vol]Ordered By: Aurea Pritchard on 07-02-2024 Potassium [Moles/Vol] 4.0 mmol/L 3.3-5.1 [facility] Potassium measurement (mass/ volume)Ordered By: Aurea Pritchard on 07-02-2024 Potassium (Unsp spec) [Mass/Vol] 4.0 mmol/L 3.3-5.1 [facility] RBC Auto (Bld) [#/Vol]Ordere d By: Aurea Pritchard on 07-02-2024 RBC (Bld) [#/Vol] 4.86 10*6/uL 4.2-5.4 [facility] Serum creatinine measurement (mass/volume)Ordered By: Aurea Pritchard on 07-02-2024 Creatinine [Mass/Vol] 0.97 mg/dL 0.70-1.20 [facility] Serum globulin measurementOr dered By: Aurea Pritchard on 07-02-2024 Globulin (S) [Mass/Vol] 3.4 g/dL 2.2-4.2 [facility] Serum glucose measurement (m ass/volume)Ordered By: Aurea Pritchard on 07-02-2024 Glucose [Mass/Vol] 69 mg/dL Low 70-99 [facility] Serum or plasma alanine vinson otransferase (ALT) measurementOrdered By: Aurea Pritchard on 07-02-2024 ALT [Catalytic activity/Vol] 17 U/L <35 [facility] Serum or plasma albumin brittanie urement (mass/volume)Ordered By: Aurea Pritchard on 07-02-2024 Albumin [Mass/Vol] 4.2 g/dL 3.5-5.0 [facility] Serum or plasma albumin/glob ulin mass ratioOrdered By: Aurea Pritchard on 07-02-2024 Albumin/Globulin [Mass ratio] 1.2 {ratio} 0.9-2.4 [facility] Serum or plasma alkaline marielle sphatase measurementOrdered By: Aurea Pritchard on 07-02-2024 ALP [Catalytic activity/Vol] 56 U/L 35-104 [facility] Serum or plasma calcium brittanie urement (mass/volume)Ordered By: Aurea Pritchard on 07-02-2024 Calcium [Mass/Vol] 9.7 mg/dL 7.6-11.0 [facility] Serum or plasma urea nitroge n measurement (mass/volume)Ordered By: Aurea Pritchard on 07-02-2024 Urea nitrogen [Mass/Vol] 14 mg/dL 4-19 [facility] Sodium levelOrdered By: Yolie Pritchard on 07-02-2024 Sodium [Moles/Vol] 140 mmol/L 133-145 [facility] Total proteinOrdered By: Ramin Pritchard on 07-02-2024 Protein [Mass/Vol] 7.6 g/dL 5.9-8.4 [facility] White blood cell (WBC) count Ordered By: Aurea Pritchard on 07-02-2024 WBC (Bld) [#/Vol] 8.5 10*3/uL 4.4-11.0 [facility] Absolute neutrophil countOrd ered By: Aurea Pritchard on 04-10-2024 Neutrophils (Bld) [#/Vol] 7.5 10*3/uL 2.0-7.7 [facility] Albumin to globulin ratioOrd ered By: Aurea Pritchard on 04-10-2024 Albumin/Globulin [Mass ratio] 0.5 {ratio} Low 0.9-2.4 [facility] Basophil percentageOrdered B y: Aurea rPitchard on 04-10-2024 Basophils/100 WBC (Bld) 0.7 % 0-1 [facility] Bilirubin, totalOrdered By: Aurea Pritchard on 04-10-2024 Bilirubin [Mass/Vol] 0.20 mg/dL 0.20-1.00 [facility] Comment on above: For patients on eltr ombopag therapy, use of Dimension [place] TBIL is not recommended. Blood urea nitrogen (BUN)/cr eatinine ratioOrdered By: Aurea Pritchard on 04-10-2024 Urea nitrogen/Creatinine [Mass ratio] 12.5 mg/mg 10-20 [facility] CBC W/Diff, Automatedon Absolute Lymph 2.42 X10 3/uL Normal 0.83-4.51 [facility] Comment on above: Performed By: #### L 100.0100, L500.4050 ####[facility] [address] [place], [address] Absolute Neut 7.5 X10 3/uL Normal 2.0-7.7 [facility] Comment on above: Performed By: #### L 100.0100, L500.4050 ####[facility] [address] [place], [address] Basophils/100 WBC (Bld) 0.7 % Normal 0-1 [facility] Comment on above: Performed By: #### L 100.0100, L500.4050 ####[facility] [address] [place], [address] Eosinophils/100 WBC (Bld) 1.2 % Normal 0-5 [facility] Comment on above: Performed By: #### L 100.0100, L500.4050 ####[facility] [address] [place], [address] Erythrocyte distribution width (RBC) [Ratio] 15.6 % High 11.6-14.6 [facility] Comment on above: Performed By: #### L 100.0100, L500.4050 ####[facility] [address] [place], [address] Hematocrit (Bld) [Volume fraction] 39.6 % Normal 37-47 [facility] Comment on above: Performed By: #### L 100.0100, L500.4050 ####[facility] [address] [place], [address] Hemoglobin (Bld) [Mass/Vol] 12.3 g/dL Normal 12.0-15.0 [facility] Comment on above: Performed By: #### L 100.0100, L500.4050 ####[facility] [address] [place], [address] IG% 0.600 Normal 0.0-0.9 [facility] Comment on above: Result Comment: IG% - Immature Granulocytes (promyelocytes, myelocytes and metamyelocytes) > 1% indicates that a LEFT SHIFT is Present. Performed By: #### L 100.0100, L500.4050 ####[facility] [address] [place], [address] Lymphocytes/100 WBC (Bld) 22.8 % Normal 19-41 [facility] Comment on above: Performed By: #### L 100.0100, L500.4050 ####[facility] [address] [place], [address] MCH (RBC) [Entitic mass] 25.4 pg Low 27.0-32.0 [facility] Comment on above: Performed By: #### L 100.0100, L500.4050 ####[facility] [address] [place], [address] MCHC (RBC) [Mass/Vol] 31.1 g/dL Low 32-36 [facility] Comment on above: Performed By: #### L 100.0100, L500.4050 ####[facility] [address] [place], [address] MCV (RBC) [Entitic vol] 81.8 fL Normal 81-99 [facility] Comment on above: Performed By: #### L 100.0100, L500.4050 ####[facility] [address] [place], [address] Monocytes/100 WBC (Bld) 3.8 % Normal 0-10 [facility] Comment on above: Performed By: #### L 100.0100, L500.4050 ####[facility] [address] [place], [address] Neutrophils/100 WBC (Bld) 70.9 % High 47-70 [facility] Comment on above: Performed By: #### L 100.0100, L500.4050 ####[facility] [address] [place], [address] Nucleated RBC (Bld) [#/Vol] 0 10*3/uL Normal 0-5 [facility] Comment on above: Performed By: #### L 100.0100, L500.4050 ####[facility] [address] [place], [address] Platelet mean volume (Bld) [Entitic vol] 10.2 fL Normal 6.2-12.0 [facility] Comment on above: Performed By: #### L 100.0100, L500.4050 ####[facility] [address] [place], [address] Platelets (Bld) [#/Vol] 621 10*3/uL High 150-450 [facility] Comment on above: Performed By: #### L 100.0100, L500.4050 ####[facility] [address] [place], [address] RBC (Bld) [#/Vol] 4.84 10*6/uL Normal 4.2-5.4 [facility] Comment on above: Performed By: #### L 100.0100, L500.4050 ####[facility] [address] [place], [address] RDW SD 46.5 fl High 35.1-43.9 [facility] Comment on above: Performed By: #### L 100.0100, L500.4050 ####[facility] [address] [place], [address] WBC (Bld) [#/Vol] 10.6 10*3/uL Normal 4.4-11.0 [facility] Comment on above: Performed By: #### L 100.0100, L500.4050 ####[facility] [address] [place], [address] Carbon dioxide measurementOr dered By: Aurea Pritchard on 04-10-2024 CO2 [Moles/Vol] 30.0 mmol/L 21.0-32.0 [facility] Chloride measurementOrdered By: Aurea Pritchard on 04-10-2024 Chloride [Moles/Vol] 101 mmol/L 98-107 [facility] Comprehensive Metabolic Prof ilon 04-10-2024 Albumin [Mass/Vol] 2.7 g/dL Low 3.2-5.0 [facility] Comment on above: Performed By: #### L 100.0100, L500.4050 ####[facility] [address] [place], [address] Albumin/Globulin [Mass ratio] 0.5 {ratio} Low 0.9-2.4 [facility] Comment on above: Performed By: #### L 100.0100, L500.4050 ####[facility] [address] [place], [address] ALK P 67 U/L Normal 45-117 [facility] Comment on above: Performed By: #### L 100.0100, L500.4050 ####[facility] [address] [place], [address] ALT [Catalytic activity/Vol] 20 U/L Normal 13-56 [facility] Comment on above: Performed By: #### L 100.0100, L500.4050 ####[facility] [address] [place], [address] AST [Catalytic activity/Vol] 12 U/L Low 15-37 [facility] Comment on above: Performed By: #### L 100.0100, L500.4050 ####[facility] [address] [place], [address] Bilirubin [Mass/Vol] 0.20 mg/dL Normal 0.20-1.00 [facility] Comment on above: Result Comment: For patients on eltrombopag therapy, use of Dimension [place] TBIL is not recommended. Performed By: #### L 100.0100, L500.4050 ####[facility] [address] [place], [address] BUN/CRE 12.5 RATIO Normal 10-20 [facility] Comment on above: Performed By: #### L 100.0100, L500.4050 ####[facility] [address] [place], [address] CA,Total 9.6 mg/dL Normal 8.5-10.1 [facility] Comment on above: Performed By: #### L 100.0100, L500.4050 ####[facility] [address] [place], [address] Chloride [Moles/Vol] 101 mmol/L Normal 98-107 [facility] Comment on above: Performed By: #### L 100.0100, L500.4050 ####[facility] [address] [place], [address] CO2 [Moles/Vol] 30.0 mmol/L Normal 21.0-32.0 [facility] Comment on above: Performed By: #### L 100.0100, L500.4050 ####[facility] [address] [place], [address] Creatinine [Mass/Vol] 0.88 mg/dL Normal 0.55-1.02 [facility] Comment on above: Result Comment: The validity of the calculated GFR GFRAA in patients over 70 years has not been determined. Clinical correlation is essential. Performed By: #### L 100.0100, L500.4050 ####[facility] [address] [place], [address] EST GFR - AA 86 mL/min Normal >60 [facility] Comment on above: Result Comment: Afri can [place] GFR Calc Performed By: #### L 100.0100, L500.4050 ####[facility] [address] [place], [address] GAP 5 Normal 5-15 [facility] Comment on above: Performed By: #### L 100.0100, L500.4050 ####[facility] [address] [place], [address] GFR/1.73 sq M.predicted among non-blacks MDRD (S/P/Bld) [Vol rate/Area] 71 mL/min/{1.73_m2} Normal >60 [facility] Comment on above: Result Comment: Non- GFR Calc Performed By: #### L 100.0100, L500.4050 ####[facility] [address] [place], [address] Globulin (S) [Mass/Vol] 5.1 g/dL High 2.2-4.2 [facility] Comment on above: Performed By: #### L 100.0100, L500.4050 ####[facility] [address] [place], [address] Glucose [Mass/Vol] 149 mg/dL High 74-106 [facility] Comment on above: Result Comment: Fast ing Glucose result greater than or equal to 126 mg/dL suggests DIABETES MELLITUS per A.D.A. criteria. Performed By: #### L 100.0100, L500.4050 ####[facility] [address] [place], [address] Potassium [Moles/Vol] 3.8 mmol/L Normal 3.5-5.1 [facility] Comment on above: Performed By: #### L 100.0100, L500.4050 ####[facility] [address] [place], [address] Sodium [Moles/Vol] 135 mmol/L Low 136-145 [facility] Comment on above: Performed By: #### L 100.0100, L500.4050 ####[facility] [address] [place], [address] T PROT 7.8 g/dL Normal 6.4-8.2 [facility] Comment on above: Performed By: #### L 100.0100, L500.4050 ####[facility] [address] [place], [address] Urea nitrogen [Mass/Vol] 11 mg/dL Normal 7-18 [facility] Comment on above: Performed By: #### L 100.0100, L500.4050 ####[facility] [address] [place], [address] Eosinophil percentageOrdered By: Aurea Pritchard on 04-10-2024 Eosinophils/100 WBC (Bld) 1.2 % 0-5 [facility] Erythrocyte distribution wid th (RBC) [Ratio]Ordered By: Aurea Pritchard on 04-10-2024 Erythrocyte distribution width (RBC) [Entitic vol] 46.5 fL High 35.1-43.9 [facility] Erythrocyte distribution wid th ratioOrdered By: Aurea Pritchard on 04-10-2024 Erythrocyte distribution width (RBC) [Ratio] 15.6 % High 11.6-14.6 [facility] Estimated glomerular filtrat ion rate (GFR) AmericanOrdered By: Aurea Pritchard on 04-10-2024 Estimated GFR (MDRD) Amer 86 mL/min >60 [facility] Comment on above: GFR Calc Glomerular filtration rate ( GFR) estimationOrdered By: Aurea Pritchard on 04-10-2024 Estimated GFR (MDRD) Non-Af Amer 71 mL/min >60 [facility] Comment on above: Non- GFR Calc Glucose measurementOrdered B y: Aurea Pritchard on 04-10-2024 Glucose [Mass/Vol] 149 mg/dL High 74-106 [facility] Comment on above: Fasting Glucose resu lt greater than or equal to 126 mg/dL suggests DIABETES MELLITUS per A.D.A. criteria. Hematocrit Auto (Bld) [Volum e fraction]Ordered By: Aurea Pritchard on 04-10-2024 Hematocrit (Bld) [Volume fraction] 39.6 % 37-47 [facility] Hemoglobin measurementOrdere d By: Aurea Pritchard on 04-10-2024 Hemoglobin (Bld) [Mass/Vol] 12.3 g/dL 12.0-15.0 [facility] Immature granulocytes/100 WB C Auto (Bld)Ordered By: Aurea Pritchard on 04-10-2024 Immature granulocytes/100 WBC (Bld) 0.600 % 0.0-0.9 [facility] Comment on above: IG% - Immature Granu locytes (promyelocytes, myelocytes and metamyelocytes) > 1% indicates that a LEFT SHIFT is Present. Laboratory - Chemistry and C hemistry - challengeOrdered By: Aurea Pritchard on 04-10-2024 AST [Catalytic activity/Vol] 12 U/L Low 15-37 [facility] Lymphocytes Auto (Unsp spec) [#/Vol]Ordered By: Aurea Pritchard on 04-10-2024 Lymphocytes (Bld) [#/Vol] 2.42 10*3/uL 0.83-4.51 [facility] Lymphocytes/100 WBC Auto (Un sp spec)Ordered By: Aurea Pritchard on 04-10-2024 Lymphocytes/100 WBC (Bld) 22.8 % 19-41 [facility] MCV (mean corpuscular volume ) determinationOrdered By: Aurea Pritchard on 04-10-2024 MCV (RBC) [Entitic vol] 81.8 fL 81-99 [facility] Mean corpuscular hemoglobin (MCH) determinationOrdered By: Aurea Pritchard on 04-10-2024 MCH (RBC) [Entitic mass] 25.4 pg Low 27.0-32.0 [facility] Mean corpuscular hemoglobin concentration (MCHC) determinationOrdered By: Aurea Pritchard on 04-10-2024 MCHC (RBC) [Mass/Vol] 31.1 g/dL Low 32-36 [facility] Mean platelet volume determi nationOrdered By: Aurea Pritchard on 04-10-2024 Platelet mean volume (Bld) [Entitic vol] 10.2 fL 6.2-12.0 [facility] Monocyte percentageOrdered B y: Aurea Pritchard on 04-10-2024 Monocytes/100 WBC (Bld) 3.8 % 0-10 [facility] Neutrophil percentageOrdered By: Aurea Pritchard on 04-10-2024 Neutrophils/100 WBC (Bld) 70.9 % High 47-70 [facility] Nucleated red blood cell per centageOrdered By: Aurea Pritchard on 04-10-2024 Nucleated RBC/100 WBC (Bld) [Ratio] 0 % 0-5 [facility] Platelet countOrdered By: Harsh Pritchard on 04-10-2024 Platelets (Bld) [#/Vol] 621 10*3/uL High 150-450 [facility] Potassium measurementOrdered By: Aurea Pritchard on 04-10-2024 Potassium [Moles/Vol] 3.8 mmol/L 3.5-5.1 [facility] RBC Auto (Bld) [#/Vol]Ordere d By: Aurea Pritchard on 04-10-2024 RBC (Bld) [#/Vol] 4.84 10*6/uL 4.2-5.4 [facility] Serum anion gap measurementO rdered By: Aurea Pritchard on 04-10-2024 Anion gap [Moles/Vol] 5 mmol/L 5-15 [facility] Serum globulin measurementOr dered By: Aurea Pritchard on 04-10-2024 Globulin (S) [Mass/Vol] 5.1 g/dL High 2.2-4.2 [facility] Serum or plasma alanine vinson otransferase (ALT) measurementOrdered By: Aurea Pritchard on 04-10-2024 ALT [Catalytic activity/Vol] 20 U/L 13-56 [facility] Serum or plasma albumin brittanie urement (mass/volume)Ordered By: Aurea Pritchard on 04-10-2024 Albumin [Mass/Vol] 2.7 g/dL Low 3.2-5.0 [facility] Serum or plasma alkaline marielle sphatase measurementOrdered By: Aurea Pritchard on 04-10-2024 ALP [Catalytic activity/Vol] 67 U/L 45-117 [facility] Serum or plasma calcium brittanie urement (mass/volume)Ordered By: Aurea Pritchard on 04-10-2024 Calcium [Mass/Vol] 9.6 mg/dL 8.5-10.1 [facility] Serum or plasma creatinine m easurement (mass/volume)Ordered By: Aurea Pritchard on 04-10-2024 Creatinine [Mass/Vol] 0.88 mg/dL 0.55-1.02 [facility] Comment on above: The validity of the calculated GFR & GFRAA in patients over 70 years has not been determined. Clinical correlation is essential. Serum or plasma urea nitroge n measurement (mass/volume)Ordered By: Aurea Pritchard on 04-10-2024 Urea nitrogen [Mass/Vol] 11 mg/dL 7-18 [facility] Sodium levelOrdered By: Yolie Pritchard on 04-10-2024 Sodium [Moles/Vol] 135 mmol/L Low 136-145 [facility] Total proteinOrdered By: Ramin Pritchard on 04-10-2024 Protein [Mass/Vol] 7.8 g/dL 6.4-8.2 [facility] White blood cell (WBC) count Ordered By: Aurea Pritchard on 04-10-2024 WBC (Bld) [#/Vol] 10.6 10*3/uL 4.4-11.0 [facility] CBC W/Diff, Automatedon 11-0 Absolute Lymph 2.96 X10 3/uL Normal 0.83-4.51 [facility] Comment on above: Performed By: #### L 100.0100, L500.4050 #### [facility] [address] [place], [address] Absolute Neut 4.7 X10 3/uL Normal 2.0-7.7 [facility] Comment on above: Performed By: #### L 100.0100, L500.4050 #### [facility] [address] [place], [address] Basophils/100 WBC (Bld) 1.1 % High 0-1 [facility] Comment on above: Performed By: #### L 100.0100, L500.4050 #### [facility] [address] [place], [address] Eosinophils/100 WBC (Bld) 3.2 % Normal 0-5 [facility] Comment on above: Performed By: #### L 100.0100, L500.4050 #### [facility] [address] [place], [address] Erythrocyte distribution width (RBC) [Ratio] 13.8 % Normal 11.6-14.6 [facility] Comment on above: Performed By: #### L 100.0100, L500.4050 #### [facility] [address] [place], [address] Hematocrit (Bld) [Volume fraction] 39.1 % Normal 37-47 [facility] Comment on above: Performed By: #### L 100.0100, L500.4050 #### [facility] [address] [place], [address] Hemoglobin (Bld) [Mass/Vol] 12.2 g/dL Normal 12.0-15.0 [facility] Comment on above: Performed By: #### L 100.0100, L500.4050 #### [facility] [address] [place], [address] IG% 0.400 Normal 0.0-0.9 [facility] Comment on above: Result Comment: IG% - Immature Granulocytes (promyelocytes, myelocytes and metamyelocytes) > 1% indicates that a LEFT SHIFT is Present. Performed By: #### L 100.0100, L500.4050 #### [facility] [address] [place], [address] Lymphocytes/100 WBC (Bld) 34.7 % Normal 19-41 [facility] Comment on above: Performed By: #### L 100.0100, L500.4050 #### [facility] [address] [place], [address] MCH (RBC) [Entitic mass] 25.8 pg Low 27.0-32.0 [facility] Comment on above: Performed By: #### L 100.0100, L500.4050 #### [facility] [address] [place], [address] MCHC (RBC) [Mass/Vol] 31.2 g/dL Low 32-36 [facility] Comment on above: Performed By: #### L 100.0100, L500.4050 #### [facility] [address] [place], [address] MCV (RBC) [Entitic vol] 82.8 fL Normal 81-99 [facility] Comment on above: Performed By: #### L 100.0100, L500.4050 #### [facility] [address] [place], [address] Monocytes/100 WBC (Bld) 5.2 % Normal 0-10 [facility] Comment on above: Performed By: #### L 100.0100, L500.4050 #### [facility] [address] [place], [address] Neutrophils/100 WBC (Bld) 55.4 % Normal 47-70 [facility] Comment on above: Performed By: #### L 100.0100, L500.4050 #### [facility] [address] [place], [address] Nucleated RBC (Bld) [#/Vol] 0 10*3/uL Normal 0-5 [facility] Comment on above: Performed By: #### L 100.0100, L500.4050 #### [facility] [address] [place], [address] Platelet mean volume (Bld) [Entitic vol] 9.9 fL Normal 6.2-12.0 [facility] Comment on above: Performed By: #### L 100.0100, L500.4050 #### [facility] [address] [place], [address] Platelets (Bld) [#/Vol] 333 10*3/uL Normal 150-450 [facility] Comment on above: Performed By: #### L 100.0100, L500.4050 #### [facility] [address] [place], [address] RBC (Bld) [#/Vol] 4.72 10*6/uL Normal 4.2-5.4 [facility] Comment on above: Performed By: #### L 100.0100, L500.4050 #### [facility] [address] [place], [address] RDW SD 41.1 fl Normal 35.1-43.9 [facility] Comment on above: Performed By: #### L 100.0100, L500.4050 #### [facility] [address] [place], [address] WBC (Bld) [#/Vol] 8.5 10*3/uL Normal 4.4-11.0 [facility] Comment on above: Performed By: #### L 100.0100, L500.4050 #### [facility] [address] [place], [address] Comprehensive Metabolic Prof ilon 02-07-2024 Albumin [Mass/Vol] 3.3 g/dL Normal 3.2-5.0 [facility] Comment on above: Performed By: #### L 100.0100, L500.4050 ####[facility] [address] [place], [address] Albumin/Globulin [Mass ratio] 0.8 {ratio} Low 0.9-2.4 [facility] Comment on above: Performed By: #### L 100.0100, L500.4050 ####[facility] [address] [place], [address] ALK P 71 U/L Normal 45-117 [facility] Comment on above: Performed By: #### L 100.0100, L500.4050 ####[facility] [address] [place], [address] ALT [Catalytic activity/Vol] 18 U/L Normal 13-56 [facility] Comment on above: Performed By: #### L 100.0100, L500.4050 ####[facility] [address] [place], [address] AST [Catalytic activity/Vol] 12 U/L Low 15-37 [facility] Comment on above: Performed By: #### L 100.0100, L500.4050 ####[facility] [address] [place], [address] Bilirubin [Mass/Vol] 0.30 mg/dL Normal 0.20-1.00 [facility] Comment on above: Result Comment: For patients on eltrombopag therapy, use of Dimension [place] TBIL is not recommended. Performed By: #### L 100.0100, L500.4050 ####[facility] [address] [place], [address] BUN/CRE 20.1 RATIO High 10-20 [facility] Comment on above: Performed By: #### L 100.0100, L500.4050 ####[facility] [address] [place], [address] CA,Total 8.9 mg/dL Normal 8.5-10.1 [facility] Comment on above: Performed By: #### L 100.0100, L500.4050 ####[facility] [address] [place], [address] Chloride [Moles/Vol] 102 mmol/L Normal 98-107 [facility] Comment on above: Performed By: #### L 100.0100, L500.4050 ####[facility] [address] [place], [address] CO2 [Moles/Vol] 29.0 mmol/L Normal 21.0-32.0 [facility] Comment on above: Performed By: #### L 100.0100, L500.4050 ####[facility] [address] [place], [address] Creatinine [Mass/Vol] 0.80 mg/dL Normal 0.55-1.02 [facility] Comment on above: Result Comment: The validity of the calculated GFR GFRAA in patients over 70 years has not been determined. Clinical correlation is essential. Performed By: #### L 100.0100, L500.4050 ####[facility] [address] [place], [address] EST GFR - AA 97 mL/min Normal >60 [facility] Comment on above: Result Comment: Afri can [place]ian GFR Calc Performed By: #### L 100.0100, L500.4050 ####[facility] [address] [place], [address] GAP 6 Normal 5-15 [facility] Comment on above: Performed By: #### L 100.0100, L500.4050 ####[facility] [address] [place], [address] GFR/1.73 sq M.predicted among non-blacks MDRD (S/P/Bld) [Vol rate/Area] 80 mL/min/{1.73_m2} Normal >60 [facility] Comment on above: Result Comment: Non- GFR Calc Performed By: #### L 100.0100, L500.4050 ####[facility] [address] [place], [address] Globulin (S) [Mass/Vol] 3.9 g/dL Normal 2.2-4.2 [facility] Comment on above: Performed By: #### L 100.0100, L500.4050 ####[facility] [address] [place], [address] Glucose [Mass/Vol] 141 mg/dL High 74-106 [facility] Comment on above: Result Comment: Fast ing Glucose result greater than or equal to 126 mg/dL suggests DIABETES MELLITUS per A.D.A. criteria. Performed By: #### L 100.0100, L500.4050 ####[facility] [address] [place], [address] Potassium [Moles/Vol] 3.7 mmol/L Normal 3.5-5.1 [facility] Comment on above: Performed By: #### L 100.0100, L500.4050 ####[facility] [address] [place], [address] Sodium [Moles/Vol] 137 mmol/L Normal 136-145 [facility] Comment on above: Performed By: #### L 100.0100, L500.4050 ####[facility] [address] [place], [address] T PROT 7.2 g/dL Normal 6.4-8.2 [facility] Comment on above: Performed By: #### L 100.0100, L500.4050 ####[facility] [address] [place], [address] Urea nitrogen [Mass/Vol] 16 mg/dL Normal 7-18 [facility] Comment on above: Performed By: #### L 100.0100, L500.4050 ####[facility] [address] [place], [address] Basophil percentageon 2023 Basophil percentage TNP [facility] Comment on above: Test not performed No Panel Informationon 06-25 Addendum Document Comment . [facility] Comment on above: The quantitative ran ge of this assay is 15 IU/mL to 100million IU/mL. Hepatitis B Surface Antigen Non-Reactive Nonreactive [facility] Hepatitis C Antibody Non-Reactive Nonreactive [facility] Comment on above: Non Reactive: < 0.8 Equivocal: >/= 0.8 to < 1.0 Reactive: >/= 1.0The CDC requires that a reactive/equivocal HCV antibody result be sent out for confirmation. HCV Quant by PCR testing. Qualitative QuantiFERON-TB g old in tube teston 06-26-2023 M. tuberculosis tuberculin stim IFN-g Ql (Bld) 0 IU/mL . [facility] Serum hepatitis B virus core antibody detectionon 06-26-2023 HBV core Ab Ql (S) Negative Negative [facility] Comment on above: Performed at: - [address] [id number] Director: Mat Marcos PhD, Phone: [phone] at: [facility] [id number] Director: Indigo Marcano MD, Phone: [phone] Serum hepatitis B virus surf lakshmi antibody IgG detectionon 06-26-2023 HBV surface IgG Ql (S) Non-Reactive [facility] Comment on above: Non Reactive: Incons istent with immunity less than <10 mIU/mL Reactive: Consistent with immunity greater than or equal to 10 mIU/mL Serum or plasma hepatitis C virus RNA measurement by probe and target amplification mon 06-26-2023 HCV RNA SHUBHAM+probe Qn Not detected . [facility] Thin prep Papanicolaou smear with manual screeningon 06-26-2023 Thin prep Papanicolaou smear with manual screening Comment . [facility] Comment on above: QuantiFERON-TB Gold Plus is a qualitative indirect test forM tuberculosis infection (including disease) and isintended for use in conjunction with risk assessment,radiography, and other medical and diagnostic evaluations.The QuantiFERON-TB Gold Plus result is determined bysubtracting the Nil value from either TB antigen (Ag)value. The Mitogen tube serves as a control for the test. Thin prep Papanicolaou smear with manual screening 0.01 IU/mL . [facility] Thin prep Papanicolaou smear with manual screening 0 IU/mL . [facility] Thin prep Papanicolaou smear with manual screening > 10.00 IU/mL . [facility] Thin prep Papanicolaou smear with manual screening Negative Negative [facility] Comment on above: No response to M tub erculosis antigens detected.Infection with M tuberculosis is unlikely, but high riskindividuals should be considered for additional testing(ATS/IDSA/CDC Clinical Practice Guidelines, 2017). Thereference range is an Antigen minus Nil result of <0.35IU/mL.The specimen received for QuantiFERON testing was incubatedby the ordering institution. Specific procedures outlinedin our Directory of Services and in the package insert forthe QuantiFERON Gold (In Tube) test must be followed toenable for proper stimulation of cells for the productionof interferon gamma. Chemiluminescence immunoassaymethodology Absolute lymphocyte countOrd ered By: Aurea Pritchard on 03-15-2023 Lymphocytes Auto (Unsp spec) [#/Vol] 2.37 10*3/uL 0.83-4.51 [facility] Basophil percentageOrdered B y: Aurea Pritchard on 03-15-2023 Basophils/100 WBC (Bld) 1.1 % 0-1 [facility] Bilirubin [Mass/Vol] 0.50 mg/dL 0.20-1.00 [facility] Comment on above: For patients on eltr ombopag therapy, use of Dimension [place] TBIL is not recommended. Chloride [Moles/Vol] 104 mmol/L 98-107 [facility] Eosinophils/100 WBC (Bld) 1.7 % 0-5 [facility] Glucose [Mass/Vol] 146 mg/dL 74-106 [facility] Comment on above: Fasting Glucose resu lt greater than or equal to 126 mg/dL suggests DIABETES MELLITUS per A.D.A. criteria. Neutrophils (Bld) [#/Vol] 7.4 10*3/uL 2.0-7.7 [facility] Neutrophils/100 WBC (Bld) 67.5 % 47-70 [facility] Potassium [Moles/Vol] 4.1 mmol/L 3.5-5.1 [facility] Protein [Mass/Vol] 8.0 g/dL 6.4-8.2 [facility] Sodium [Moles/Vol] 137 mmol/L 136-145 [facility] WBC (Bld) [#/Vol] 11.0 10*3/uL 4.4-11.0 [facility] Blood erythrocytes count (nu mber/volume)Ordered By: Aurea Pritchard on 03-15-2023 RBC (Bld) [#/Vol] 5.14 10*6/uL 4.2-5.4 [facility] Blood hemoglobin measurement (mass/volume)Ordered By: Aurea Pritchard on 03-15-2023 Hemoglobin (Bld) [Mass/Vol] 13.3 g/dL 12.0-15.0 [facility] Blood lymphocytes/100 leukoc ytesOrdered By: Aurea Pritchard on 03-15-2023 Lymphocytes/100 WBC (Bld) 21.6 % 19-41 [facility] Blood monocytes/100 leukocyt esOrdered By: Aurea Pritchard on 03-15-2023 Monocytes/100 WBC (Bld) 7.7 % 0-10 [facility] Blood platelet mean volumeOr dered By: Aurea Pritchard on 03-15-2023 Platelet mean volume (Bld) [Entitic vol] 10.8 fL 6.2-12.0 [facility] Determination of erythrocyte mean corpuscular volume (MCV)Ordered By: Aurea Pritchard on 03-15-2023 MCV (RBC) [Entitic vol] 83.9 fL 81-99 [facility] Hematocrit Auto (Bld) [Volum e fraction]Ordered By: Aurea Pritchard on 03-15-2023 Hematocrit (Bld) [Volume fraction] 43.1 % 37-47 [facility] - Chemistry and C hemistry - challengeOrdered By: Aurea Pritchard on 03-15-2023 ALP [Catalytic activity/Vol] 67 U/L 45-117 [facility] ALT [Catalytic activity/Vol] 29 U/L 13-56 [facility] CO2 [Moles/Vol] 25.0 mmol/L 21.0-32.0 [facility] Globulin (S) [Mass/Vol] 4.6 g/dL 2.2-4.2 [facility] Urea nitrogen/Creatinine [Mass ratio] 11.5 mg/mg 10-20 [facility] - Hematology and Cell countsOrdered By: Aurea Pritchard on 03-15-2023 Erythrocyte distribution width (RBC) [Entitic vol] 39.0 fL 35.1-43.9 [facility] Erythrocyte distribution width (RBC) [Ratio] 12.7 % 11.6-14.6 [facility] Immature granulocytes/100 WBC (Bld) 0.400 % 0.0-0.9 [facility] Comment on above: IG% - Immature Granu locytes (promyelocytes, myelocytes and metamyelocytes) > 1% indicates that a LEFT SHIFT is Present. MCH (RBC) [Entitic mass] 25.9 pg 27.0-32.0 [facility] Nucleated RBC/100 WBC (Bld) [Ratio] 0 % 0-5 [facility] MCHC Auto (RBC) [Mass/Vol]Or dered By: Aurea Pritchard on 03-15-2023 MCHC (RBC) [Mass/Vol] 30.9 g/dL 32-36 [facility] No Panel InformationOrdered By: Aurea Pritchard on 03-15-2023 Estimated GFR (MDRD) Amer 88 mL/min >60 [facility] Comment on above: GFR Calc Estimated GFR (MDRD) Non-Af Amer 73 mL/min >60 [facility] Comment on above: Non- GFR Calc Platelets bldOrdered By: Ramin Pritchard on 03-15-2023 Platelets (Bld) [#/Vol] 315 10*3/uL 150-450 [facility] Serum or plasma albumin brittanie urement (mass/volume)Ordered By: Aurea Pritchard on 03-15-2023 Albumin [Mass/Vol] 3.4 g/dL 3.2-5.0 [facility] Serum or plasma albumin/glob ulin mass ratioOrdered By: Aurea Pritchard on 03-15-2023 Albumin/Globulin [Mass ratio] 0.7 {ratio} 0.9-2.4 [facility] Serum or plasma calcium brittanie urement (mass/volume)Ordered By: Aurea Pritchard on 03-15-2023 Calcium [Mass/Vol] 8.6 mg/dL 8.5-10.1 [facility] Serum or plasma creatinine m easurement (mass/volume)Ordered By: Aurea Pritchard on 03-15-2023 Creatinine [Mass/Vol] 0.87 mg/dL 0.55-1.02 [facility] Comment on above: The validity of the calculated GFR & GFRAA in patients over 70 years has not been determined. Clinical correlation is essential. Serum or plasma urea nitroge n measurement (mass/volume)Ordered By: Aurea Pritchard on 03-15-2023 Urea nitrogen [Mass/Vol] 10 mg/dL 7-18 [facility] Thin prep Papanicolaou smear with manual screeningOrdered By: Aurea Pritchard on 03-15-2023 Thin prep Papanicolaou smear with manual screening 20 U/L 15-37 [facility] Thin prep Papanicolaou smear with manual screening 8 5-15 [facility] Absolute lymphocyte countOrd ered By: Aurea Pritchard on 12-20-2022 Lymphocytes Auto (Unsp spec) [#/Vol] 4.17 10*3/uL 0.83-4.51 [facility] Basophil percentageOrdered B y: Aurea Pritchard on 12-20-2022 Basophils/100 WBC (Bld) 1.0 % 0-1 [facility] Bilirubin [Mass/Vol] 0.20 mg/dL 0.20-1.00 [facility] Comment on above: For patients on eltr ombopag therapy, use of Dimension [place] TBIL is not recommended. Chloride [Moles/Vol] 102 mmol/L 98-107 [facility] Eosinophils/100 WBC (Bld) 2.4 % 0-5 [facility] Glucose [Mass/Vol] 139 mg/dL 74-106 [facility] Comment on above: Fasting Glucose resu lt greater than or equal to 126 mg/dL suggests DIABETES MELLITUS per A.D.A. criteria. Neutrophils (Bld) [#/Vol] 5.7 10*3/uL 2.0-7.7 [facility] Neutrophils/100 WBC (Bld) 52.8 % 47-70 [facility] Potassium [Moles/Vol] 3.8 mmol/L 3.5-5.1 [facility] Protein [Mass/Vol] 8.0 g/dL 6.4-8.2 [facility] Sodium [Moles/Vol] 138 mmol/L 136-145 [facility] WBC (Bld) [#/Vol] 10.7 10*3/uL 4.4-11.0 [facility] Blood erythrocytes count (nu mber/volume)Ordered By: Aurea Pritchard on 12-20-2022 RBC (Bld) [#/Vol] 5.09 10*6/uL 4.2-5.4 [facility] Blood hemoglobin measurement (mass/volume)Ordered By: Aurea Pritchard on 12-20-2022 Hemoglobin (Bld) [Mass/Vol] 13.6 g/dL 12.0-15.0 [facility] Blood lymphocytes/100 leukoc ytesOrdered By: Aurea Pritchard on 12-20-2022 Lymphocytes/100 WBC (Bld) 38.9 % 19-41 [facility] Blood monocytes/100 leukocyt esOrdered By: Aurea Pritchard on 12-20-2022 Monocytes/100 WBC (Bld) 4.7 % 0-10 [facility] Blood platelet mean volumeOr dered By: Aurea Pritchard on 12-20-2022 Platelet mean volume (Bld) [Entitic vol] 11.0 fL 6.2-12.0 [facility] Determination of erythrocyte mean corpuscular volume (MCV)Ordered By: Aurea Pritchard on 12-20-2022 MCV (RBC) [Entitic vol] 84.1 fL 81-99 [facility] Hematocrit Auto (Bld) [Volum e fraction]Ordered By: [facility]o on 12-20-2022 Hematocrit (Bld) [Volume fraction] 42.8 % 37-47 [facility] - Chemistry and C hemistry - challengeOrdered By: Aurearaymond Pritchard on 12-20-2022 ALP [Catalytic activity/Vol] 59 U/L 45-117 [facility] ALT [Catalytic activity/Vol] 54 U/L 13-56 [facility] CO2 [Moles/Vol] 29.0 mmol/L 21.0-32.0 [facility] Globulin (S) [Mass/Vol] 4.3 g/dL 2.2-4.2 [facility] Urea nitrogen/Creatinine [Mass ratio] 14.3 mg/mg 10-20 [facility] - Hematology and Cell countsOrdered By: [facility]o on 12-20-2022 Erythrocyte distribution width (RBC) [Entitic vol] 41.2 fL 35.1-43.9 [facility] Erythrocyte distribution width (RBC) [Ratio] 13.3 % 11.6-14.6 [facility] Immature granulocytes/100 WBC (Bld) 0.200 % 0.0-0.9 [facility] Comment on above: IG% - Immature Granu locytes (promyelocytes, myelocytes and metamyelocytes) > 1% indicates that a LEFT SHIFT is Present. MCH (RBC) [Entitic mass] 26.7 pg 27.0-32.0 [facility] Nucleated RBC/100 WBC (Bld) [Ratio] 0 % 0-5 [facility] MCHC Auto (RBC) [Mass/Vol]Or dered By: Aurearaymond Pritchard on 12-20-2022 MCHC (RBC) [Mass/Vol] 31.8 g/dL 32-36 [facility] No Panel InformationOrdered By: Aurearaymond Pritchard on 12-20-2022 Estimated GFR (MDRD) Amer 83 mL/min >60 [facility] Comment on above: GFR Calc Estimated GFR (MDRD) Non-Af Amer 69 mL/min >60 [facility] Comment on above: Non- GFR Calc Platelets bldOrdered By: Ramin Pritchard on 12-20-2022 Platelets (Bld) [#/Vol] 352 10*3/uL 150-450 [facility] Serum or plasma albumin brittanie urement (mass/volume)Ordered By: Aurea Pritchard on 12-20-2022 Albumin [Mass/Vol] 3.7 g/dL 3.2-5.0 [facility] Serum or plasma albumin/glob ulin mass ratioOrdered By: Aurea Pritchard on 12-20-2022 Albumin/Globulin [Mass ratio] 0.9 {ratio} 0.9-2.4 [facility] Serum or plasma calcium brittanie urement (mass/volume)Ordered By: Aurea Pritchard on 12-20-2022 Calcium [Mass/Vol] 9.7 mg/dL 8.5-10.1 [facility] Serum or plasma creatinine m easurement (mass/volume)Ordered By: Aurea Pritchard on 12-20-2022 Creatinine [Mass/Vol] 0.91 mg/dL 0.55-1.02 [facility] Comment on above: The validity of the calculated GFR & GFRAA in patients over 70 years has not been determined. Clinical correlation is essential. Serum or plasma urea nitroge n measurement (mass/volume)Ordered By: Aurea Pritchard on 12-20-2022 Urea nitrogen [Mass/Vol] 13 mg/dL 7-18 [facility] Thin prep Papanicolaou smear with manual screeningOrdered By: Aurea Pritchard on 12-20-2022 Thin prep Papanicolaou smear with manual screening 27 U/L 15-37 [facility] Thin prep Papanicolaou smear with manual screening 7 5-15 [facility] Albumin Elph [Mass/Vol]Order ed By: Nahum Villegas on 11-17-2022 Albumin [Mass/Vol] 3.6 g/dL 2.9-4.4 [facility] Basophil percentageOrdered B y: Nahum Villegas on 11-17-2022 Basophil percentage Comment . [facility] Comment on above: No monoclonality det ected.Performed at: [facility] [address] [id number] Director: Mat Marcos PhD, Phone: [phone] Interpretation of serum or p lasma protein pattern by immunofixation (narrative resultOrdered By: Nahum Villegas on 11-17-2022 Protein Fractions Immunofixation Jah [Interp] See comment [facility] Comment on above: SPE shows asymmetric al gamma. No Panel InformationOrdered By: Nahum Villegas on 11-17-2022 Addendum Document Comment . [facility] Comment on above: Protein electrophore sis scan will follow via computer,mail, or oil changer delivery. Serum [id number] measu rement by electrophoresisOrdered By: Nahum Villegas on 11-17-2022 Alpha 1 globulin Elph [Mass/Vol] 0.2 g/dL 0.0-0.4 [facility] Alpha 1 globulin Elph [Mass/Vol] 0.9 g/dL 0.4-1.0 [facility] Serum globulin measurement ( mass/volume)Ordered By: Nahum Villegas on 11-17-2022 Globulin (S) [Mass/Vol] 3.5 g/dL 2.2-3.9 [facility] Serum or plasma IgA measurem ent (mass/volume)Ordered By: Nahum Villegas on 11-17-2022 IgA [Mass/Vol] 365 mg/dL 87-352 [facility] Serum or plasma IgG measurem ent (mass/volume)Ordered By: Nahum Villegas on 11-17-2022 IgG [Mass/Vol] 1155 mg/dL 586-1602 [facility] Serum or plasma IgM measurem ent (mass/volume)Ordered By: Nahum Villegas on 11-17-2022 IgM [Mass/Vol] 193 mg/dL 26-217 [facility] Serum or plasma beta globuli n measurement by electrophoresis (mass/volume)Ordered By: Nahum Villegas on 11-17-2022 Beta globulin Elph [Mass/Vol] 1.3 g/dL 0.7-1.3 [facility] Serum or plasma gamma globul in measurement by electrophoresis (mass/volume)Ordered By: Nahum Villegas on 11-17-2022 Gamma globulin Elph [Mass/Vol] 1.1 g/dL 0.4-1.8 [facility] Serum or plasma immunoelectr ophoresis interpretation (nominal result)Ordered By: Nahum Villegas on 11-17-2022 Interpretation IEP [Interp] Comment . [facility] Comment on above: No monoclonality det ected. Thin prep Papanicolaou smear with manual screeningOrdered By: Nahum Villegas on 11-17-2022 Thin prep Papanicolaou smear with manual screening 1.1 0.7-1.7 [facility] Total protein bloodOrdered B y: Nahum Villegas on 11-17-2022 Protein [Mass/Vol] 7.1 g/dL 6.0-8.5 [facility] Absolute lymphocyte countOrd ered By: [facility] on 09-23-2022 Lymphocytes Auto (Unsp spec) [#/Vol] 3.82 10*3/uL 0.83-4.51 [facility] Basophil percentageOrdered B y: Aurea Pritchard on 09-23-2022 Basophils/100 WBC (Bld) 1.0 % 0-1 [facility] Bilirubin [Mass/Vol] 0.30 mg/dL 0.20-1.00 [facility] Comment on above: For patients on eltr ombopag therapy, use of Dimension [place] TBIL is not recommended. Chloride [Moles/Vol] 106 mmol/L 98-107 [facility] Eosinophils/100 WBC (Bld) 2.2 % 0-5 [facility] Glucose [Mass/Vol] 219 mg/dL 74-106 [facility] Comment on above: Glucose result great er than or equal to 200 mg/dLsuggests DIABETES MELLITUS per A.D.A. criteria. Neutrophils (Bld) [#/Vol] 5.9 10*3/uL 2.0-7.7 [facility] Neutrophils/100 WBC (Bld) 54.4 % 47-70 [facility] Potassium [Moles/Vol] 3.8 mmol/L 3.5-5.1 [facility] Protein [Mass/Vol] 7.2 g/dL 6.4-8.2 [facility] Sodium [Moles/Vol] 137 mmol/L 136-145 [facility] WBC (Bld) [#/Vol] 10.8 10*3/uL 4.4-11.0 [facility] Blood erythrocytes count (nu mber/volume)Ordered By: Aurea Pritchard on 09-23-2022 RBC (Bld) [#/Vol] 4.90 10*6/uL 4.2-5.4 [facility] Blood hemoglobin measurement (mass/volume)Ordered By: Aurea Pritchard on 09-23-2022 Hemoglobin (Bld) [Mass/Vol] 12.9 g/dL 12.0-15.0 [facility] Blood lymphocytes/100 leukoc ytesOrdered By: Aurea Pritchard on 09-23-2022 Lymphocytes/100 WBC (Bld) 35.5 % 19-41 [facility] Blood monocytes/100 leukocyt esOrdered By: Aurea Pritchard on 09-23-2022 Monocytes/100 WBC (Bld) 6.4 % 0-10 [facility] Blood platelet mean volumeOr dered By: Aurea Pritchard on 09-23-2022 Platelet mean volume (Bld) [Entitic vol] 10.9 fL 6.2-12.0 [facility] Determination of erythrocyte mean corpuscular volume (MCV)Ordered By: Aurea Pritchard on 09-23-2022 MCV (RBC) [Entitic vol] 83.3 fL 81-99 [facility] Hematocrit Auto (Bld) [Volum e fraction]Ordered By: Aurea Pritchard on 09-23-2022 Hematocrit (Bld) [Volume fraction] 40.8 % 37-47 [facility] Laboratory - Chemistry and C hemistry - challengeOrdered By: Aurearaymond Pritchard on 09-23-2022 ALP [Catalytic activity/Vol] 53 U/L 45-117 [facility] ALT [Catalytic activity/Vol] 61 U/L 13-56 [facility] CO2 [Moles/Vol] 24.0 mmol/L 21.0-32.0 [facility] Globulin (S) [Mass/Vol] 4.1 g/dL 2.2-4.2 [facility] Urea nitrogen/Creatinine [Mass ratio] 15.8 mg/mg 10-20 [facility] - Hematology and Cell countsOrdered By: Aurea Pritchard on 09-23-2022 Erythrocyte distribution width (RBC) [Entitic vol] 39.3 fL 35.1-43.9 [facility] Erythrocyte distribution width (RBC) [Ratio] 13.2 % 11.6-14.6 [facility] Immature granulocytes/100 WBC (Bld) 0.500 % 0.0-0.9 [facility] Comment on above: IG% - Immature Granu locytes (promyelocytes, myelocytes and metamyelocytes) > 1% indicates that a LEFT SHIFT is Present. MCH (RBC) [Entitic mass] 26.3 pg 27.0-32.0 [facility] Nucleated RBC/100 WBC (Bld) [Ratio] 0 % 0-5 [facility] MCHC Auto (RBC) [Mass/Vol]Or dered By: Aurea Pritchard on 09-23-2022 MCHC (RBC) [Mass/Vol] 31.6 g/dL 32-36 [facility] No Panel InformationOrdered By: Aurea Pritchard on 09-23-2022 Estimated GFR (MDRD) Amer 94 mL/min >60 [facility] Comment on above: GFR Calc Estimated GFR (MDRD) Non-Af Amer 78 mL/min >60 [facility] Comment on above: Non- GFR Calc Platelets bldOrdered By: Ramin Pritchard on 09-23-2022 Platelets (Bld) [#/Vol] 350 10*3/uL 150-450 [facility] Serum or plasma albumin brittanie urement (mass/volume)Ordered By: Aurea Pritchard on 09-23-2022 Albumin [Mass/Vol] 3.1 g/dL 3.2-5.0 [facility] Serum or plasma albumin/glob ulin mass ratioOrdered By: Aurea Pritchard on 09-23-2022 Albumin/Globulin [Mass ratio] 0.8 {ratio} 0.9-2.4 [facility] Serum or plasma calcium brittanie urement (mass/volume)Ordered By: Aurea Pritchard on 09-23-2022 Calcium [Mass/Vol] 8.7 mg/dL 8.5-10.1 [facility] Serum or plasma creatinine m easurement (mass/volume)Ordered By: Aurea Pritchard on 09-23-2022 Creatinine [Mass/Vol] 0.82 mg/dL 0.55-1.02 [facility] Comment on above: The validity of the calculated GFR & GFRAA in patients over 70 years has not been determined. Clinical correlation is essential. Serum or plasma urea nitroge n measurement (mass/volume)Ordered By: Aurea Pritchard on 09-23-2022 Urea nitrogen [Mass/Vol] 13 mg/dL 10-18 [facility] Thin prep Papanicolaou smear with manual screeningOrdered By: Aurea Pritchard on 09-23-2022 Thin prep Papanicolaou smear with manual screening 32 U/L 15-37 [facility] Thin prep Papanicolaou smear with manual screening 7 5-15 [facility] Basophil percentageOrdered B y: Dr. Villegas on 07-19-2022 Bilirubin [Mass/Vol] 0.50 mg/dL 0.20-1.00 [facility] Comment on above: For patients on eltr ombopag therapy, use of Dimension [place] TBIL is not recommended. Chloride [Moles/Vol] 102 mmol/L 98-107 [facility] Cholesterol [Mass/Vol] 165 mg/dL <200 [facility] Comment on above: <200 mg/dL Desirable 200-240 mg/dL Borderline >240 mg/dL High Risk Glucose [Mass/Vol] 224 mg/dL 74-106 [facility] Comment on above: Glucose result great er than or equal to 200 mg/dLsuggests DIABETES MELLITUS per A.D.A. criteria. Potassium [Moles/Vol] 3.8 mmol/L 3.5-5.1 [facility] Protein [Mass/Vol] 8.0 g/dL 6.4-8.2 [facility] Sodium [Moles/Vol] 133 mmol/L 136-145 [facility] Triglyceride [Mass/Vol] 167 mg/dL <199 [facility] Comment on above: The drugs N-Acetylcy steine and Metamizole may falsely depress this assay.Serum Triglycerides Reference Interval Normal <150 mg/dL Borderline high 150 - 199 mg/dL High 200 - 499 mg/dL Very High > or = 500 mg/dL WBC (Bld) [#/Vol] 15.5 10*3/uL 4.4-11.0 [facility] Blood erythrocytes count (nu mber/volume)Ordered By: Dr. Villegas on 07-19-2022 RBC (Bld) [#/Vol] 5.85 10*6/uL 4.2-5.4 [facility] Blood hemoglobin measurement (mass/volume)Ordered By: Dr. Villegas on 07-19-2022 Hemoglobin (Bld) [Mass/Vol] 15.4 g/dL 12.0-15.0 [facility] Blood platelet mean volumeOr dered By: Dr. Villegas on 07-19-2022 Platelet mean volume (Bld) [Entitic vol] 11.1 fL 6.2-12.0 [facility] Determination of erythrocyte mean corpuscular volume (MCV)Ordered By: Dr. Villegas on 07-19-2022 MCV (RBC) [Entitic vol] 81.0 fL 81-99 [facility] Hematocrit Auto (Bld) [Volum e fraction]Ordered By: Dr. Villegas on 07-19-2022 Hematocrit (Bld) [Volume fraction] 47.4 % 37-47 [facility] - Chemistry and C hemistry - challengeOrdered By: Dr. Villegas on 07-19-2022 ALP [Catalytic activity/Vol] 60 U/L 45-117 [facility] ALT [Catalytic activity/Vol] 142 U/L 13-56 [facility] CO2 [Moles/Vol] 23.0 mmol/L 21.0-32.0 [facility] Cobalamin (Vitamin B12) [Mass/Vol] 1399 pg/mL 211-911 [facility] Globulin (S) [Mass/Vol] 4.5 g/dL 2.2-4.2 [facility] Urea nitrogen/Creatinine [Mass ratio] 21.0 mg/mg 10-20 [facility] - Hematology and Cell countsOrdered By: Dr. Villegas on 07-19-2022 Erythrocyte distribution width (RBC) [Entitic vol] 38.4 fL 35.1-43.9 [facility] Erythrocyte distribution width (RBC) [Ratio] 13.1 % 11.6-14.6 [facility] MCH (RBC) [Entitic mass] 26.3 pg 27.0-32.0 [facility] MCHC Auto (RBC) [Mass/Vol]Or dered By: Dr. Villegas on 07-19-2022 MCHC (RBC) [Mass/Vol] 32.5 g/dL 32-36 [facility] No Panel InformationOrdered By: Dr. Villegas on 07-19-2022 Estimated GFR (MDRD) Amer 75 mL/min >60 [facility] Comment on above: GFR Calc Estimated GFR (MDRD) Non-Af Amer 62 mL/min >60 [facility] Comment on above: Non- GFR Calc Free Lambda Light Chains, Quant 21.1 mg/L 5.7-26.3 [facility] Thyroid Stimulating Hormone (TSH) 1.98 uIU/mL 0.358-3.74 [facility] Whole Blood Vitamin B1 Level 268.5 nmol/L 66.5-200.0 [facility] Comment on above: Performed at: [employer] [facility] [employer] [address] [id number] Director: Mat Marcos PhD, Phone: [phone] at: [facility] [employer] [id number] Director: Indigo Marcano MD, Phone: [phone] Platelets bldOrdered By: Dr. Villegas on 07-19-2022 Platelets (Bld) [#/Vol] 357 10*3/uL 150-450 [facility] Serum immunoglobulin kappa l ight chains/immunoglobulin lambda light chains mass ratioOrdered By: Dr. Villegas on 07-19-2022 Immunoglobulin light chains.kappa/Immunoglobu pamella light chains.lambda (S) [Mass ratio] 1.09 0.26-1.65 [facility] Serum or plasma albumin brittanie urement (mass/volume)Ordered By: Dr. Villegas on 07-19-2022 Albumin [Mass/Vol] 3.5 g/dL 3.2-5.0 [facility] Serum or plasma albumin/glob ulin mass ratioOrdered By: Dr. Villegas on 07-19-2022 Albumin/Globulin [Mass ratio] 0.8 {ratio} 0.9-2.4 [facility] Serum or plasma calcium brittanie urement (mass/volume)Ordered By: Dr. Villegas on 07-19-2022 Calcium [Mass/Vol] 9.0 mg/dL 8.5-10.1 [facility] Serum or plasma cholesterol in HDL measurement (mass/volume)Ordered By: Dr. Villegas on 07-19-2022 Cholesterol in HDL [Mass/Vol] 61 mg/dL >40 [facility] Comment on above: The drugs N-Acetylcy steine and Metamizole may falsely depress this assay. Reference Range HDL <40 mg/dL Low HDL Cholesterol HDL >or= 60 mg/dL High HDL Cholesterol Serum or plasma cholesterol in VLDL measurement (mass/volume)Ordered By: Dr. Villegas on 07-19-2022 Cholesterol in VLDL [Mass/Vol] 33 mg/dL 5-40 [facility] Serum or plasma creatinine m easurement (mass/volume)Ordered By: Dr. Villegas on 07-19-2022 Creatinine [Mass/Vol] 1.00 mg/dL 0.55-1.02 [facility] Comment on above: The validity of the calculated GFR & GFRAA in patients over 70 years has not been determined. Clinical correlation is essential. Serum or plasma folate measu rement (mass/volume)Ordered By: Dr. Villegas on 07-19-2022 Folate [Mass/Vol] 20.10 ng/mL 3.1-55.4 [facility] Comment on above: Slight Hemolysis, Re sult may be falsely increased. Serum or plasma immunoglobul in kappa light chains measurement (mass/volume)Ordered By: Dr. Villegas on 07-19-2022 Immunoglobulin light chains.kappa [Mass/Vol] 23.1 mg/L 3.3-19.4 [facility] Serum or plasma low density lipoprotein (LDL) cholesterol measurement (mass/volume)Ordered By: Dr. Villegas on 07-19-2022 Cholesterol in LDL [Mass/Vol] 71 mg/dL 0-130 [facility] Serum or plasma urea nitroge n measurement (mass/volume)Ordered By: Dr. Villegas on 07-19-2022 Urea nitrogen [Mass/Vol] 21 mg/dL 7-18 [facility] Thin prep Papanicolaou smear with manual screeningOrdered By: Dr. Villegas on 07-19-2022 Thin prep Papanicolaou smear with manual screening 81 U/L 15-37 [facility] Thin prep Papanicolaou smear with manual screening 8 5-15 [facility] Whole blood hemoglobin A1c/t otal hemoglobin ratio (mass fraction)Ordered By: Dr. Villegas on 07-19-2022 HbA1c (Bld) [Mass fraction] 10.3 % 3.8-5.6 [facility] Comment on above: Normal < 5.7 % Predi abetic 5.7 - 6.4 % Diabetic >or= 6.5 % Please note range changes. Absolute lymphocyte countOrd ered By: Dr. Pritchard on 06-27-2022 Lymphocytes Auto (Unsp spec) [#/Vol] 4.09 10*3/uL 0.83-4.51 [facility] Basophil percentageOrdered B y: Dr. Pritchard on 06-27-2022 Basophils/100 WBC (Bld) 1.2 % 0-1 [facility] Bilirubin [Mass/Vol] 0.30 mg/dL 0.20-1.00 [facility] Comment on above: For patients on eltr ombopag therapy, use of Dimension [place] TBIL is not recommended. Chloride [Moles/Vol] 101 mmol/L 98-107 [facility] Eosinophils/100 WBC (Bld) 1.4 % 0-5 [facility] Glucose [Mass/Vol] 322 mg/dL 74-106 [facility] Comment on above: Glucose result great er than or equal to 200 mg/dLsuggests DIABETES MELLITUS per A.D.A. criteria. Neutrophils (Bld) [#/Vol] 6.6 10*3/uL 2.0-7.7 [facility] Neutrophils/100 WBC (Bld) 56.2 % 47-70 [facility] Potassium [Moles/Vol] 4.4 mmol/L 3.5-5.1 [facility] Protein [Mass/Vol] 8.4 g/dL 6.4-8.2 [facility] Sodium [Moles/Vol] 133 mmol/L 136-145 [facility] WBC (Bld) [#/Vol] 11.8 10*3/uL 4.4-11.0 [facility] Blood erythrocytes count (nu mber/volume)Ordered By: Dr. Pritchard on 06-27-2022 RBC (Bld) [#/Vol] 5.56 10*6/uL 4.2-5.4 [facility] Blood hemoglobin measurement (mass/volume)Ordered By: Dr. Pritchard on 06-27-2022 Hemoglobin (Bld) [Mass/Vol] 14.8 g/dL 12.0-15.0 [facility] Blood lymphocytes/100 leukoc ytesOrdered By: Dr. Pritchard on 06-27-2022 Lymphocytes/100 WBC (Bld) 34.8 % 19-41 [facility] Blood monocytes/100 leukocyt esOrdered By: Dr. Pritchard on 06-27-2022 Monocytes/100 WBC (Bld) 5.9 % 0-10 [facility] Blood platelet mean volumeOr dered By: Dr. Pritchard on 06-27-2022 Platelet mean volume (Bld) [Entitic vol] 11.1 fL 6.2-12.0 [facility] Determination of erythrocyte mean corpuscular volume (MCV)Ordered By: Dr. Pritchard on 06-27-2022 MCV (RBC) [Entitic vol] 81.7 fL 81-99 [facility] Hematocrit Auto (Bld) [Volum e fraction]Ordered By: Dr. Pritchard on 06-27-2022 Hematocrit (Bld) [Volume fraction] 45.4 % 37-47 [facility] - Chemistry and C hemistry - challengeOrdered By: Dr. Pritchard on 06-27-2022 ALP [Catalytic activity/Vol] 77 U/L 45-117 [facility] ALT [Catalytic activity/Vol] 126 U/L 13-56 [facility] CO2 [Moles/Vol] 22.0 mmol/L 21.0-32.0 [facility] Globulin (S) [Mass/Vol] 4.8 g/dL 2.2-4.2 [facility] Urea nitrogen/Creatinine [Mass ratio] 16.0 mg/mg 10-20 [facility] - Hematology and Cell countsOrdered By: Dr. Pritchard on 06-27-2022 Erythrocyte distribution width (RBC) [Entitic vol] 37.8 fL 35.1-43.9 [facility] Erythrocyte distribution width (RBC) [Ratio] 12.9 % 11.6-14.6 [facility] Immature granulocytes/100 WBC (Bld) 0.500 % 0.0-0.9 [facility] Comment on above: IG% - Immature Granu locytes (promyelocytes, myelocytes and metamyelocytes) > 1% indicates that a LEFT SHIFT is Present. MCH (RBC) [Entitic mass] 26.6 pg 27.0-32.0 [facility] Nucleated RBC/100 WBC (Bld) [Ratio] 0 % 0-5 [facility] MCHC Auto (RBC) [Mass/Vol]Or dered By: Dr. Pritchard on 06-27-2022 MCHC (RBC) [Mass/Vol] 32.6 g/dL 32-36 [facility] No Panel InformationOrdered By: Dr. Pritchard on 06-27-2022 Estimated GFR (MDRD) Amer 70 mL/min >60 [facility] Comment on above: GFR Calc Estimated GFR (MDRD) Non-Af Amer 58 mL/min >60 [facility] Comment on above: Non- GFR Calc Platelets bldOrdered By: Dr. Pritchard on 06-27-2022 Platelets (Bld) [#/Vol] 404 10*3/uL 150-450 [facility] Serum or plasma albumin brittanie urement (mass/volume)Ordered By: Dr. Pritchard on 06-27-2022 Albumin [Mass/Vol] 3.6 g/dL 3.2-5.0 [facility] Serum or plasma albumin/glob ulin mass ratioOrdered By: Dr. Pritchard on 06-27-2022 Albumin/Globulin [Mass ratio] 0.8 {ratio} 0.9-2.4 [facility] Serum or plasma calcium brittanie urement (mass/volume)Ordered By: Dr. Pritchard on 06-27-2022 Calcium [Mass/Vol] 9.8 mg/dL 8.5-10.1 [facility] Serum or plasma creatinine m easurement (mass/volume)Ordered By: Dr. Pritchard on 06-27-2022 Creatinine [Mass/Vol] 1.06 mg/dL 0.55-1.02 [facility] Comment on above: The validity of the calculated GFR & GFRAA in patients over 70 years has not been determined. Clinical correlation is essential. Serum or plasma urea nitroge n measurement (mass/volume)Ordered By: Dr. Pritchard on 06-27-2022 Urea nitrogen [Mass/Vol] 17 mg/dL 7-18 [facility] Thin prep Papanicolaou smear with manual screeningOrdered By: Dr. Pritchard on 06-27-2022 Thin prep Papanicolaou smear with manual screening 72 U/L 15-37 [facility] Thin prep Papanicolaou smear with manual screening 10 5-15 [facility] Absolute lymphocyte counton 03-02-2022 Lymphocytes Auto (Unsp spec) [#/Vol] 4.16 10*3/uL 0.83-4.51 [facility] Work Phone: Basophil percentageon 2021 Basophils/100 WBC (Bld) 0.8 % 0-1 [facility] Work Phone: Bilirubin [Mass/Vol] 0.20 mg/dL 0.20-1.00 [facility] Work Phone: Comment on above: For patients on eltr ombopag therapy, use of Dimension [place] TBIL is not recommended. Chloride [Moles/Vol] 101 mmol/L 98-107 [facility] Work Phone: Eosinophils/100 WBC (Bld) 3.2 % 0-5 [facility] Work Phone: Glucose [Mass/Vol] 165 mg/dL 74-106 [facility] Work Phone: Comment on above: Fasting Glucose resu lt greater than or equal to 126 mg/dL suggests DIABETES MELLITUS per A.D.A. criteria. Neutrophils (Bld) [#/Vol] 5.9 10*3/uL 2.0-7.7 [facility] Work Phone: Neutrophils/100 WBC (Bld) 52.6 % 47-70 [facility] Work Phone: Potassium [Moles/Vol] 3.9 mmol/L 3.5-5.1 [facility] Work Phone: Protein [Mass/Vol] 7.1 g/dL 6.4-8.2 [facility] Work Phone: Sodium [Moles/Vol] 137 mmol/L 136-145 [facility] Work Phone: WBC (Bld) [#/Vol] 11.1 10*3/uL 4.4-11.0 [facility] Work Phone: Blood erythrocytes count (nu mber/volume)on 03-02-2022 RBC (Bld) [#/Vol] 4.87 10*6/uL 4.2-5.4 [facility] Work Phone: Blood hemoglobin measurement (mass/volume)on 03-02-2022 Hemoglobin (Bld) [Mass/Vol] 13.1 g/dL 12.0-15.0 [facility] Work Phone: Blood lymphocytes/100 leukoc yteson 03-02-2022 Lymphocytes/100 WBC (Bld) 37.4 % 19-41 [facility] Work Phone: Blood monocytes/100 leukocyt eson 03-02-2022 Monocytes/100 WBC (Bld) 5.6 % 0-10 [facility] Work Phone: Blood platelet mean volumeon 03-02-2022 Platelet mean volume (Bld) [Entitic vol] 10.9 fL 6.2-12.0 [facility] Work Phone: Determination of erythrocyte mean corpuscular volume (MCV)on 03-02-2022 MCV (RBC) [Entitic vol] 85.0 fL 81-99 [facility] Work Phone: Hematocrit Auto (Bld) [Volum e fraction]on 03-02-2022 Hematocrit (Bld) [Volume fraction] 41.4 % 37-47 [facility] Work Phone: [phone] Laboratory - Chemistry and C hemistry - challengeon 03-02-2022 ALP [Catalytic activity/Vol] 70 U/L 45-117 [facility] Work Phone: ALT [Catalytic activity/Vol] 40 U/L 13-56 [facility] Work Phone: [phone] CO2 [Moles/Vol] 30.0 mmol/L 21.0-32.0 [facility] Work Phone: [phone] Globulin (S) [Mass/Vol] 3.8 g/dL 2.2-4.2 [facility] Work Phone: [phone] Urea nitrogen/Creatinine [Mass ratio] 23.8 mg/mg 10-20 [facility] Work Phone: [phone] Laboratory - Hematology and Cell countson 03-02-2022 Erythrocyte distribution width (RBC) [Entitic vol] 39.8 fL 35.1-43.9 [facility] Work Phone: [phone] Erythrocyte distribution width (RBC) [Ratio] 12.9 % 11.6-14.6 [facility] Work Phone: [phone] Immature granulocytes/100 WBC (Bld) 0.400 % 0.0-0.9 [facility] Work Phone: [phone] Comment on above: IG% - Immature Granu locytes (promyelocytes, myelocytes and metamyelocytes) > 1% indicates that a LEFT SHIFT is Present. MCH (RBC) [Entitic mass] 26.9 pg 27.0-32.0 [facility] Work Phone: [phone] Nucleated RBC/100 WBC (Bld) [Ratio] 0 % 0-5 [facility] Work Phone: [phone] MCHC Auto (RBC) [Mass/Vol]on 03-02-2022 MCHC (RBC) [Mass/Vol] 31.6 g/dL 32-36 [facility] Work Phone: No Panel Informationon 03-02 Estimated GFR (MDRD) Amer 97 mL/min >60 [facility] Work Phone: Comment on above: GFR Calc Estimated GFR (MDRD) Non-Af Amer 80 mL/min >60 [facility] Work Phone: Comment on above: Non- GFR Calc Platelets bldon 03-02-2022 Platelets (Bld) [#/Vol] 363 10*3/uL 150-450 [facility] Work Phone: Serum or plasma albumin brittanie urement (mass/volume)on 03-02-2022 Albumin [Mass/Vol] 3.3 g/dL 3.2-5.0 [facility] Work Phone: Serum or plasma albumin/glob ulin mass ratioon 03-02-2022 Albumin/Globulin [Mass ratio] 0.9 {ratio} 0.9-2.4 [facility] Work Phone: Serum or plasma calcium brittanie urement (mass/volume)on 03-02-2022 Calcium [Mass/Vol] 9.2 mg/dL 8.5-10.1 [facility] Work Phone: Serum or plasma creatinine m easurement (mass/volume)on 03-02-2022 Creatinine [Mass/Vol] 0.80 mg/dL 0.55-1.02 [facility] Work Phone: Comment on above: The validity of the calculated GFR & GFRAA in patients over 70 years has not been determined. Clinical correlation is essential. Serum or plasma urea nitroge n measurement (mass/volume)on 03-02-2022 Urea nitrogen [Mass/Vol] 19 mg/dL 7-18 [facility] Work Phone: Thin prep Papanicolaou smear with manual screeningon 03-02-2022 Thin prep Papanicolaou smear with manual screening 18 U/L 15-37 [facility] Work Phone: Thin prep Papanicolaou smear with manual screening 6 5-15 [facility] Work Phone: Absolute lymphocyte counton 11-05-2021 Lymphocytes Auto (Unsp spec) [#/Vol] 2.80 10*3/uL 0.83-4.51 [facility] Work Phone: Basophil percentageon 2021 Basophils/100 WBC (Bld) 1.4 % 0-1 [facility] Work Phone: Bilirubin [Mass/Vol] 0.40 mg/dL 0.20-1.00 [facility] Work Phone: Comment on above: For patients on eltr ombopag therapy, use of Dimension [place] TBIL is not recommended. Chloride [Moles/Vol] 105 mmol/L 98-107 [facility] Work Phone: Eosinophils/100 WBC (Bld) 3.6 % 0-5 [facility] Work Phone: [phone] Glucose [Mass/Vol] 160 mg/dL 74-106 [facility] Work Phone: Comment on above: Fasting Glucose resu lt greater than or equal to 126 mg/dL suggests DIABETES MELLITUS per A.D.A. criteria. Neutrophils (Bld) [#/Vol] 5.0 10*3/uL 2.0-7.7 [facility] Work Phone: Neutrophils/100 WBC (Bld) 57.0 % 47-70 [facility] Work Phone: Potassium [Moles/Vol] 4.2 mmol/L 3.5-5.1 [facility] Work Phone: Protein [Mass/Vol] 7.8 g/dL 6.4-8.2 [facility] Work Phone: Sodium [Moles/Vol] 137 mmol/L 136-145 [facility] Work Phone: WBC (Bld) [#/Vol] 8.8 10*3/uL 4.4-11.0 [facility] Work Phone: Blood erythrocytes count (nu mber/volume)on 11-05-2021 RBC (Bld) [#/Vol] 5.14 10*6/uL 4.2-5.4 [facility] Work Phone: Blood hemoglobin measurement (mass/volume)on 11-05-2021 Hemoglobin (Bld) [Mass/Vol] 13.9 g/dL 12.0-15.0 [facility] Work Phone: Blood lymphocytes/100 leukoc yteson 11-05-2021 Lymphocytes/100 WBC (Bld) 31.7 % 19-41 [facility] Work Phone: Blood monocytes/100 leukocyt eson 11-05-2021 Monocytes/100 WBC (Bld) 6.0 % 0-10 [facility] Work Phone: Blood platelet mean volumeon 11-05-2021 Platelet mean volume (Bld) [Entitic vol] 11.0 fL 6.2-12.0 [facility] Work Phone: Determination of erythrocyte mean corpuscular volume (MCV)on 11-05-2021 MCV (RBC) [Entitic vol] 83.3 fL 81-99 [facility] Work Phone: Hematocrit Auto (Bld) [Volum e fraction]on 11-05-2021 Hematocrit (Bld) [Volume fraction] 42.8 % 37-47 [facility] Work Phone: Laboratory - Chemistry and C hemistry - challengeon 11-05-2021 ALP [Catalytic activity/Vol] 61 U/L 45-117 [facility] Work Phone: ALT [Catalytic activity/Vol] 46 U/L 13-56 [facility] Work Phone: CO2 [Moles/Vol] 26.0 mmol/L 21.0-32.0 [facility] Work Phone: Globulin (S) [Mass/Vol] 4.3 g/dL 2.2-4.2 [facility] Work Phone: Urea nitrogen/Creatinine [Mass ratio] 10.4 mg/mg 10-20 [facility] Work Phone: Laboratory - Hematology and Cell countson 11-05-2021 Erythrocyte distribution width (RBC) [Entitic vol] 40.1 fL 35.1-43.9 [facility] Work Phone: Erythrocyte distribution width (RBC) [Ratio] 13.2 % 11.6-14.6 [facility] Work Phone: Immature granulocytes/100 WBC (Bld) 0.300 % 0.0-0.9 [facility] Work Phone: Comment on above: IG% - Immature Granu locytes (promyelocytes, myelocytes and metamyelocytes) > 1% indicates that a LEFT SHIFT is Present. MCH (RBC) [Entitic mass] 27.0 pg 27.0-32.0 [facility] Work Phone: Nucleated RBC/100 WBC (Bld) [Ratio] 0 % 0-5 [facility] Work Phone: MCHC Auto (RBC) [Mass/Vol]on 11-05-2021 MCHC (RBC) [Mass/Vol] 32.5 g/dL 32-36 [facility] Work Phone: No Panel Informationon 11-05 Estimated GFR (MDRD) Amer 88 mL/min >60 [facility] Work Phone: Comment on above: GFR Calc Estimated GFR (MDRD) Non-Af Amer 73 mL/min >60 [facility] Work Phone: Comment on above: Non- GFR Calc Platelets bldon 11-05-2021 Platelets (Bld) [#/Vol] 360 10*3/uL 150-450 [facility] Work Phone: Serum or plasma albumin brittanie urement (mass/volume)on 11-05-2021 Albumin [Mass/Vol] 3.5 g/dL 3.2-5.0 [facility] Work Phone: Serum or plasma albumin/glob ulin mass ratioon 11-05-2021 Albumin/Globulin [Mass ratio] 0.8 {ratio} 0.9-2.4 [facility] Work Phone: Serum or plasma calcium brittanie urement (mass/volume)on 11-05-2021 Calcium [Mass/Vol] 9.0 mg/dL 8.5-10.1 [facility] Work Phone: Serum or plasma creatinine m easurement (mass/volume)on 11-05-2021 Creatinine [Mass/Vol] 0.87 mg/dL 0.55-1.02 [facility] Work Phone: Comment on above: The validity of the calculated GFR & GFRAA in patients over 70 years has not been determined. Clinical correlation is essential. Serum or plasma urea nitroge n measurement (mass/volume)on 11-05-2021 Urea nitrogen [Mass/Vol] 9 mg/dL 7-18 [facility] Work Phone: Thin prep Papanicolaou smear with manual screeningon 11-05-2021 Thin prep Papanicolaou smear with manual screening 25 U/L 15-37 [facility] Work Phone: Thin prep Papanicolaou smear with manual screening 6 5-15 [facility] Work Phone: Absolute lymphocyte counton 07-08-2021 Lymphocytes Auto (Unsp spec) [#/Vol] 4.17 10*3/uL 0.83-4.51 [facility] Work Phone: Basophil percentageon 2021 Basophils/100 WBC (Bld) 1.3 % 0-1 [facility] Work Phone: Bilirubin [Mass/Vol] 0.20 mg/dL 0.20-1.00 [facility] Work Phone: Comment on above: For patients on eltr ombopag therapy, use of Dimension [place] TBIL is not recommended. Chloride [Moles/Vol] 104 mmol/L 98-107 [facility] Work Phone: Eosinophils/100 WBC (Bld) 1.9 % 0-5 [facility] Work Phone: [phone] Glucose [Mass/Vol] 280 mg/dL 74-106 [facility] Work Phone: [phone] Comment on above: Glucose result great er than or equal to 200 mg/dLsuggests DIABETES MELLITUS per A.D.A. criteria. Neutrophils (Bld) [#/Vol] 4.7 10*3/uL 2.0-7.7 [facility] Work Phone: Neutrophils/100 WBC (Bld) 47.9 % 47-70 [facility] Work Phone: Potassium [Moles/Vol] 3.9 mmol/L 3.5-5.1 [facility] Work Phone: Protein [Mass/Vol] 7.6 g/dL 6.4-8.2 [facility] Work Phone: [phone] Sodium [Moles/Vol] 134 mmol/L 136-145 [facility] Work Phone: [phone] WBC (Bld) [#/Vol] 9.7 10*3/uL 4.4-11.0 [facility] Work Phone: [phone] Blood erythrocytes count (nu mber/volume)on 07-08-2021 RBC (Bld) [#/Vol] 4.90 10*6/uL 4.2-5.4 [facility] Work Phone: [phone] Blood hemoglobin measurement (mass/volume)on 07-08-2021 Hemoglobin (Bld) [Mass/Vol] 13.2 g/dL 12.0-15.0 [facility] Work Phone: Blood lymphocytes/100 leukoc yteson 07-08-2021 Lymphocytes/100 WBC (Bld) 43.0 % 19-41 [facility] Work Phone: Blood manual differential co mment interpretation (narrative result)on 07-08-2021 Manual differential comment Jah (Bld) [Interp] SCANNED [facility] Work Phone: Blood monocytes/100 leukocyt eson 07-08-2021 Monocytes/100 WBC (Bld) 5.5 % 0-10 [facility] Work Phone: [phone] Blood platelet mean volumeon 07-08-2021 Platelet mean volume (Bld) [Entitic vol] 11.2 fL 6.2-12.0 [facility] Work Phone: [phone] Determination of erythrocyte mean corpuscular volume (MCV)on 07-08-2021 MCV (RBC) [Entitic vol] 83.5 fL 81-99 [facility] Work Phone: Hematocrit Auto (Bld) [Volum e fraction]on 07-08-2021 Hematocrit (Bld) [Volume fraction] 40.9 % 37-47 [facility] Work Phone: [phone] Laboratory - Chemistry and C hemistry - challengeon 07-08-2021 ALP [Catalytic activity/Vol] 64 U/L 45-117 [facility] Work Phone: [phone] ALT [Catalytic activity/Vol] 85 U/L 13-56 [facility] Work Phone: [phone] CO2 [Moles/Vol] 24.0 mmol/L 21.0-32.0 [facility] Work Phone: [phone] Globulin (S) [Mass/Vol] 4.2 g/dL 2.2-4.2 [facility] Work Phone: [phone] Urea nitrogen/Creatinine [Mass ratio] 11.3 mg/mg 10-20 [facility] Work Phone: [phone] Laboratory - Hematology and Cell countson 07-08-2021 Erythrocyte distribution width (RBC) [Entitic vol] 38.2 fL 35.1-43.9 [facility] Work Phone: [phone] Erythrocyte distribution width (RBC) [Ratio] 12.6 % 11.6-14.6 [facility] Work Phone: [phone] Immature granulocytes/100 WBC (Bld) 0.400 % 0.0-0.9 [facility] Work Phone: [phone] Comment on above: IG% - Immature Granu locytes (promyelocytes, myelocytes and metamyelocytes) > 1% indicates that a LEFT SHIFT is Present. MCH (RBC) [Entitic mass] 26.9 pg 27.0-32.0 [facility] Work Phone: Nucleated RBC/100 WBC (Bld) [Ratio] 0 % 0-5 [facility] Work Phone: MCHC Auto (RBC) [Mass/Vol]on 07-08-2021 MCHC (RBC) [Mass/Vol] 32.3 g/dL 32-36 [facility] Work Phone: No Panel Informationon 07-08 Estimated GFR (MDRD) Amer 70 mL/min >60 [facility] Work Phone: Comment on above: GFR Calc Estimated GFR (MDRD) Non-Af Amer 58 mL/min >60 [facility] Work Phone: Comment on above: Non- GFR Calc Platelets bldon 07-08-2021 Platelets (Bld) [#/Vol] 331 10*3/uL 150-450 [facility] Work Phone: Serum or plasma albumin brittanie urement (mass/volume)on 07-08-2021 Albumin [Mass/Vol] 3.4 g/dL 3.2-5.0 [facility] Work Phone: Serum or plasma albumin/glob ulin mass ratioon 07-08-2021 Albumin/Globulin [Mass ratio] 0.8 {ratio} 0.9-2.4 [facility] Work Phone: Serum or plasma calcium brittanie urement (mass/volume)on 07-08-2021 Calcium [Mass/Vol] 8.8 mg/dL 8.5-10.1 [facility] Work Phone: Serum or plasma creatinine m easurement (mass/volume)on 07-08-2021 Creatinine [Mass/Vol] 1.06 mg/dL 0.55-1.02 [facility] Work Phone: Comment on above: The validity of the calculated GFR & GFRAA in patients over 70 years has not been determined. Clinical correlation is essential. Serum or plasma urea nitroge n measurement (mass/volume)on 07-08-2021 Urea nitrogen [Mass/Vol] 12 mg/dL 7-18 [facility] Work Phone: Thin prep Papanicolaou smear with manual screeningon 07-08-2021 Thin prep Papanicolaou smear with manual screening 35 U/L 15-37 [facility] Work Phone: Thin prep Papanicolaou smear with manual screening 6 5-15 [facility] Work Phone: Basophil percentageon 2021 Bilirubin [Mass/Vol] 0.20 mg/dL 0.20-1.00 [facility] Work Phone: Comment on above: For patients on eltr ombopag therapy, use of Dimension [place] TBIL is not recommended. Cholesterol [Mass/Vol] 194 mg/dL <200 [facility] Work Phone: Comment on above: <200 mg/dL Desirable 200-240 mg/dL Borderline >240 mg/dL High Risk Protein [Mass/Vol] 7.7 g/dL 6.4-8.2 [facility] Work Phone: Triglyceride [Mass/Vol] 189 mg/dL <199 [facility] Work Phone: Comment on above: The drugs N-Acetylcy steine and Metamizole may falsely depress this assay.Serum Triglycerides Reference Interval Normal <150 mg/dL Borderline high 150 - 199 mg/dL High 200 - 499 mg/dL Very High > or = 500 mg/dL Direct bilirubinon Bilirubin.direct [Mass/Vol] 0.09 mg/dL 0.00-0.30 [facility] Work Phone: Laboratory - Chemistry and C hemistry - challengeon 06-30-2021 ALP [Catalytic activity/Vol] 67 U/L 45-117 [facility] Work Phone: ALT [Catalytic activity/Vol] 72 U/L 13-56 [facility] Work Phone: Globulin (S) [Mass/Vol] 4.1 g/dL 2.2-4.2 [facility] Work Phone: Serum or plasma albumin brittanie urement (mass/volume)on 06-30-2021 Albumin [Mass/Vol] 3.6 g/dL 3.2-5.0 [facility] Work Phone: Serum or plasma cholesterol in HDL measurement (mass/volume)on 06-30-2021 Cholesterol in HDL [Mass/Vol] 42 mg/dL >40 [facility] Work Phone: Comment on above: The drugs N-Acetylcy steine and Metamizole may falsely depress this assay. Reference Range HDL <40 mg/dL Low HDL Cholesterol HDL >or= 60 mg/dL High HDL Cholesterol Serum or plasma cholesterol in VLDL measurement (mass/volume)on 06-30-2021 Cholesterol in VLDL [Mass/Vol] 38 mg/dL 5-40 [facility] Work Phone: Serum or plasma low density lipoprotein (LDL) cholesterol measurement (mass/volume)on 06-30-2021 Cholesterol in LDL [Mass/Vol] 114 mg/dL 0-130 [facility] Work Phone: Thin prep Papanicolaou smear with manual screeningon 06-30-2021 Thin prep Papanicolaou smear with manual screening 45 U/L 15-37 [facility] Work Phone: Coronavirus 2019on 0 COVID 19 Result ECONOMETRICIAN Normal Negative for COVID19 (SARS CoV2) by PCR. [facility] Comment on above: Result Comment: Nega tive for This test was developed and its performance characteristics determined by [facility] [place]. This test has been authorized by FDA under an Emergency Use Authorization (EUA). This test has been validated in accordance with the FDA's Guidance Document Policy for Diagnostics Testing in Laboratories Certified to Perform High Complexity Testing under CLIA prior to Emergency use Authorization for Coronavirus Disease 2019 during the Public Health Emergency issued on June 01, 2019. COVID19 (SARS This test was developed and its performance characteristics determined by [facility] [place]. This test has been authorized by FDA under an Emergency Use Authorization (EUA). This test has been validated in accordance with the FDA's Guidance Document Policy for Diagnostics Testing in Laboratories Certified to Perform High Complexity Testing under CLIA prior to Emergency use Authorization for Coronavirus Disease 2019 during the Public Health Emergency issued on June 01, 2019. CoV2) by PCR. This test was developed and its performance characteristics determined by [facility] [place]. This test has been authorized by FDA under an Emergency Use Authorization (EUA). This test has been validated in accordance with the FDA's Guidance Document Policy for Diagnostics Testing in Laboratories Certified to Perform High Complexity Testing under CLIA prior to Emergency use Authorization for Coronavirus Disease 2019 during the Public Health Emergency issued on June 01, 2019. Performed By: #### C OVID #### [facility] Problem Resolution [address] [place], [place] [address] Coronavirus 2019on 0 COVID 19 Source ECONOMETRICIAN ECONOMETRICIAN Normal [facility] Comment on above: Performed By: #### C OVID #### [facility] Problem Resolution [address] [place], [place] [address] CR Foot Complete 3+ Views David baronnelly 06-14-2018 CR Foot Complete 3+ Views Right Patient Name: ANUPAM BOBBY Diagnostic Radiology Exam Date/Time 06/14/2018 16:37:48 EDT Exam CR Foot Complete 3+ Views Right Ordering Physician RICKI SALGUERO Accession Number [id number] CPT4 Codes 93953 () Reason For Exam injury 5th MTp joint tender Report RIGHT FOOT 3 VIEWS CLINICAL INDICATION: injury 5th MTP joint, tender TECHNIQUE: 3 views of the right foot. COMPARISON: None. FINDINGS: Transverse fracture in the 5th metatarsal neck. No significant displacement, angulation or apparent dislocation. Mild hallux valgus and degenerative change in the great toe MTP joint. Mild posterior and plantar calcaneal spurring. Mild, generalized soft tissue edema. IMPRESSION: 1. Fracture right 5th metatarsal neck. Report Dictated on Workstation: [email or web address] Final Dictating Physician: MD COSTELLO WENDELL Signed Date and Time: 06/14/2018 5:33 pm Signed by: MD COSTELLO WENDELL Transcribed Date and Time: 06/14/2018 5:34 Normal [facility] Vital Signs Date Time Vital Sign Value Performing Clinician Emrei florinda 07-26-2024 14:28-0400 Body height 165.[address] Nancy Arellano MD Work Phone: [phone] [place] [address] 07-26-2024 14:28-0400 Body mass index (BMI) [Ratio] 37.3 kg/m2 Dr. Nancy Arellano MD Work Phone: [phone] [place] [address] 07-26-2024 14:28-0400 Body weight 101.[address] Nancy Arellano MD Work Phone: 0(915)472-164756 [place] [address] 07-17-2023 08:06-0400 Body height 165.[address] Nancy Arellano Work Phone: [phone])867-406956 [place] [address] 07-17-2023 08:06-0400 Body mass index (BMI) [Ratio] 42 kg/m2 Dr. Nancy Arellano Work Phone: [phone])905-738056 [place] [address] 07-17-2023 08:06-0400 Body temperature 97.7 [degF] Dr. Nancy Arellano Work Phone: 1(713)790-831356 [place] [address] 07-17-2023 08:06-0400 Body weight 114.[address] Nancy Arellano Work Phone: 3(814)017-937756 [place] [address] 07-17-2023 08:06-0400 Diastolic blood pressure 80 mm[Hg] Dr. Nancy Arellano Work Phone: 2(625)293-306156 [place] [address] 07-17-2023 08:06-0400 Heart rate 86 /min Dr. Nancy Arellano Work Phone: [phone])499-184356 [place] [address] 07-17-2023 08:06-0400 Respiratory rate 17 /min Dr. Nancy Arellano Work Phone: [phone])072-605100 [place] [address] 07-17-2023 08:06-0400 SaO2% (BldA) [Mass fraction] 98 % Dr. Nancy Arellaon Work Phone: [facility] 07-17-2023 08:06-0400 Systolic blood pressure 116 mm[Hg] Dr. Nancy Arellano Work Phone: [facility] 04-19-2023 15:46-0500 Body height 165.[address] Nancy Arellano Work Phone: [phone])314-85[address] [place] [address] 04-19-2023 15:46-0500 Body mass index (BMI) [Ratio] 42.4 kg/m2 Dr. Nancy Arellano Work Phone: [phone])[phone] [address] 04-19-2023 15:46-0500 Body temperature 97.7 [degF] Dr. Nancy Arellano Work Phone: [phone])132-138637 [address] 04-19-2023 15:46-0500 Body weight 115.[address] Nancy Arellano Work Phone: 0(041)339-145100 [place] [address] 04-19-2023 15:46-0500 Diastolic blood pressure 100 mm[Hg] Dr. Nancy Arellano Work Phone: 3(053)345-681437 [address] 04-19-2023 15:46-0500 Heart rate 87 /min Dr. Nancy Arellano Work Phone: 9(354)880-547237 [address] 04-19-2023 15:46-0500 Respiratory rate 16 /min Dr. Nancy Arellano Work Phone: 0(812)096-893900 [place] [address] 04-19-2023 15:46-0500 SaO2% (BldA) [Mass fraction] 98 % Dr. Nancy Arellano Work Phone: [phone] [place] [address] 04-19-2023 15:46-0500 Systolic blood pressure 138 mm[Hg] Dr. Nancy Arellano Work Phone: [facility] 11-17-2022 08:30-0400 Body height 165.[address] Nancy Arellano Work Phone: [facility] 11-17-2022 08:30-0400 Body mass index (BMI) [Ratio] 44.8 kg/m2 Dr. Nancy Arellano Work Phone: [facility] 11-17-2022 08:30-0400 Body temperature 97.8 [degF] Dr. Nancy Arellano Work Phone: [facility] 11-17-2022 08:30-0400 Body weight 122.[address] Nancy Arellano Work Phone: [facility] 11-17-2022 08:30-0400 Diastolic blood pressure 80 mm[Hg] Dr. Nancy Arellano Work Phone: [facility] 11-17-2022 08:30-0400 Heart rate 98 /min Dr. Nancy Arellano Work Phone: [facility] 11-17-2022 08:30-0400 Respiratory rate 17 /min Dr. Nancy Arellano Work Phone: [facility] 11-17-2022 08:30-0400 SaO2% (BldA) [Mass fraction] 98 % Dr. Nancy Arellano Work Phone: [facility] 11-17-2022 08:30-0400 Systolic blood pressure 116 mm[Hg] Dr. Nancy Arellano Work Phone: [facility] 07-13-2022 08:49-0400 Body height 165.[address] Nancy Arellano Work Phone: [facility] 07-13-2022 08:49-0400 Body mass index (BMI) [Ratio] 46.5 kg/m2 Dr. Nancy Arellano Work Phone: [facility] 07-13-2022 08:49-0400 Body temperature 97.8 [degF] Dr. Nancy Arellano Work Phone: [facility] 07-13-2022 08:49-0400 Body weight 126.[address] Nancy Arellano Work Phone: [facility] 07-13-2022 08:49-0400 Diastolic blood pressure 90 mm[Hg] Dr. Nancy Arellano Work Phone: [facility] 07-13-2022 08:49-0400 Heart rate 101 /min Dr. Nancy Arellano Work Phone: [facility] 07-13-2022 08:49-0400 Respiratory rate 17 /min Dr. Nancy Arellano Work Phone: [facility] 07-13-2022 08:49-0400 SaO2% (BldA) [Mass fraction] 97 % Dr. Nancy Arellano Work Phone: [facility] 07-13-2022 08:49-0400 Systolic blood pressure 138 mm[Hg] Dr. Nancy Arellano Work Phone: [facility] 07-12-2022 17:36-0400 Body mass index (BMI) [Ratio] 46.5 kg/m2 Dr. Nancy Arellano Work Phone: [facility] 07-12-2022 17:36-0400 Body temperature 96.3 [degF] Dr. Nancy Arellano Work Phone: [facility] 07-12-2022 17:36-0400 Body weight [address] Nancy Arellano Work Phone: [facility] 07-12-2022 17:36-0400 Diastolic blood pressure 70 mm[Hg] Dr. Nancy Arellano Work Phone: [facility] 07-12-2022 17:36-0400 Heart rate 96 /min Dr. Nancy Arellano Work Phone: [facility] 07-12-2022 17:36-0400 Respiratory rate 16 /min Dr. Nancy Arellano Work Phone: [facility] 07-12-2022 17:36-0400 SaO2% (BldA) [Mass fraction] 98 % Dr. Nancy Arellano Work Phone: [facility] 07-12-2022 17:36-0400 Systolic blood pressure 164 mm[Hg] Dr. Nancy Arellano Work Phone: [facility] Encounters Encounter Date Encounter Type Care Provider Facility Start: 12-18-2024 ambulatory [facility] Facility:[facility] Start: 12-16-2024 Encounter for other preprocedural examination Richard Reid [facility] Start: 12-12-2024 End: 12-12-[address] Richard Reid MD -[facility] Work Phone: Start: 12-12-2024 End: 12-12-2024 ambulatory [facility] Work Phone: -[facility] Start: 12-05-[address] Reta Thao MD -[facility] Work Phone: Start: 12-05-2024 [facility] Start: 09-13-2024 End: 09-13-2024 Patient encounter procedure [facility] -[facility] Work Phone: Start: 09-13-2024 End: 09-13-[address] Nancy Arellano MD Work Phone: [facility] Work Phone: Start: 09-13-2024 End: 09-13-2024 ambulatory Aurea Pritchard Facility:[facility] Start: 09-10-2024 End: 09-10-[address] Nancy Arellano MD Work Phone: [facility] Work Phone: Start: 09-10-2024 End: 09-10-2024 Patient encounter procedure [facility] Work Phone: Start: 09-10-2024 End: 09-10-2024 [facility] Start: 08-08-2024 End: 08-08-[address] Nancy Arellano MD Work Phone: [facility] Work Phone: Start: 08-08-2024 End: 08-08-[address] Nancy Arellano MD Work Phone: [facility] [place] Work Phone: Start: 08-08-2024 End: 08-08-2024 ambulatory Reta Thao Facility:[facility] Start: 07-26-2024 End: 07-26-2024 Patient encounter procedure [facility] -[facility] Work Phone: Start: 07-26-2024 End: 07-26-2024 ambulatory Nancy Arellano Facility:[facility] Start: 07-22-[address] Nancy dallas MD -Physical Therapy Work Phone: Start: 07-22-2024 ambulatory Nancy Arellano Facility: [facility] Start: 07-12-2024 End: 07-12-[address] Nancy Arellano MD Work Phone: [facility] Work Phone: Start: 07-12-2024 End: 07-12-[address] Nancy Arellano MD -[facility]iology, [place] Work Phone: Start: 07-12-2024 End: 07-12-2024 ambulatory Nancy Arellano Facility:[facility] Start: 07-02-2024 End: 07-02-[address] Nancy Arellano MD Work Phone: [facility] Work Phone: Start: 07-02-2024 End: 07-02-[address] Aurea Pritchard MD -[facility] [place] Work Phone: Start: 07-02-2024 End: 07-02-2024 ambulatory Aurea Pritchard Facility:[facility] Start: 04-10-2024 End: 04-10-[address] Aurea Pritchard MD -[facility] [place] Work Phone: Start: 04-10-2024 End: 04-10-2024 ambulatory [facility] Facility:[facility] Start: 02-07-2024 End: 02-07-2024 ambulatory [facility] Facility:[facility] Start: 07-31-2023 End: 07-31-[address] Nancy Arellano Work Phone: [facility] Work Phone: Start: 07-31-2023 End: 07-31-[address] [facility] Work [facility] Start: 07-17-2023 End: 07-17-[address] Nancy Arellano Work Phone: [facility] Work Phone: Start: 06-26-2023 End: 06-26-[address] Nancy Arellano Work Phone: [facility] Work Phone: Start: 06-26-2023 End: 06-26-[address] Nancy Arellano Work Phone: [facility] Work Phone: Start: 04-19-2023 End: 04-19-[address] Nancy Arellano Work Phone: [facility] Work Phone: Start: 03-15-2023 End: 03-15-2023 ambulatory [facility] Work Phone: Start: 03-15-2023 End: 03-15-2023 Patient encounter procedure [facility] [place] Work Phone: Start: 12-20-2022 End: 12-20-[address] Nancy Arellano Work Phone: [facility] Work Phone: Start: 12-20-2022 End: 12-20-[address] Nancy Arellano Work Phone: [facility] Work Phone: Start: 11-17-2022 End: 11-17-[address] Nancy Arellano Work Phone: [facility] Work Phone: Start: 11-17-2022 End: 11-17-[address] Nancy Arellano Work Phone: [facility] Work Phone: Start: 09-23-2022 End: 09-23-[address] Nancy Arellano Work Phone: [facility] Work Phone: Start: 09-23-2022 End: 09-23-[address] Nancy Arellano Work Phone: [facility] Work Phone: Start: 07-19-2022 End: 07-19-[address] Nancy Arellano Work Phone: [facility] Work Phone: Start: 07-19-2022 End: 07-19-[address] Nancy rAellano Work Phone: [facility] Start: 07-13-2022 End: 07-13-[address] Nancy Arellano Work Phone: [facility] Start: 07-12-2022 End: 07-12-[address] Nancy Arellano Work Phone: [facility] Start: 06-27-2022 End: 06-27-2022 ambulatory [facility] Work Phone: Start: 06-27-2022 End: 06-27-2022 [facility] Start: 03-02-2022 End: 03-02-2022 ambulatory [facility] Work Phone: Start: 03-02-2022 End: 03-02-2022 [facility] Start: 11-05-2021 End: 11-05-2021 [facility] Start: 09-15-2021 End: 09-15-2021 Patient encounter procedure [facility] Start: 07-08-2021 End: 07-08-2021 Patient encounter procedure [facility] Start: 06-30-2021 End: 06-30-2021 [facility] Start: 06-14-2018 Emergency department patient visit [facility] Procedures Date Procedure Procedure Detail Performing Clinician Start: 09-13-2024 In-vitro immunologic test Dr. Nancy walsh MD Work Phone: Comment on above: QuantiFERON-TB Gold Plus is a qualitativ e indirect test forM tuberculosis infection (including disease) and isintended for use in conjunction with risk assessment,radiography, and other medical and diagnostic evaluations.The QuantiFERON-TB Gold Plus result is determined bysubtracting the Nil value from either TB antigen (Ag)value. The Mitogen tube serves as a control for the test. No response to M tub erculosis antigens detected.Infection with M tuberculosis is unlikely, but high riskindividuals should be considered for additional testing(ATS/IDSA/CDC Clinical Practice Guidelines, 2017). Thereference range is an Antigen minus Nil result of <0.35IU/mL.The specimen received for QuantiFERON testing was incubatedby the ordering institution. Specific procedures outlinedin our Directory of Services and in the package insert forthe QuantiFERON Gold (In Tube) test must be followed toenable for proper stimulation of cells for the productionof interferon gamma. Chemiluminescence immunoassaymethodologyPerformed at: [facility] [employer] [id number] Director: Mat Marcos PhD, Phone: [phone] Start: 09-10-2024 MRI of cervical spine Dr. Nancy Arellano MD Work Phone: Start: 07-26-2024 X-ray of cervical spine Dr. Nancy Arellano MD Work Phone: Start: 07-12-2024 X-ray of cervical spine Dr. 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 [Presence] in Blood [facility] helena Path report.final Dx Spec [facility] Patient referral [facility] Work Phone: Payers Date Payer Category Payer Self-pay [id number] 2024 Self-pay [id number] 2006 Unknown [id number] 2006 Unknown [id number] 1970 Unknown [id number] 2.16.8 [id number] Unknown Unknown [id number] Unknown R [place] [id number] Unknown [id number] 2.16.8 40.1.803033.3.579.2.462 Unknown [id number] 2.16.8 40.1.663493.3.579.2.462 Unknown [id number] 2.16.8 40.1.195039.3.579.2.462 Unknown [id number] 2.16.8 40.1.247875.3.579.2.462 Unknown [id number] 2.16.8 40.1.178408.3.579.2.462 Unknown [id number] 2.16.8 40.1.349785.3.579.2.462 Unknown [id number] 2.16.8 40.1.829381.3.579.2.462 Unknown [id number] 2.16.8 40.1.342479.3.579.2.462 Unknown [id number] 2.16.8 40.1.300826.3.579.2.462 Unknown [id number] 2.16.8 40.1.984588.3.579.2.462 Unknown [id number] 2.16.8 40.1.694660.3.579.2.462 Unknown [id number] 2.16.8 40.1.907051.3.579.2.462 Unknown [id number] 2.16.8 40.1.840158.3.579.2.462 Unknown [id number] 2.16.8 40.1.530281.3.579.2.462 Social History Date Type Detail [facility] Work Phone: Start: 1970 Sex Assigned At Female [facility] Start: 07-13-2022 End: 07-17-2023 Tobacco smoking status NHIS Unknown if ever smoked [facility] Start: 07-17-2023 End: 12-04-2024 Tobacco smoking status NHIS Ex-smoker (finding) [facility] Start: 07-06-2024 End: 07-18-2024 Sex Female (finding) [facility] Evaluation note 09-13-2024 Note Date & Type Note Facility 09-13-2024 Evaluation note Diagnosis Onset Date Resolution Cervical myelopathy with cervical radiculopathy acute September 7:59am Degenerative disc disease, cervical acute September 13 7:59am Cervical myelopathy with cervical radiculopathy acute December 12, 2024 7:56am Degenerative disc disease, cervical acute December 7:56am [facility] Work Phone: Evaluation note 07-26-2024 Note Date & Type Note Facility 07-26-2024 Evaluation note Diagnosis Onset Date Resolution Degenerative disc disease, cervical acute July 26 2:26pm Cervical myelopathy with cervical radiculopathy noneactive July, 2024 2:26pm [facility] Work Phone: Evaluation note 07-26-2024 Note Date & Type Note Facility 07-26-2024 Evaluation note Diagnosis Onset Date Resolution Degenerative disc disease, cervical acute July 26 2:26pm Cervical myelopathy with cervical radiculopathy noneactive July 2:26pm Cervical myelopathy with cervical radiculopathy acute September 7:59am Degenerative disc disease, cervical acute September 13 7:59am [facility] Work Phone: Radiology Diagnostic study note 07-13-2024 Note Date & Type Note Facility 07-13-2024 Radiology Diagnostic study note [facility] Imaging Services [address] [place] [address] Cerv Spine 4 or 5 Views MR#: [id number] Acct: [id number] Name: ANUPAM BOBBY Rep #: [id number] 06 : 1970 F 54 From: Tyler Rocha DO PCP: Dr. Nancy Arellano MD Status: REG CLI Study:Cerv Spine 4 or 5 Views Date of Exam: 07/12/24 Exam# [id number] Ordering Dr: Nancy Arellano MD PROCEDURE: CERV SPINE 4 OR 5 VIEWS 07/12/2024 REASON FOR EXAM: PAIN AND NEUROPATHY TECHNIQUE: Five views of the cervical spine COMPARISON: None FINDINGS: See impression RAD/Cerv Spine 4 or 5 Views IMPRESSION: Minimal cervical kyphosis. Vertebral body heights are preserved. Mild/moderatedisc space narrowing from C4 through C6 with associated uncovertebral arthrosis, greater on the right. Moderate bony right foraminal narrowing at C4-5 and C5-6. Mild multilevel facet arthropathy. Reading Location: [facility] CC: Dr. Nancy Arellano MD ~ Product Safety And Standards Engineer: Signed [facility] Evaluation note Note Date & Type Note Facility Evaluation note No assessment information availa ble [facility] Work Phone: Evaluation note Note Date & Type Note Facility Evaluation note Diagnosis Onset Date Acute bronchitis acute Post-COVID chronic fatigue a cute Polyneuropathy chronic [facility] Work Phone: Evaluation note Note Date & Type Note Facility Evaluation note Diagnosis Onset Date Polyneuropathy chronic [facility] Work Phone: Evaluation note Note Date & Type Note Facility Evaluation note Diagnosis Onset Date Psoriasis acute [facility] Work Phone: Evaluation note Note Date & Type Note Facility Evaluation note Diagnosis Onset Date Psoriasis acute Polyneuropathy chronic [facility] Work Phone: Reason for referral (narrative) Note Date & Type Note Facility Reason for referral (narrative) No reason for referral information available [facility] Work Phone: Summary Purpose Family History No Family History Records Found Relationship Condition Age at Onset Recorded Date/T malathi mother Cardiac disease Unknown Hypertension Unknown Disorder of thyroid Unknown father Cardiac disease Unknown sister Hypertension Unknown Advance Directives No Advanced Directives Records FoundNo Advanced Directives Records FoundNo Advanced Directives Records Found Chief Complaint and Reason for Visit Chief Complaint STANDING ORDER Chief Complaint STANDING ORDER G62.9 Polyneuropathy, unspecified BILAT LOWER EXT Chief Complaint G62.9 Polyneuropathy , unspecified BILAT LOWER EXT S/O- PAIN- COPY PCP Chief Complaint STANDING ORDER CONGESTION/COUGH/EYE CONCERNS NUMBNESS IN FEET EORDER Reason for Visit Acute bronchitis Post-COVID chronic fatigue Polyneuropathy Chief Complaint STANDING ORDER CONGESTION/COUGH/EYE CONCERNS NUMBNESS IN FEET EORDER S/O- PAIN COPY PCP Reason for Visit Acute bronchitis Post-COVID chronic fatigue Polyneuropathy Chief Complaint S/O- PAIN COPY PCP 4 M FU E ORDER Reason for Visit Polyneuropathy Chief Complaint S/O- PAIN COPY PCP 4 M FU E ORDER S/O- PAIN COPY PCP Reason for Visit Polyneuropathy Chief Complaint S/O- PAIN COPY PCP STANDING ORDER Chief Complaint STANDING ORDER Rash Reason for Visit Psoriasis Chief Complaint Rash 8 mo fu Reason for Visit Psoriasis Polyneuropathy Chief Complaint Admit Date S/O-PAIN- COPY PCP April 10, 2024 3: 49pm Chief Complaint Admit Date S/O-PAIN- COPY PCP April 10, 2024 3: 49pm pain and neuropathy July 12, 2024 4:0 8pm Chief Complaint Admit Date pain and neuropathy July 12, 2024 4:0 8pm NECK PAIN. RX WITH PATIENT. July 22, 2024 3:53pm CERVICAL SPINE July 26, 2024 2:2 6pm Room 5 July 26, 2024 2:4 3pm Reason for Visit Admit Date Degenerative disc disease, cervical Apri l 2024 2:26pm Cervical myelopathy with cervical radicu lopathy July 26, 2024 2:26pm Chief Complaint Admit Date pain and neuropathy July 12, 2024 4:0 8pm NECK PAIN. RX WITH PATIENT. July 22, 2024 3:53pm CERVICAL SPINE July 26, 2024 2:2 6pm Room 5 July 26, 2024 2:4 3pm PAIN, HYPERREFLEXIA September 10, 2024 12:3 4pm CERVICAL SPINE September 13, 2024 7:59 am Chief Complaint Admit Date pain and neuropathy July 12, 2024 4:0 8pm NECK PAIN. RX WITH PATIENT. July 22, 2024 3:53pm CERVICAL SPINE July 26, 2024 2:2 6pm Room 5 July 26, 2024 2:4 3pm PAIN, HYPERREFLEXIA September 10, 2024 12:3 4pm CERVICAL SPINE September 13, 2024 7:59 am 2 DRS/ 2ORDERS September 13, 2024 8:59 am Reason for Visit Admit Date Degenerative disc disease, cervical Apri l 2024 2:26pm Cervical myelopathy with cervical radicu lopathy July 26, 2024 2:26pm Cervical myelopathy with cervical radicu lopathy September 13, 2024 7:59am Degenerative disc disease, cervical September 13, 2024 7:59am Chief Complaint Admit Date PAIN, HYPERREFLEXIA September 10, 2024 12:3 4pm CERVICAL SPINE September 13, 2024 7:59 am 2 DRS/ 2ORDERS September 13, 2024 8:59 am 2 ORDERING DERRICK PRITCHARD/KEESHA December 052024 9:02am cervical spine December 12, 2024 7:56am Reason for Visit Admit Date Cervical myelopathy with cervical radicu lopathy September 13, 2024 7:59am Degenerative disc disease, cervical September 13, 2024 7:59am Cervical myelopathy with cervical radicu lopathy December 12, 2024 7:56am Degenerative disc disease, cervical Sept ember 2024 7:56am Additional Source Comments INFORMATION SOURCE (unrecogn ized section and content) DATE CREATED AUTHOR 06/21/2018 [facility] DATE CREATED AUTHOR AUTHOR'S ORGANIZ ATION 04/25/2020 [facility] DATE CREATED AUTHOR AUTHOR'S ORGANIZ ATION 12/17/2024 [facility] Goals (unrecognized section and content) Goals may be documented in a n alternate sectionGoals may be documented in an alternate sectionGoals may be documented in an alternate sectionGoals may be documented in an alternate sectionGoals may be documented in an alternate sectionGoals may be documented in an alternate sectionGoals may be documented in an alternate sectionGoals may be documented in an alternate sectionGoals may be documented in an alternate sectionGoals may be documented in an alternate sectionGoals may be documented in an alternate sectionGoals may be documented in an alternate sectionGoals may be documented in an alternate sectionGoals may be documented in an alternate sectionGoals may be documented in an alternate sectionGoals may be documented in an alternate sectionGoals may be documented in an alternate sectionGoals may be documented in an alternate sectionGoals may be documented in an alternate sectionGoals may be documented in an alternate section Care Teams (unrecognized sec tion and content) Team Status: Active Member Role Status Dates Reta Thao MD Primary Care Provider Active Team Status: Inactive Member Role Status Dates Dr. Nancy Arellano MD Primary Care Provider Active Start: July 02, 2024 End: July 02, 2024 Dr. Aurea Pritchard MD Attending Provider Active Start: July 02, 2024 End: July 02, 2024 Dr. Aurea Pritchard MD Referring Provider Active Start: July 02, 2024 End: July 02, 2024 Team Status: Inactive Member Role Status Dates Dr. Nancy Arellano MD Primary Care Provider Active Start: July 12, 2024 End: July 12, 2024 Dr. Nancy Arellano MD Attending Provider Active Start: July 12, 2024 End: July 12, 2024 Dr. Nancy Arellano MD Referring Provider Active Start: July 12, 2024 End: July 12, 2024 Team Status: Active Member Role Status Dates Dr. Nancy Arellano MD Primary Care Provider Active Start: July 22, 2024 Dr. Nancy Arellano MD Attending Provider Active Start: July 22, 2024 Dr. Nancy Arellano MD Referring Provider Active Start: July 22, 2024 Team Status: Inactive Member Role Status Dates Dr. Nancy Arellano MD Primary Care Provider Active Start: July 26, 2024 End: July 26, 2024 Dr. Nancy Arellano MD Referring Provider Active Start: July 26, 2024 End: July 26, 2024 HARSH Hartman Attending Provider Active Star t: July 26, 2024 End: July 26, 2024 Team Status: Inactive Member Role Status Dates Dr. Nancy Arellano MD Primary Care Provider Active Start: July 26, 2024 End: July 26, 2024 Dr. Yonis Gonzalez MD Attending Provider Active S tart: July 26, 2024 End: July 26, 2024 Team Status: Inactive Member Role Status Dates RASHMI ANN Attending Provider Active Sta rt: August 08, 2024 End: August 08, 2024 RASHMI ANN Referring Provider Active Sta rt: August 08, 2024 End: August 08, 2024 Reta Thao MD Primary Care Provider Active St art: August 08, 2024 End: August 08, 2024 Team Status: Active Member Role Status Dates Dr. Nancy Arellano MD Family Provider Active Dr. Nancy Arellano MD Primary Care Provider Active Team Status: Inactive Member Role Status Dates Dr. Nancy Arellano MD Primary Care Provider Active Dr. Aurea Pritchard MD Attending Provider Active Team Status: Inactive Member Role Status Dates Dr. Nancy Arellano MD Primary Care Provider, [facility] Provider Active Dr. Nahum Villegas MD Attending Provider Active Team Status: Inactive Member Role Status Dates Dr. Nancy Arellano MD Primary Care Provider, Referrin g Provider Active Kang [employer], [place] Attending Provider Active Team Status: Inactive Member Role Status Dates Dr. Nancy Arellano MD Primary Care Provider Active Dr. Nahum Villegas MD Attending Provider, Referring Provider Active Team Status: Inactive Member Role Status Dates Dr. Nancy Arellano MD Primary Care Provider Active Dr. Aurea Pritchard MD Attending Provider, Referring Provider Active Team Status: Inactive Member Role Status Dates Dr. Nanyc Arellano MD Primary Care Provider Active Dr. Nahum Villegas MD Attending Provider Active Team Status: Inactive Member Role Status Dates Dr. Nancy Arellano MD Primary Care Provider, Referrin g Provider Active Robert [employer], [place] Attending Provider Active Team Status: Inactive Member Role Status Dates Dr. Nancy Arellano MD Primary Care Provider Active SETH FURFARI Attending Provider, Referring Provi brenton Active Team Status: Inactive Member Role Status Dates Dr. Nancy Arellano MD Primary Care Provider, Attendin g Provider Active Team Status: Inactive Member Role Status Dates Dr. Nancy Arellano MD Primary Care Provider Active Start: April 10, 2024 End: April 10, 2024 Dr. Aurea Pritchard MD Attending Provider Active Start: April 10, 2024 End: April 10, 2024 Dr. Aurea Pritchard MD Referring Provider Active Start: April 10, 2024 End: April 10, 2024 Team Status: Active Member Role Status Dates Dr. Nancy Arellano MD Primary Care Provider Active Team Status: Active Member Role Status Dates HARSH Hartman Attending Provider Active Star t: September 10, 2024 HARSH Hartman Referring Provider Active Star t: September 10, 2024 Reta Thao MD Primary Care Provider Active St art: September 10, 2024 Team Status: Inactive Member Role Status Dates Reta Thao MD Primary Care Provider Active St art: September 13, 2024 End: September 13, 2024 Reta Thao MD Referring Provider Active Start : September 13, 2024 End: September 13, 2024 HARSH Hartman Attending Provider Active Star t: September 13, 2024 End: September 13, 2024 Team Status: Inactive Member Role Status Dates HARSH Hartman Attending Provider Active Star t: September 10, 2024 End: September 10, 2024 HARSH Hartman Referring Provider Active Star t: September 10, 2024 End: September 10, 2024 Reta Thao MD Primary Care Provider Active St art: September 10, 2024 End: September 10, 2024 Team Status: Active Member Role Status Dates Reta Thao MD Primary Care Provider Active St art: September 13, 2024 ORVILLE BO Other Provider Active Start: J une 2024 Dr. Aurea Pritchard MD Attending Provider Active Start: September 13, 2024 Dr. Aurea Pritchard MD Referring Provider Active Start: September 13, 2024 Team Status: Inactive Member Role Status Dates Reta Thao MD Primary Care Provider Active St art: September 13, 2024 End: September 13, 2024 ORV[place]LE BO Other Provider Active Start: J toshia 2024 End: September 13, 2024 Dr. Aurea Pritchard MD Attending Provider Active Start: September 13, 2024 End: September 13, 2024 Dr. Aurea Pritchard MD Referring Provider Active Start: September 13, 2024 End: September 13, 2024 Team Status: Active Member Role/Relationship Status Antwon Thao MD Primary Care Provider Active Team Status: Inactive Member Role/Relationship Status Dates HARSH Hartman Attending Provider Active Star t: September 10, 2024 End: September 10, 2024 HARSH Hartman Referring Provider Active Star t: September 10, 2024 End: September 10, 2024 Reta Thao MD Primary Care Provider Active St art: September 10, 2024 End: September 10, 2024 Team Status: Inactive Member Role/Relationship Status Dates Reta Thao MD Primary Care Provider Active St art: September 13, 2024 End: September 13, 2024 Reta Thao MD Referring Provider Active Start : September 13, 2024 End: September 13, 2024 HARSH Hartman Attending Provider Active Star t: September 13, 2024 End: September 13, 2024 Team Status: Inactive Member Role/Relationship Status Dates Reta Thao MD Primary Care Provider Active St art: September 13, 2024 End: September 13, 2024 [place] BO Other Provider Active Start: J 2024 End: September 13, 2024 Dr. Aurea Pritchard MD Attending Provider Active Start: September 13, 2024 End: September 13, 2024 Dr. Aurea Pritchard MD Referring Provider Active Start: September 13, 2024 End: September 13, 2024 Team Status: Active Member Role/Relationship Status Antwon Thao MD Primary Care Provider Active St art: December 05, 2024 Reta Thao MD Attending Provider Active Start : December 05, 2024 Dr. Aurea Pritchard MD Referring Provider Active Start: December 05, 2024 Team Status: Inactive Member Role/Relationship Status Antwon Thao MD Primary Care Provider Active St art: December 12, 2024 End: December 12, 2024 Reta Thao MD Referring Provider Active Start : December 12, 2024 End: December 12, 2024 Dr. Richard Reid MD Attending Provider Active Start: December 12, 2024 End: December 12, 2024 FOR RECORDS PERTAINING TO PATIENTS WHO ARE OR HAVE BEEN ENROLLED IN A CHEMICAL DEPENDENCY/SUBSTANCEABUSE PROGRAM, SOME INFORMATION MAY BE OMITTED. This clinical summary was aggregated from multiple sources. Caution should be exercised in using it in the provision of clinical care. This summary normalizes information from multiple sources, and as a consequence, information in this document may materially change the coding, format and clinical context of patient data. In addition, data may be omitted in some cases. CLINICAL DECISIONS SHOULD BE BASED ON THE PRIMARY CLINICAL RECORDS. [facility] [employer] provides no warranty or guarantee of the accuracy or completeness of information in this document.
[2024-12-18] MEDS: Magnesium 1 GM over 15 mins IV (06:26)
[2024-12-18] MEDS: Lactated Ringers 1,000 ML 15 ML IV (06:26)
--- NOTE | 2024-12-18 06:46 | PRE.ANES_ITS ---
ASA Classification* ASA Classification ASA Classification: 3 Assessment & Plan Anesthesia* Anesthesia Assessment Anesthesia Assessment: Discussed sedation and/or anesthesia options, risks, benefits, and alternatives with patient/parents/legal guardian/POA. Questions invited. The patient/parents/legal guardian/POA seems to understand and agrees to proceed with anesthesia plan. Reviewed the physical assessment, medical history, allergy history and patient home medications list prior to surgery/procedure/anesthetic and documented any changes. Performed airway and anesthesia risk assessments. Anesthesia Type Anesthesia Type: General History Source History Obtained from:: Patient and Chart Anesthesia Focused Assessment* Temperature: 97.1 F Pulse Rate: 88 Blood Pressure: 126/97 Respiratory Rate: 18 Pulse Ox: 99 Oxygen Delivery Method: Room Air Airway Assessment Mouth opens: >3 cm Mallampati Score: II Teeth Condition: Chipped/Broken and Missing (Only in few teeth present on the lower jaw) Neck Range of motion (ROM): Limited ROM Labs Anesthesia Preop lab: CBC WBC, (4.4-11.0) 7.6 K/mm3 12/05/24, : RBC, (4.2-5.4) 4.93 M/mm3 12/05/24, : Hgb, (12.0-15.0) 13.5 g/dL 12/05/24, : Hct, (37-47) 41.3 % 12/05/24, : Plt Count, (150-450) 326 K/mm3 12/05/24, 09: CHEMISTRY Potassium, (3.3-5.1) 4.2 mmol/L 12/05/24, : Sodium, (133-145) 139 mmol/L 12/05/24, : Magnesium, (1.5-2.2) 2.6 mg/dL H 12/05/24, : BUN, (4-19) 16 mg/dL 12/05/24, : Creatinine, (0.70-1.20) 0.99 mg/dL 12/05/24, : Glucose, (70-99) 94 mg/dL 12/05/24, : POC Glucose, (74-106) 97 mg/dL Today, 06:04 TSH, (0.358-3.74) 1.98 uIU/mL 07/19/22, 08:01 COAG Urine Test Negative Negative 10/09/12, 08:15 Pre-Assessment Diagnosis/Proposed Procedure Planned Operative Procedure(s): Anterior Cervical Fusion C4-5 and C5-6 Anesthesia History 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 When Was Last Pacemaker Check QUESTION #4 FULL TEXT: You/Your Family Experience fever (hyperthermia) with Anesthesia Last Oral Intake Last Oral intake: Last Oral Intake NPO since 02:30 12/18/24 06:07 Meds taken in AM with sips of Yes 12/18/24 06:07 water? 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 Female Yes 12/04/24 12:14 HX of Motion Sickness No 12/04/24 12:14 HX of N/V After Surgery No 12/04/24 12:14 Non-Smoker Yes 12/04/24 12:14 Duration of Surgery greater Yes 12/04/24 12:14 than 60 minutes Number of Risk Factors 3 12/04/24 12:14 PONV Score Moderate Risk 12/04/24 12:14 Height & Weight Height & Weight: Anesthesia: Height & Weight Height 5 ft 5 in 12/18/24 06:07 Weight: 94 kg 12/18/24 06:07 Body Mass Index (BMI) 34.4 12/18/24 06:07 Respiratory Assessment Respiratory Assessment - hoop punch operator helper: Respiratory Tract Infection Hx - hoop punch operator helper Hx Respiratory Tract Infection No 12/04/24 12:14 STOP Sleep Apnea STOP Sleep Apnea - hoop punch operator helper: STOP Sleep Apnea - hoop punch operator helper Hx Hypertension Yes: CONTROLLED ON MED 12/04/24 12:14 Hx Sleep Apnea No 12/04/24 12:14 CPAP BIPAP Do you snore loudly (louder Yes 12/04/24 12:14 than talking or can be heard Do you often feel tired/ No 12/04/24 12:14 fatigued/ sleepy during daytime? Has anyone observed you stop No 12/04/24 12:14 breathing during sleep? STOP Results Positive 12/04/24 12:14 QUESTION #5 FULL TEXT : Do you snore loudly (louder than talking or can be heard through closed doors)? 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 Specify any problems Hx of Preganancy in last 3 No 12/04/24 12:14 Months Nurse Filling Out Transfusion VCHRISTIN 12/04/24 12:14 & Questions: Date: 12/04/24 12/04/24 12:14 Time: 12:16 12/04/24 12:14 Patient unable to answer at this time (ie. confused, unrespo /Reproduction History /Reproductive History - hoop punch operator helper: /Reproductive Hx- hoop punch operator helper Hx Now No 12/04/24 12:14 Gestational Age (in weeks): EDC: Hx Hx Para Hx Section SAB No 12/04/24 12:14 Active Medications Active Medications: Current Medications Generic Name Dose Route Start Last Admin Trade Name Freq PRN Reason Stop Dose Admin Acetaminophen 1,000 mg 12/18/24 07:30 12/18/24 06:26 Acetaminophen 500 Mg Tablet PO 12/18/24 07:31 1,000 mg PREOP ONE Administration Dexamethasone Sodium Phosphate 8 mg 12/18/24 07:30 Dexamethasone 10 Mg/Ml Vial IV 12/18/24 07:31 INTRAOP ONE Dexamethasone Sodium Phosphate 4 mg 12/18/24 12:00 Dexamethasone 4 Mg/Ml Vial IV 12/18/24 12:01 POSTOP ONE Clindamycin Phosphate 900 mg in 50 mls @ 75 mls/hr 12/18/24 07:30 Cleocin IV 12/18/24 08:09 INTRAOP ONE Tranexamic Acid 1,000 mg/ 110 mls @ 440 mls/hr 12/18/24 07:30 Sodium Chloride IV 12/18/24 07:44 INTRAOP ONE Tranexamic Acid 1,000 mg/ 110 mls @ 440 mls/hr 12/18/24 07:30 Sodium Chloride IV 12/18/24 07:44 INTRAOP ONE Magnesium Sulfate 1 gm/ 102 mls @ 408 mls/hr 12/18/24 07:30 12/18/24 06:26 Dextrose IV 12/18/24 07:44 408 mls/hr PREOP ONE Administration Lactated Ringer's 1,000 mls @ 15 mls/hr 12/18/24 06:30 12/18/24 06:26 IV 15 mls/hr .Q48H MOOKIE Administration Insulin Human Lispro 1 - 6 unit 12/18/24 07:30 Insulin Lispro 100 Unit/Ml Insuln.Pen SC 12/18/24 13:30 Q4H PRN PRN BG>/= 180, SEE PROTOCOL Protocol PFSH Medical History Post-menopausal Wears partial dentures Wears dentures Wears glasses Wears contact lenses History of steroid therapy Psoriatic arthritis Back pain Gastric reflux Former smoker Shortness of breath on exertion Hx of ovarian cyst Psoriasis Hypertension Diabetes mellitus Polyneuropathy Home Medications ?Medication ?Instructions ?Recorded ?Last Taken ?Type atenolol 50 mg tablet 50 mg PO DAILY 07/12/2212/02 History meloxicam 15 mg tablet 15 mg PO DAILY PRN pain 07/0212/08/24 History metformin 500 mg tablet,extended 1,000 mg PO DAILY 02/2312/17/24 History release 24 hr tramadol 50 mg tablet 50 mg PO TID PRN pain 12/17/24 History ixekizumab 80 mg/mL subcutaneous 80 mg subcut QMONTH 0 09/13/24 10/20/24 History auto-injector (Taltz Autoinjector) lisinopril 20 mg tablet 20 mg PO QDAY 09/13/2412/17 History bupropion HCl 300 mg 24 hr tablet, 300 mg PO DAILY 06/2512/17/24 History extended release duloxetine 60 mg capsule,delayed 60 mg PO BID 12/04/24 12/17/24 History release folic acid 1 mg tablet 2 mg PO DAILY 12/04/2412/17 History methotrexate sodium 2.5 mg tablet 12.5 mg PO QWEEK 06/2512/13/24 History omeprazole 40 mg capsule,delayed 40 mg PO DAILY 12/18/24 History release semaglutide 1 mg/dose (4 mg/3 mL) 1 mg subcut QWEEK 12/06/24 History subcutaneous pen injector (Ozempic) cholecalciferol (vitamin D3) 625 625 mcg PO QWEEK 12/0212/13/24 History mcg (25,000 unit) capsule Allergy/AdvReac Type Severity Reaction Status Date / Time amoxicillin Allergy Severe Rash Verified 12/18/24 06:05 Family History Mother Heart disease Hypertension Thyroid disorder Father Heart disease Hypertension Sister Hypertension Thyroid disorder Surgical History History of back surgery Social History Smoking Status: Former smoker Tobacco: How many years used: 20 second hand exposure: No details: occasionally substance use type: does not use what type of physical activity do you participate in: none casey/tenriism: Catholic seatbelt use: always Review of Systems (Anesthesia) ROS Narrative System reviewed and no additional complaints, except as documented.
--- NOTE | 2024-12-18 07:17 | HP.PCM_ITS ---
History and Physical Date of Admission: 12/18/24 MR#: [id number] Acct: [id number] Name: ANUPAM BOBBY Rep #: [id number] : 1970 Provider: Dr. Richard Reid MD Age/Sex: 54/F Location: [facility] [place] Status: Signed Intake Vital Signs 07/26/2513:28 Height 5 ft 5 in Intake Visit Reasons: cervical spine Chief Complaint: pre op Allergies amoxicillin Adverse Reaction (Severe, Verified 12/12/24 08:12) Rash Medications ?Medication ?Instructions ?Recorded ?Confirmed ?Type atenolol 50 mg tablet 50 mg PO DAILY 07/12/22 12/12/24 History meloxicam 15 mg tablet 15 mg PO DAILY PRN pain 07/12/22 5 History metformin 500 mg tablet,extended 1,000 mg PO DAILY 07/12/22 12/12/24 Hist ory release 24 hr tramadol 50 mg tablet 50 mg PO TID PRN pain 07/12/22 12/12/24 History ixekizumab 80 mg/mL subcutaneous 80 mg subcut QMONTH 09/13/24 12/12/24 Hi story auto-injector (Taltz Autoinjector) lisinopril 20 mg tablet 20 mg PO QDAY 09/13/24 12/12/24 History bupropion HCl 300 mg 24 hr tablet, 300 mg PO DAILY 12/04/24 12/12/24 Histor y extended release duloxetine 60 mg capsule,delayed 60 mg PO BID 12/04/24 12/12/24 History release folic acid 1 mg tablet 2 mg PO DAILY 12/04/24 12/12/24 History methotrexate sodium 2.5 mg tablet 12.5 mg PO QWEEK 12/04/24 12/12/24 Histo ry omeprazole 40 mg capsule,delayed 40 mg PO DAILY 12/04/24 12/12/24 History release semaglutide 1 mg/dose (4 mg/3 mL) 1 mg subcut QWEEK 12/04/24 12/12/24 Hist ory subcutaneous pen injector (Ozempic) cholecalciferol (vitamin D3) 625 625 mcg PO QWEEK 12/12/24 12/12/24 Histo ry mcg (25,000 unit) capsule [facility] Medical History Post-menopausal Wears partial dentures Wears dentures Wears glasses Wears contact lenses History of steroid therapy Psoriatic arthritis Back pain Gastric reflux Former smoker Shortness of breath on exertion Hx of ovarian cyst Psoriasis Hypertension Diabetes mellitus Polyneuropathy Surgical History History of back surgery Family History Mother Heart disease Hypertension Thyroid disorder Father Heart disease Hypertension Sister Hypertension Thyroid disorder Social History Smoking Status: Former smoker Tobacco: How many years used: 20 second hand exposure: No details: occasionally substance use type: does not use what type of physical activity do you participate in: none casey/bahai: Christianity seatbelt use: always HPI cervical spine Details: This documentation accurately reflects the service provided and the decisions ma de by me, Dr. Richard Reid MD 12/12/24804. Part of today?s visit was documented by Meghann Braxton RN, acting as scribe. ANUPAM BOBBY is a 54 year old F here today for pre op visit for C4-C5 C5-C6 fusion. The patient is a 54-year-old female presenting with cervical spondylosis with radiculopathy. She reports significant pain on the right side, extending from the neck to the elbow, with occasional numbness in the fingers. The symptoms have been progressively worsening, affecting her dexterity and coordination, particularly on the right side. The patient has a history of diabetes mellitus, type 2, which is currently well- controlled with metformin, and her last A1c was 5.3%. She also has hypertension, which is managed with medication, and rheumatoid arthritis for which she takes methotrexate. She has been advised to stop methotrexate temporarily due to the upcoming surgery. - Neurological: Reports pain radiating from the neck to the right elbow, numbness in fingers, and difficulty with dexterity and coordination. - Musculoskeletal: Denies falls or balance issues. - Endocrine: Reports diabetes mellitus, type 2, well-controlled with medication. - Cardiovascular: Reports hypertension, managed with medication. Attestation: Documentation on this patient encounter was supported using ambient scribe technology/ voice AI technology. The patient consented to recording for the purpose of documenting the encounter. Provider reviewed content of the generated note prior to signature. 09/13/24ANUPAM BOBBY is a 54 year old F here today for MRI review of the cervical spine. Patient states her neck pain has worsened since her last visit. She denies any recent injections or treatment. Patient is prescribed meloxicam and tramadol PRN for the pain and she will occasionally take Excedrin as well. Last a1c was 5.3, no blood thinners, no heart or lung issues. She continues to have a right sided arm pain that extends down from the right side of her neck to her right elbow. 07/26/2024: ANUPAM BOBBY is a 54 year old F here today for cervical spine pain. Patient is having pain in the back of her neck. The pain goes down the right biceps area. She does get numbness in tingling in the right upper arm. This has been going on for at least a year worsening over the last several months with radiculopathy symptoms starting over the last couple of weeks. Patient woke up one day and it just started hurting she denies any trauma or injuries. Her pain extends down the right side of her neck to her right shoulder and to her right bicep and is described as a tingling burning pain. Denies any pain that extends below the elbow. Denies any left sided involvement. Patient sees Dr. Lacy for psoriatic arthritis and takes methotrexate and Taltz which is a monoclonal antibody injection. Patient goes to her every 3 months. Patient has had a laminectomy at L5-S1 followed by 2 other surgeries to stop a spinal cord fluid leak, those were in 2008. Dr. Padilla did 2 of the back surgeries, and Dr Spence did the 3rd back surgery. When she leans over her neck starts to hurt really bad. 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 The pain comes and goes. Patient has been doing physical therapy at home for exercise. Her heating pad helps a little bit. Denies any balance or dexterity issues. Hx of diabetes last a1c was 5.3, no heart or lung issues, no blood thinners. Takes Mobic which is helpful. Ortho Exam General General: Yes no acute distress Neurologic: Yes alert and Yes oriented x3 Psychologic: Yes reasonable and appropriate Spine SPINE TESTING CERVICAL THORACIC LUMBAR Musculoskeletal Strength 0=absent - 5=normal Details: Neurological exam of the upper extremities shows 4+ right cargo operations agent strength and biceps, all other muscle groups shows 5 power. Normal sensation across all dermatomes. There is brisk right knee reflexes. Swathi's negative. No midline tenderness and mild right paraspinal tenderness. Coding Level of Care Code Off vis,est,level 4 Diagnoses Cervical myelopathy with cervical radiculopathy G95.9; M54.12 Degenerative disc disease, cervical M50.30 Time Spent (min) 35 Assessment and Plan Assessment and Plan (1) Cervical myelopathy with cervical radiculopathy: Status: Acute (2) Degenerative disc disease, cervical: Status: Acute Plan Again reviewed prior imaging shows a mild multilevel disc height loss at C4-6. There is straightening of the normal cervical lordosis. Reviewed MRI from 09/10/24 which shows C4-5 retrolisthesis with a moderate diffuse disc bulge resulting in a moderately narrowed spinal canal and a severe right and moderate left neuroforaminal stenosis, C5-6 moderate diffuse disc bulge resulting in mild spinal stenosis and moderate bilateral neuroforaminal stenosis. 1. Cervical spondylosis with radiculopathy - Surgical intervention is planned due to significant spinal cord compression and nerve root involvement at C4-5 and C5-6. - A fusion surgery is recommended due to the presence of arthritis and osteophytes, which preclude disc replacement. 2. Diabetes mellitus, type 2 - Continue current management with metformin. - Monitor blood glucose levels closely around the time of surgery to prevent complications. 3. Hypertension - Continue current antihypertensive therapy. - Monitor blood pressure closely during the perioperative period. 4. Rheumatoid arthritis - Temporarily discontinue methotrexate to reduce the risk of infection and impaired wound healing post-surgery. - Resume after surgical wounds have healed. - Follow all pre-surgery instructions provided by your healthcare team. - Temporarily stop taking methotrexate as advised by your doctor. - Monitor your blood sugar levels closely, especially around the time of surgery. - Continue taking your blood pressure medication as prescribed. - Arrange for assistance at home post-surgery, especially with mobility and daily activities. Explained imaging findings in detail. Explained the progressive nature of cervical myelopathy. Discussed options today with the patient which includes a C4-6 ACDF. Explained the surgery in detail and discussed risks and benefits.Discussed this procedure in detail and explained the risks, benefits and alternatives. The risks of surgery include but are not limited to infection, bleeding, injury to nerves and vessels, hematoma formation, dysphagia, dysphonia, recurrent laryngeal nerve injury, Sveta syndrome, DVT, pulmonary embolism, pneumonia, atelectasis, cardiopulmonary event, pseudoarthrosis, hardware failure, adjacent segment degeneration, need for further surgery, nerve root injury, spinal cord injury. Answered all questions to the patient?s satisfaction. Patient understands and agrees to proceed with surgery. Consent was signed.Follow up 2 weeks post operative or sooner if pain, swelling, numbness or associated symptoms, or concerns develop. All questions answered. Patient in agreement of plan.
[2024-12-18] MEDS: Midazolam 2 MG/2 ML Syringe IV (07:30)
[2024-12-18] MEDS: Lidocaine 1% (5 ml sdv) 5 ML Vial 4 ML IV (07:40)
--- NOTE | 2024-12-18 07:45 | RAD_ITS ---
PROCEDURE: CERV SPINE 2 OR 3 VIEWS 12/18/2024 REASON FOR EXAM: ERAS, ANTERIOR CERVICAL FUSION C4-C5 AND C5-C6 TECHNIQUE: Procedure Code: RADSPCL Modality: DX Procedure: CERV SPINE 2 OR 3 VIEWS FINDINGS: Intraoperative fluoroscopy was performed. 2 images. 6.3 seconds. 0.58 mGy. See procedure report for full details. RAD/Cerv Spine 2 or 3 Views IMPRESSION: As above. Disclaimer: Reading Location: [id number]
[2024-12-18] MEDS: fentaNYL 100 MCG/2 ML Ampul 200 MCG IV (08:07)
[2024-12-18] MEDS: Lactated Ringers 2,000 ML 2000 ML IV (08:33)
[2024-12-18] MEDS: TRANEXAMIC ACID 1,000 MG/10 ML ML 2000 MG IV (09:26)
[2024-12-18] MEDS: Ketorolac 30 MG/ML Syringe IV (09:36)
--- NOTE | 2024-12-18 10:11 | PCM.POST.ANE ---
Anesthesia: Postop Eval I Current Vital Signs Temperature: 97.2 F Pulse Rate: 80 Blood Pressure: 115/94 Respiratory Rate: 16 Pulse Ox: 95 Oxygen Delivery Method: Nasal Cannula Oxygen Flow Rate (L/min): 4 Assessment Airway patent: Yes Spontaneous unlabored respirations: Yes Mental status: Awake nausea: No Vomiting: No Anesthesia Complication: No Fluid Hydration Crystalloid volume administer (ml): 1,400 Total IV fluid infused: 1,400 Progress Note Anesthesia document: Postop Eval 1 completed: Yes
--- NOTE | 2024-12-18 10:51 | PCM.OPRPT ---
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, radiculomyelopathy Post-Operative Diagnosis: Same Surgery/Procedure Performed: C4-6 ACDF slot key person: Yes Shoe Sewing Machine Operator And Tender: Sagrario Singh Tasks completed by insurance sales assistant: Closing, Removing tissue, Implanting device, Hemostasis: Electrocautery and Retracting Type of Anesthesia: General RN Documented Start/Stop Times: Operation Date: 12/18/24 07:30 Case Time Into Pre-Op 12/18/24 05:45 Out of Pre-Op 12/18/24 07:26 Anesthesia Start 12/18/24 07:30 Into Room 12/18/24 07:30 Procedure Start 12/18/24 08:07 Procedure End 12/18/24 09:56 Anesthesia End 12/18/24 10:05 Out of Room 12/18/24 10:05 Into Recovery 12/18/24 10:06 Procedure Start Time: 08:07 Procedure Stop Time: 09:56 Select all DRAINS/GRAFTS/IMPLANTS that apply: Graft Graft details: Allograft structural cortical cancellous strut, DBX and Implanted device Implanted device details: Medtronic [place] Elite plate instrumentation Estimated Blood Loss: 20 cc Specimen collected: No Description of surgery: Preoperative diagnosis: 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 Anesthesia: Gen. endotracheal Estimated blood loss: 20 mL Complications: None Instrumentation used: Medtronic [place] Elite plate, LASR corticocancellous block Indications: The patient is a pleasant 54-year-old lady who presented with neck pain, right worse than left upper extremity radiation, difficulty with dexterity and balance. MRI showed C4-6 disc degeneration with cord indentation and severe right worse than left foraminal stenosis. In order to halt the progression of myelopathy, the patient requested surgical treatment. All risks and benefits of the procedure were explained to the patient. The risks include but are not limited to infection, bleeding, injury to nerves and vessels, vertebral artery injury, spinal cord injury, paralysis, vocal cord paralysis, injury to esophagus, pseudoarthrosis, need for further procedures, adjacent segment degeneration. Procedure: The patient was identified in the preoperative suite using unique patient identifiers. Skin was marked consent was taken and all questions were answered. The patient was then brought back to the operative room and a timeout was performed. General endotracheal anesthesia was given. Intraoperative neuro monitoring leads were applied. The patient was carefully positioned supine on a regular OR table. A lateral view with a C-arm was done to identify the level and to define the incision. The anterior neck was then prepped and draped in the usual fashion. A final timeout was then performed. A transverse skin incision was taken to the left of midline. Subcutaneous tissue was then divided with Bovie. Platysma was identified and cut along the incision with scissors. The fascial interval between the sternocleidomastoid and the larynx was developed. Omohyoid was identified and retracted. The esophagus with the larynx was retracted medially to reach the prevertebral fascia. Marker x-ray was performed with bent spinal needle and disc space and levels were confirmed. Longus coli muscle was elevated on both sides at and above and below C4-6 discs. Self-retaining retractors were then placed. A long handle knife was then used to perform annulotomy at C4-5. Disc fragments were removed with the pituitary. [place] pins were placed in C4 and C5 for disc distraction. Curettes and bur was utilized to remove cartilage from the endplates. Discectomy was performed laterally up to the uncovertebral joints. Posterior osteophytes were thinned down with the bur and adequate decompression in the central and foraminal areas were performed and PLL was thinned out. Once the disc space was prepared, trials of various sizes were utilized. Thorough irrigation was given. 6 mm LASR cortical cancellous allograft bone large footprint was then fashioned in such a way that concavities were burred out inferiorly and superiorly and half cc of DBX (demineralized bone matrix) was squeezed into the cancellous portion. The graft was then inserted into the C4-5 disc space. The retractors were then repositioned and the procedure was repeated for C5-6 disc with complete discectomy. Graft size was 6 mm at with large footprint at C5-6. The grafts were found to be in good apposition with good pullout strength. A 42 mm Medtronic [place] Elite plate was then fixed to C4-6 with 15 mm screws. A lateral x-ray was then taken to check the length of the screws. Both AP and lateral x-rays showed good positioning of plate and screws. The locking mechanism over the screw heads was then turned. Thorough irrigation was again given. Hemostasis was achieved with bipolar cautery and Floseal. Closure was done with 3-0 Vicryl for the platysma and subcutaneous tissue layers and 4-0 Monocryl for the skin. Steri-Strips were applied and dressing was done with 4 x 4 gauze and Tegaderm. A cervical collar was then applied. The patient was then woken up from anesthesia extubated and taken to PACU in stable condition. From here, the patient will be transitioned to the floor. Intraoperative neuro monitoring was performed throughout this procedure. Motor evoked potentials were run periodically. All potentials remained at baseline throughout the procedure. I was present for the entire surgery and performed the surgery myself. Hot Plate Plywood Press Laborer Sagrario Singh PA-C. My physician retail sales assistant was a vital part of this case. They were important in appropriate retraction during the case, and protection of soft tissues during the procedure. Their intimate knowledge of the case and my steps aided in safe and expedient completion of the procedure as well as appropriate position of the patient during the surgery. They were also vital in assisting with closure under my direct supervision. Surgical Findings: See operative note Complications Complications: No
[2024-12-18] MEDS: HYDROcodone Bitartrate/Apap 5/325 Tablet PO (11:26)
--- NOTE | 2024-12-18 13:25 | POSTOPAN2_ITS ---
Anesthesia Postop Eval I Sum Postop Eval Completion status Anesthesia document: Postop Eval 1 completed: Yes Anesthesia Postop Eval I Summary Anesthesia Postop Eval I Summary: Anesthesia Postop Eval I: Assessment Summary Airway patent Yes 12/18/24 10:12 [email or web address] Spontaneous unlabored Yes 12/18/24 10:12 [email or web address] respirations Mental status Awake 12/18/24 10:12 [email or web address] nausea No 12/18/24 10:12 [email or web address] Vomiting No 12/18/24 10:12 [email or web address] Anesthesia Postop Eval I: Fluid Summary Crystalloid volume administer 1,400 12/18/24 10:12 [email or web address] (ml) Colloids volume administered ( ml) Blood Product volume administered (ml) Total IV fluid infused 1,400 12/18/24 10:12 [email or web address] Anesthesia Postop Eval I: Summary Notes Anesthesia Complication No 12/18/24 10:12 [email or web address] Anesthesia Complication Comment: Post-operative progress note Anesthesia: Postop Eval II Evaluation Mental status: Awake and Calm Pain Level: 1 nausea: No Vomiting: No Complications Anesthesia Complication: No
--- NOTE | 2024-12-18 13:25 | PCM.POSTANE2 ---
Anesthesia Postop Eval I Sum Postop Eval Completion status Anesthesia document: Postop Eval 1 completed: Yes Anesthesia Postop Eval I Summary Anesthesia Postop Eval I Summary: Anesthesia Postop Eval I: Assessment Summary Airway patent Yes 12/18/24 10:12 [email or web address] Spontaneous unlabored Yes 12/18/24 10:12 [email or web address] respirations Mental status Awake 12/18/24 10:12 [email or web address] nausea No 12/18/24 10:12 [email or web address] Vomiting No 12/18/24 10:12 [email or web address] Anesthesia Postop Eval I: Fluid Summary Crystalloid volume administer 1,400 12/18/24 10:12 [email or web address] (ml) Colloids volume administered ( ml) Blood Product volume administered (ml) Total IV fluid infused 1,400 12/18/24 10:12 [email or web address] Anesthesia Postop Eval I: Summary Notes Anesthesia Complication No 12/18/24 10:12 [email or web address] Anesthesia Complication Comment: Post-operative progress note Anesthesia: Postop Eval II Evaluation Mental status: Awake and Calm Pain Level: 1 nausea: No Vomiting: No Complications Anesthesia Complication: No
== END 2024-12-18 12:51 | disposition home or self-care (01) ==
LOC: SDC 05:31 → AC 05:33
PROVIDERS: Student in an Organized Health Care Education/Training Program; PCP Family Medicine; Referring Provider Family Medicine; Visit Provider Orthopaedic Surgery Orthopaedic Surgery of the Spine
PROC: (CPT 22551; principal; 2024-12-18 07:00)
DX: M50.021 Cervical disc disorder at C4-C5 level with myelopathy (principal); M06.9 Rheumatoid arthritis, unspecified; E11.42 Type 2 diabetes mellitus with diabetic polyneuropathy; M50.022 Cervical disc disorder at C5-C6 level with myelopathy; M48.02 Spinal stenosis, cervical region; K21.9 Gastro-esophageal reflux disease without esophagitis; I10 Essential (primary) hypertension; Z79.899 Other long term (current) drug therapy; Z79.84 Long term (current) use of oral hypoglycemic drugs; Z87.891 Personal history of nicotine dependence
CPT/HCPCS: 22551; 22845; 22552; 20931; 00600; 36415; 72040; 76000; 80053; 80061; 82306; 82962; 83036; 83735; 85025; 86850; 86900; 86901; 87077; 87081; C1713; J2405; J3475

== ENCOUNTER → 2025-02-07 | Outpatient (CLI) | payer BC, SELFPAY ==
[2025-02-07 17:57] LABS: Creatinine, Urine (random) 94.00 mg/dL (28.00-217.00); Microalbumin,Random Urine 13.3 mg/L (<20 mg/L)
== END | disposition home or self-care (01) ==
LOC: LABSPEC 16:36
PROVIDERS: PCP Family Medicine; Visit Provider Family Medicine
DX: E11.9 Type 2 diabetes mellitus without complications (principal)
CPT/HCPCS: 82043; 82570

== ENCOUNTER → 2025-03-10 | Outpatient (CLI) | payer BC, SELFPAY ==
[2025-03-10 17:51] LABS: Hematocrit 41.3 % (37-47); Hemoglobin 12.9 g/dL (12.0-15.0); Immature Granulocytes Count 0.030 X10^3/uL (0.0-0.0); Mean Corp Hgb Conc 31.2 g/dL (32-36); Mean Corpuscular Volume 85.2 fL (81-99); Mean Platelet Vol. 11.0 fl (6.2-12.0); NRBC Flagged by Analyzer 0 % (0-5); Platelet Count 348 K/mm3 (150-450); RBC Distribution Width CV 13.7 % (11.6-14.6); RBC Distribution Width SD 42.5 fl (35.1-43.9); Red Blood Count 4.85 M/mm3 (4.2-5.4); White Blood Count 8.7 K/mm3 (4.4-11.0)
[2025-03-10 18:35] LABS: AST(SGOT) 16 U/L (<=31); Alanine Aminotransfer ALT/SGPT 10 U/L (<=34); Albumin, Serum 4.2 g/dL (3.5-5.0); Alkaline Phosphatase 70 U/L (35-104); Anion Gap 12 (5-15); BUN 15 mg/dL (4-19); BUN/Creat Ratio 15.4 RATIO (10-20); Calcium,Total 9.5 mg/dL (7.6-11.0); Carbon Dioxide 26.3 mmol/L (21.0-32.0); Chloride 100 mmol/L (98-108); Globulin 3.2 g/dL (2.2-4.2); Glucose 117 mg/dL (70-99); Potassium 4.0 mmol/L (3.3-5.1)
== END | disposition home or self-care (01) ==
LOC: MTLAB 16:14
PROVIDERS: PCP Family Medicine; Referring Provider Internal Medicine Rheumatology; Visit Provider Internal Medicine Rheumatology
DX: L40.59 Other psoriatic arthropathy (principal); Z79.899 Other long term (current) drug therapy
CPT/HCPCS: 36415; 80053; 85025